=== PATIENT | female | born 1940 | race Caucasian/White ===

== ENCOUNTER 2017-03-22 04:13 | Inpatient (IN) | payer OTHER, MEDICARE ==
[2017-03-22] VITALS (10 sets, daily range): BP systolic 130–170; BP diastolic 67–81; PULSE 71–93; RESP 12–20; TEMP 96.2–98.4; O2SAT 96–98
[~2017-03-22] VITALS: Ht 160 cm; Wt 56.2 kg
[2017-03-22] MEDS ORDERED: AMLO5TAB2 PO (04:37)
[2017-03-22] MEDS ORDERED: LISI-515 PO (04:37)
[2017-03-22] MEDS ORDERED: HYDR-3516 PO (04:37)
[2017-03-22] MEDS ORDERED: BACL10TA PO (04:37)
[2017-03-22] MEDS ORDERED: METO50TA11 PO (04:38)
[2017-03-22 04:51] LABS: AUTOMATED NEUTROPHIL # 15.9 TH/MM3 (1.8-7.7); BASOPHIL # 0.1 TH/MM3 (0-0.2); BASOPHIL % 0.3 % (0.0-2.0); EOSINOPHIL # 0.1 TH/MM3 (0-0.4); EOSINOPHIL % 0.7 % (0.0-4.0); HEMATOCRIT 37.8 % (35.0-46.0); HEMO FLAGS DIFF FINAL; LYMPH % 9.5 % (9.0-44.0); LYMPHOCYTE # 1.8 TH/MM3 (1.0-4.8); MEAN CELL VOLUME 89.1 FL (80.0-100.0); MEAN CORPUSCULAR HEMOGLOBIN 29.4 PG (27.0-34.0); NEUT % 84.5 % (16.0-70.0); PLATELET COUNT 417 TH/MM3 (150-450); RED BLOOD COUNT 4.25 MIL/MM3 (4.00-5.30); RED CELL DISTRIBUTION WIDTH 13.5 % (11.6-17.2); WHITE BLOOD COUNT 18.8 TH/MM3 (4.0-11.0)
--- NOTE | 2017-03-22 04:57 | RADRPT ---
EXAM DATE/TIME: 03/22/2017 04:48 [facility] COMPARISON: No previous studies available for comparison. INDICATIONS : Cough. MEDICAL HISTORY : Carcinoma, breast. SURGICAL HISTORY : Mastectomy, left. ENCOUNTER: Initial ACUITY: 1 day PAIN SCORE: 0/10 LOCATION: Bilateral chest FINDINGS: A single view of the chest demonstrates the lungs to be symmetrically aerated without evidence of mas s, infiltrate or effusion. The cardiomediastinal contours are unremarkable. Osseous structures are intact. CONCLUSION: No acute intrathoracic disease. Elijah Gaona MD on March 22, 2017 at 4:55 Board Certified Radiologist. This report was verified electronically.
--- NOTE | 2017-03-22 04:58 | RADRPT ---
EXAM DATE/TIME: 03/22/2017 04:40 [facility] COMPARISON: No previous studies available for comparison. INDICATIONS : Altered mental status. RADIATION DOSE: 56.35 CTDIvol (mGy) MEDICAL HISTORY : Hypertension. Carcinoma, breast. SURGICAL HISTORY : Mastectomy, left. ENCOUNTER: Initial ACUITY: 1 day PAIN SCALE: 0/10 LOCATION: cranial TECHNIQUE: Multiple contiguous axial images were obtained of the head. Using automated exposure control and adj ustment of the mA and/or kV according to patient size, radiation dose was kept as low as reasonably a chievable to obtain optimal diagnostic quality images. FINDINGS: CEREBRUM: The ventricles are normal for age. No evidence of midline shift, mass lesion, hemorrhage or acute in farction. No extra-axial fluid collections are seen. POSTERIOR FOSSA: The cerebellum and brainstem are intact. The 4th ventricle is midline. The cerebellopontine angle i s unremarkable. EXTRACRANIAL: The visualized portion of the orbits is intact. SKULL: The calvaria is intact. No evidence of skull fracture. CONCLUSION: Unremarkable CT scan of the brain. Elijah Gaona MD on March 22, 2017 at 4:55 Board Certified Radiologist. This report was verified electronically.
--- NOTE | 2017-03-22 05:16 | PD ---
HPI Chief Complaint: Altered Mental Status Time Seen by Provider: 04:22 Travel History International Travel<30 days: No Contact w/Intl Traveler<30days: No Traveled to known affect area: No History of Present Illness HPI The patient is a 77 year old female who presents to the [facility] emergency department with a history of reportedly not feeling right since Wednesday. She reports that she was seen by the nurse practitioner at her primary care physician's office on Wednesday related to an exacerbation of low back pain in the left side of her back. She reports that she was newly placed on baclofen. She reports that since then she has intermittently been taking this, however she cannot specify the frequency. She reports that she feels confused. The patient reports that she lives at home alone. The patient is oriented to person, place, however not time, or details regarding the situation. She denies hitting her head or losing consciousness. She denies having any headache or neck pain. She denies having any dysuria, hematuria, urinary urgency, or frequency. The patient denies any recent fevers, cough, congestion, neck pain, chest pain, shortness of breath, abdominal pain, vomiting, diarrhea, one-sided weakness, slurred speech, dizziness, facial droop, difficulty with word finding ability, or vision changes. PFSH Past Medical History Narrative Medical The patient's past medical history is significant for high blood pressure, history of breast cancer, history of COPD, history of hypertension, history of daily tobacco use. Cancer: Yes (breast) Hypertension: Yes Musculoskeletal: Yes (chronic back pain) Tetanus Vaccination: Unknown Influenza Vaccination: No ?: Not Past Surgical History Narrative Surgical The patient's past surgical history is significant for a mastectomy, left wrist ORIF, tonsillectomy. Other Surgery: Yes (left mastectomy) Social History Alcohol Use: No Tobacco Use: Yes (one pack per day) Substance Use: No Allergies-Medications (Allergen,Severity, Reaction): Coded Allergies: No Known Allergies (Unverified , 03/22/17) Reported Meds & Prescriptions Reported Meds & Active Scripts Active Reported Metoprolol Succinate ER 24 HR (Metoprolol Succinate) 50 Mg Tab 50 Mg PO DAILY Hydrocodone-Acetaminophen 5-325 mg Tab 1 Tab PO Q4H PRN Lisinopril 20 Mg Tab 20 Mg PO DAILY Baclofen 10 Mg Tab 10 Mg PO TID Amlodipine (Amlodipine Besylate) 5 Mg Tab 5 Mg PO DAILY Review of Systems Except as stated in HPI: all other systems reviewed are Neg General / Constitutional: No: Fever Eyes: No: Visual changes HENT: No: Headaches, Neck Stiffness, Neck Pain Cardiovascular: No: Chest Pain or Discomfort Respiratory: No: Shortness of Breath Gastrointestinal: No: Abdominal Pain Genitourinary: No: Dysuria Musculoskeletal: Positive: Myalgias, Arthralgias, Pain Skin: No Rash Neurologic: Positive: Change in Mentation, No: Weakness, Focal Abnormalities, Headache, Slurred Speech, Sensory Disturbance Psychiatric: No: Depression Endocrine: No: Polydipsia Hematologic/Lymphatic: No: Easy Bruising Physical Exam Narrative General: The patient is a well-developed well-nourished female in no acute distress. The patient has difficulty tracking the conversation, easily coming distracted. Head and Neck exam: Head is normocephalic atraumatic. Eyes: EOMI, pupils are equal round and reactive to light. Nose: Midline septum with pink mucous membranes Mouth: Dentition unremarkable. Moist mucus membranes. Posterior oropharynx is not erythematous. No tonsillar hypertrophy. Uvula midline. Airway patent. Neck: No palpable lymphadenopathy. No nuchal rigidity. No thyromegaly. Cardiovascular: Regular rate and rhythm without murmurs, gallops, or rubs. Lungs: Soft expiratory wheezes are audible bilaterally. No conversational dyspnea. No rhonchi or crackles. No accessory muscle use. Abdomen: Soft, without tenderness to palpation in all 4 quadrants of the abdomen. No guarding, rebound, or rigidity. Normal bowel sounds are audible. No tenderness on palpation of McBurney's point. Extremities: No clubbing, cyanosis, or edema. 2+ pulses in all 4 extremities. Back: No spinous process tenderness to palpation. The patient reports tenderness on palpation along the left upper lumbar paraspinal musculature and left sided CVA tenderness. Neurologic Exam: Cranial nerves 2-12 were intact on exam. Strength is 5/5 in all 4 extremities. No sensory deficits noted. The patient is oriented to person, place, however not time or situation. Skin Exam: No rash noted. Intact skin that is warm and dry. Data Data Last Documented VS Vital Signs Date Time Temp Pulse Resp B/P Pulse Ox O2 Delivery O2 Flow Rate FiO2 03/22/17 04:32 16 98 Room Air 03/22/17 04:30 98.2 93 137/67 Orders Electrocardiogram (03/22/17 04:22) Complete Blood Count With Diff (03/22/17 04:22) Comprehensive Metabolic Panel (03/22/17 04:22) Creatine Kinase (Cpk) (03/22/17 04:22) Ckmb (Isoenzyme) Profile (03/22/17 04:22) Troponin I (03/22/17 04:22) Lipase (03/22/17 04:22) Urinalysis - C+S If Indicated (03/22/17 04:22) Cath For Specimen (03/22/17 04:22) Magnesium (Mg) (03/22/17 04:22) Ammonia (03/22/17 04:22) Thyroid Stimulating Hormone (03/22/17 04:22) Chest, Single Ap (03/22/17 04:22) Ct Brain W/O Iv Contrast(Rout) (03/22/17 04:22) Iv Access Insert/Monitor (03/22/17 04:22) Ecg Monitoring (03/22/17 04:22) Oximetry (03/22/17 04:22) Sodium Chlor 0.9% 1000 Ml Inj (Ns 1000 M (03/22/17 06:00) Admit Order (Ed Use Only) (03/22/17 06:13) Labs Laboratory Tests Test 03/22/17 03/22/17 04:40 05:00 White Blood Count 18.8 TH/MM3 Red Blood Count 4.25 MIL/MM3 Hemoglobin 12.5 GM/DL Hematocrit 37.8 % Mean Corpuscular Volume 89.1 FL Mean Corpuscular Hemoglobin 29.4 PG Mean Corpuscular Hemoglobin 33.0 % Concent Red Cell Distribution Width 13.5 % Platelet Count 417 TH/MM3 Mean Platelet Volume 7.1 FL Neutrophils (%) (Auto) 84.5 % Lymphocytes (%) (Auto) 9.5 % Monocytes (%) (Auto) 5.0 % Eosinophils (%) (Auto) 0.7 % Basophils (%) (Auto) 0.3 % Neutrophils # (Auto) 15.9 TH/MM3 Lymphocytes # (Auto) 1.8 TH/MM3 Monocytes # (Auto) 0.9 TH/MM3 Eosinophils # (Auto) 0.1 TH/MM3 Basophils # (Auto) 0.1 TH/MM3 CBC Comment DIFF FINAL Differential Comment Sodium Level 137 MEQ/L Potassium Level 4.0 MEQ/L Chloride Level 103 MEQ/L Carbon Dioxide Level 21.0 MEQ/L Anion Gap 13 MEQ/L Blood Urea Nitrogen 20 MG/DL Creatinine 1.22 MG/DL Estimat Glomerular Filtration 43 ML/MIN Rate Random Glucose 195 MG/DL Calcium Level 12.4 MG/DL Protein Corrected Calcium 12.2 MG/DL Magnesium Level 1.8 MG/DL Total Bilirubin 0.5 MG/DL Aspartate Amino Transf 15 U/L (AST/SGOT) Alanine Aminotransferase 12 U/L (ALT/SGPT) Alkaline Phosphatase 79 U/L Ammonia 14 MCMOL/L Total Creatine Kinase 29 U/L Troponin I LESS THAN 0.02 NG/ML Total Protein 7.4 GM/DL Albumin 3.3 GM/DL Lipase 107 U/L Thyroid Stimulating Hormone 1.750 uIU/ML 3rd Gen Urine Color YELLOW Urine Turbidity CLEAR Urine pH 5.0 Urine Specific [place] 1.019 Urine Protein 30 mg/dL Urine Glucose (UA) NEG mg/dL Urine Ketones 10 mg/dL Urine Occult Blood NEG Urine Nitrite NEG Urine Bilirubin NEG Urine Urobilinogen LESS THAN 2.0 MG/DL Urine Leukocyte Esterase NEG Urine RBC LESS THAN 1 /hpf Urine WBC 1 /hpf Urine Squamous Epithelial <1 /hpf Cells Urine Mucus FEW /lpf Microscopic Urinalysis Comment CATH-CULT NOT IND MDM Medical Decision Making Medical Screen Exam Complete: Yes Emergency Medical Condition: Yes Medical Record Reviewed: Yes Interpretation(s) Last Impressions Head CT 03/22/17421 Signed Impressions: Service Date/Time: Wednesday, March 22, 2017 04:40 - CONCLUSION: Unremarkable CT scan of the brain. Elijah Gaona MD Chest X-Ray 03/22/17421 Signed Impressions: Service Date/Time: Wednesday, March 22, 2017 04:48 - CONCLUSION: No acute intrathoracic disease. Elijah Gaona MD Differential Diagnosis Medication side effect, versus metabolic encephalopathy, versus intracranial abnormality, versus encephalopathy related to sepsis, versus urinary tract infection Narrative Course During the course of the patients emergency department visit, the patients history, examination, and differential diagnosis were reviewed with the patient. The patient had IV access obtained and blood work sent for analysis. The patient was placed on a room service attendant with oximetry and blood pressure monitoring. An EKG and. The patient's EKG shows a sinus rhythm, heart rate of 98, no acute ST segment elevation or depression, T waves are inverted in V1. The patient was initially provided a DuoNeb 1 for wheezing, normal saline 1 L IV fluid bolus was administered. The patients laboratory studies were reviewed and remarkable for a white count of 18.8, normal hemoglobin, CMP is remarkable for hypercalcemia, ammonia level XIV and asked within normal limits. Urinalysis showed ketones present, no signs of infection. Radiology studies were reviewed and remarkable for a chest x-ray that showed no acute abnormality. CT scan of the brain showed no acute abnormality. The patient's altered mentation is thought to be related to a combination of new use of baclofen, and hypercalcium. The patient will be admitted to the hospital for continued evaluation and treatment. The patients results were discussed with the patient, including the plan of care. I explained that further testing and/ or monitoring is indicated based on the patients history, examination, and/ or laboratory findings. Therefore, I recommended admission for additional evaluation. The patient expressed understanding and was agreeable with this plan. The patient was admitted to the hospital in stable condition and [facility] Physician Communication Physician Communication The patient's case was discussed with Dr. Herman who did agree to admit the patient for further evaluation and treatment at this time. Diagnosis Primary Impression: Altered mental status Qualified Code: R41.0 - Disorientation Additional Impressions: Medication side effect Qualified Code: T88.7XXA - Medication side effect, initial encounter Hypercalcemia Leukocytosis Qualified Code: D72.829 - Leukocytosis, unspecified type Admitting Information Admitting Physician Requests: Viviana Richter MD Mar 22, 2017 05:16
[2017-03-22 05:24] LABS: BLOOD, URINE NEG (NEG); COMMENT (UR) CATH-CULT NOT IND; CULTURE IF INDICATED CATH CULTURE NOT IND; GLUCOSE,URINE NEG (NEG); KETONE, URINE 10 mg/dL (NEG); MUCUS URINE FEW /lpf (OCC); NITRITE,URINE NEG (NEG); SQUAMOUS EPITHELIAL CELL URINE <1 /hpf (0-5); URINE COLOR YELLOW (YELLW/STRAW)
[2017-03-22 05:43] LABS: ALKALINE PHOSPHATASE 79 U/L (45-117); ALT (GPT) 12 U/L (10-53); ANION GAP 13 MEQ/L (5-15); AST (GOT) 15 U/L (15-37); BLOOD UREA NITROGEN 20 MG/DL (7-18); CHLORIDE 103 MEQ/L (98-107); GLOMERULAR FILTRATION RATE 43 ML/MIN (>89); MAGNESIUM 1.8 MG/DL (1.5-2.5); SODIUM (NA) 137 MEQ/L (136-145); TOTAL BILIRUBIN ADULT 0.5 MG/DL (0.2-1.0)
[2017-03-22 05:54] LABS: CALCIUM-PROTEIN CORRECTED 12.2 MG/DL (8.5-10.1); CREATINE KINASE 29 U/L (26-192)
[2017-03-22] MEDS ORDERED: SODIUM CHLOR 0.9% 1000 ML INJ 1,000 ML IV ONE (06:00)
[2017-03-22] MEDS ORDERED: ACETAMINOPHEN 325 MG TAB PO PRN ×2 (06:30)
[2017-03-22] MEDS ORDERED: NALOXONE HCL 0.4 MG/ML AMP IV PRN (06:30)
[2017-03-22] MEDS ORDERED: ONDANSETRON HCL 4 MG/2 ML VIAL IVP PRN (06:30)
[2017-03-22] MEDS ORDERED: SODIUM CHLORIDE 0.9% FLUSH 10 ML FLUSH IV FLUSH PRN ×2 (06:30→06:45)
[2017-03-22] MEDS ORDERED: RESP: ALBUTEROL 2.5 MG/IPRATROPIUM 0.5 MG NEB (PRN) NEB (06:30)
[2017-03-22] MEDS ORDERED: SODIUM CHLORIDE 0.9% FLUSH 10 ML FLUSH IV FLUSH SCH (09:00)
[2017-03-22] MEDS: SODIUM CHLORIDE 0.9% FLUSH 10 ML FLUSH IV FLUSH SCH (09:00)
[2017-03-22] MEDS: METOPROLOL SUCCINATE 50 MG EXTENDED RELEASE TAB PO SCH (09:58)
[2017-03-22] MEDS: amLODIPine BESYLATE 5 MG TAB PO SCH (09:58)
[2017-03-22] MEDS: SODIUM CHLOR 0.9% 1000 ML INJ 1,000 ML IV SCH ×2 (10:00→16:34)
--- NOTE | 2017-03-22 14:24 | EKG ---
Date Performed: 03/22/2017 Time Performed: 04:24:48 PTAGE: 77 years EKG: Sinus rhythm POSSIBLE RIGHT VENTRICULAR CONDUCTION DELAY BORDERLINE ECG INTERPRETATION BASED ON A DEFAULT AGE OF 41 YEARS NO PREVIOUS TRACING DOCTOR: Kalin Mazariegos Interpretating Date/Time 03/22/2017 14:21:55
--- NOTE | 2017-03-22 15:00 | HHI.HP ---
[facility] Admission Diagnosis AMS, Hypercalcemia Diagnoses: Chief Complaint: confusion Travel History International Travel<30 Days: No Contact w/Intl Traveler <30 Da: No Traveled to Known Affected Are: No History of Present Illness 77 y/o female with a history of breast CA s/p mastectomy 2015, HTN, and COPD presented to the ED with confusion. Patient states she went to her PCP on Wednesday with complaints of left flank pain and she was given an RX for Baclofen. She took one pill late Wednesday night and then 3 pills on Wednesday and another 2 on Wednesday she thinks. She felt that she was confused and not thinking correctly so she came into the ED. She is slightly confused as she thinks it is 2013, but she knows the month, place and president. She denies any other complaints. No chest pain, sob, dysuria or nausea. While talking with the patient her sister called and the patient seemed confused about the events for the last few days. She say she has not been eating or drinking well, loss of appetite and has lost 9lbs in 8 days. When told her calcium level was high she states she takes calcium supplements daily with her slimfast. She denies any focal weakness or any other neuro symptoms. Review of Systems Constitutional: COMPLAINS OF: Weight loss, Dizziness, DENIES: Fever, Chills Respiratory: DENIES: Cough, Shortness of breath Cardiovascular: DENIES: Chest pain, Lower Extremity Edema Gastrointestinal: DENIES: Abdominal pain, Diarrhea, Nausea, Vomiting Genitourinary: DENIES: Urgency, Dysuria Musculoskeletal: DENIES: Back pain, Neck pain Integumentary: DENIES: Rash Hematologic/lymphatic: DENIES: Lymphadenopathy Immunologic/allergic: DENIES: Urticaria Neurologic: DENIES: Headache Except as stated in HPI: all other systems reviewed are Neg Past Family Social History Past Medical History Breast Cancer HTN COPD Tobacco abuse Past Surgical History 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 Reported Medications Reported Meds & Active Scripts Active Reported Metoprolol Succinate ER 24 HR (Metoprolol Succinate) 50 Mg Tab 50 Mg PO DAILY Hydrocodone-Acetaminophen 5-325 mg Tab 1 Tab PO Q4H PRN Lisinopril 20 Mg Tab 20 Mg PO DAILY Baclofen 10 Mg Tab 10 Mg PO TID Amlodipine (Amlodipine Besylate) 5 Mg Tab 5 Mg PO DAILY Allergies: Coded Allergies: No Known Allergies (Unverified , 03/22/17) Active Ordered Medications Current Medications Medications (Trade) Dose Ordered Sig/Bassem Route Start Time Stop Time Status Last Admin (Norvasc) 5 mg DAILY PO 03/22/17 09:00 03/22/17 09:58 (Toprol Xl) 50 mg DAILY PO 03/22/17 09:00 03/22/17 09:58 (NS Flush) 2 ml UNSCH PRN IV FLUSH 03/22/17 06:30 (NS Flush) 2 ml BID IV FLUSH 03/22/17 09:00 03/22/17 09:00 (Tylenol) 650 mg Q4H PRN PO 03/22/17 06:30 (Zofran Inj) 4 mg Q6H PRN IVP 03/22/17 06:30 (Tylenol) 650 mg Q6H PRN PO 03/22/17 06:30 Naloxone HCl 0.4 mg 0.4 mg UNSCH PRN IV 03/22/17 06:30 (NS 1000 ml Inj) 1,000 ml @ 100 mls/hr Q10H IV 03/22/17 06:34 03/22/17 10:00 Family History Dad and brother: stomach cancer Social History Tobacco use: 1 PPD Alcohol use: Denies Illicit drug use: Denies Physical Exam Vital Signs Vital Signs Date Time Temp Pulse Resp B/P Pulse Ox O2 Delivery O2 Flow Rate FiO2 03/22/17 10:00 96.3 87 19 146/80 97 03/22/17 06:34 84 16 130/79 96 Room Air 03/22/17 04:32 16 98 Room Air 03/22/17 04:32 18 03/22/17 04:30 98.2 93 16 137/67 98 Physical Exam GENERAL: This is a well-nourished, well-developed patient, in no apparent distress. SKIN: No rashes, ecchymoses or lesions. Cool and dry. HEAD: Atraumatic. Normocephalic. EYES: Pupils equal round and reactive. ENT: Nose without bleeding, purulent drainage or septal hematoma. Airway patent. NECK: Trachea midline. No JVD CARDIOVASCULAR: Regular rate and rhythm without murmurs, gallops, or rubs. RESPIRATORY: Clear to auscultation. Breath sounds equal bilaterally. No wheezes , rales, or rhonchi. GASTROINTESTINAL: Abdomen soft, non-tender, nondistended. No hepato-splenomegaly , or palpable masses. No guarding. MUSCULOSKELETAL: Extremities without clubbing, cyanosis, or edema. No joint tenderness, effusion, or edema noted. No calf tenderness. NEUROLOGICAL: Awake and alert. Slightly confused at times but can hold a conversation. Motor and sensory grossly within normal limits. Five out of 5 muscle strength in all muscle groups. Normal speech. Laboratory Laboratory Tests Test 03/22/17 03/22/17 04:40 05:00 White Blood Count 18.8 Red Blood Count 4.25 Hemoglobin 12.5 Hematocrit 37.8 Mean Corpuscular Volume 89.1 Mean Corpuscular Hemoglobin 29.4 Mean Corpuscular Hemoglobin 33.0 Concent Red Cell Distribution Width 13.5 Platelet Count 417 Mean Platelet Volume 7.1 Neutrophils (%) (Auto) 84.5 Lymphocytes (%) (Auto) 9.5 Monocytes (%) (Auto) 5.0 Eosinophils (%) (Auto) 0.7 Basophils (%) (Auto) 0.3 Neutrophils # (Auto) 15.9 Lymphocytes # (Auto) 1.8 Monocytes # (Auto) 0.9 Eosinophils # (Auto) 0.1 Basophils # (Auto) 0.1 CBC Comment DIFF FINAL Differential Comment Sodium Level 137 Potassium Level 4.0 Chloride Level 103 Carbon Dioxide Level 21.0 Anion Gap 13 Blood Urea Nitrogen 20 Creatinine 1.22 Estimat Glomerular Filtration 43 Rate Random Glucose 195 Calcium Level 12.4 Protein Corrected Calcium 12.2 Magnesium Level 1.8 Total Bilirubin 0.5 Aspartate Amino Transf 15 (AST/SGOT) Alanine Aminotransferase 12 (ALT/SGPT) Alkaline Phosphatase 79 Ammonia 14 Total Creatine Kinase 29 Troponin I LESS THAN 0.02 Total Protein 7.4 Albumin 3.3 Lipase 107 Thyroid Stimulating Hormone 1.750 3rd Gen Urine Color YELLOW Urine Turbidity CLEAR Urine pH 5.0 Urine Specific [place] 1.019 Urine Protein 30 Urine Glucose (UA) NEG Urine Ketones 10 Urine Occult Blood NEG Urine Nitrite NEG Urine Bilirubin NEG Urine Urobilinogen LESS THAN 2.0 Urine Leukocyte Esterase NEG Urine RBC LESS THAN 1 Urine WBC 1 Urine Squamous Epithelial <1 Cells Urine Mucus FEW Microscopic Urinalysis Comment CATH-CULT NOT IND Result Diagram: 03/22/1743903/22/17439 Imaging Last Impressions Head CT 03/22/17421 Signed Impressions: Service Date/Time: Wednesday, March 22, 2017 04:40 - CONCLUSION: Unremarkable CT scan of the brain. Elijah Gaona MD Chest X-Ray 03/22/17421 Signed Impressions: Service Date/Time: Wednesday, March 22, 2017 04:48 - CONCLUSION: No acute intrathoracic disease. Elijah Gaona MD Assessment and Plan Problem List: (1) Acute encephalopathy ICD Code: G93.40 Status: Acute (2) Hypercalcemia ICD Code: E83.52 Status: Acute (3) DELANEY (acute kidney injury) ICD Code: N17.9 Status: Acute (4) HTN (hypertension) ICD Code: I10 Status: Chronic (5) COPD (chronic obstructive pulmonary disease) ICD Code: J44.9 Status: Chronic Assessment and Plan 77 y/o with a history of Breast cancer, COPD, and HTN presented to the ED with confusion after taking baclofen for a few days. Acute Encephalopathy, due to adverse reaction to baclofen -Head CT neg, if confusion persists or does not rapidly improve, will order MRI -UA negative -Parathyroid pending Hypercalcemia, likely due to dehydration and calcium supplements -IVF, 1 bolus given in ED. Continue IVF -Labs in AM DELANEY, likely due to dehydration Creatine 1.22, unknown baseline, patient denies any kidney disease -Cont IVF, repeat labs in am HTN, chronic -Cont home medications Norvasc and metoprolol -Monitor vitals COPD, chronic -Duonebs PRN Tobacco abuse -Counseled to quit DVT prophylaxis: SCDs Written by LESLIE Dodd acting as scribe for [Jeremías] on 03/22/17 at 13 :05. This note was transcribed by scribe [LESLIE Dodd]. I, Dr. Sudheer Veronica personally performed the history, physical exam, and medical decision making; and confirmed the accuracy of the information in the transcribed note. Authenticated by Dr. Sudheer Veronica on 4/24/17 at 1400. Discussed Condition With Patient and RN Physician Certification 2 Midnight Certification Type: Admission for Inpatient Services Order for Inpatient Services The services are ordered in accordance with Medicare regulations or non- Medicare payer requirements, as applicable. In the case of services not specified as inpatient-only, they are appropriately provided as inpatient services in accordance with the 2-midnight benchmark. Estimated LOS (days): 2 days is the estimated time the patient will need to remain in the hospital, assuming treatment plan goals are met and no additional complications. Post-Hospital Plan: Jillian Pelletier Mar 22, 2017 15:00 Sudheer Veronica MD Mar 22, 2017 15:11
[2017-03-23] VITALS (8 sets, daily range): BP systolic 132–156; BP diastolic 64–80; PULSE 61–83; RESP 16–20; TEMP 97.1–99.3; O2SAT 96–99
[2017-03-23] MEDS: SODIUM CHLOR 0.9% 1000 ML INJ 1,000 ML IV SCH ×2 (02:34→23:07)
[2017-03-23 06:22] LABS: AUTOMATED NEUTROPHIL # 9.4 TH/MM3 (1.8-7.7); BASOPHIL # 0.1 TH/MM3 (0-0.2); BASOPHIL % 0.7 % (0.0-2.0); EOSINOPHIL # 0.2 TH/MM3 (0-0.4); EOSINOPHIL % 1.7 % (0.0-4.0); HEMATOCRIT 33.2 % (35.0-46.0); HEMO FLAGS DIFF FINAL; LYMPH % 14.8 % (9.0-44.0); LYMPHOCYTE # 1.8 TH/MM3 (1.0-4.8); MEAN CELL VOLUME 87.2 FL (80.0-100.0); MEAN CORPUSCULAR HEMOGLOBIN 29.9 PG (27.0-34.0); MEAN CORPUSCULAR HGB CONC 34.3 % (32.0-36.0); MONO % 7.2 % (0.0-8.0); NEUT % 75.6 % (16.0-70.0); PLATELET COUNT 385 TH/MM3 (150-450); RED BLOOD COUNT 3.81 MIL/MM3 (4.00-5.30); RED CELL DISTRIBUTION WIDTH 13.4 % (11.6-17.2); WHITE BLOOD COUNT 12.5 TH/MM3 (4.0-11.0)
[2017-03-23 06:49] LABS: ALKALINE PHOSPHATASE 69 U/L (45-117); ALT (GPT) 11 U/L (10-53); ANION GAP 6 MEQ/L (5-15); AST (GOT) 14 U/L (15-37); BICARBONATE 26.3 MEQ/L (21.0-32.0); BLOOD UREA NITROGEN 12 MG/DL (7-18); CHLORIDE 107 MEQ/L (98-107); GLOMERULAR FILTRATION RATE 76 ML/MIN (>89); POTASSIUM 3.6 MEQ/L (3.5-5.1); SODIUM (NA) 139 MEQ/L (136-145); TOTAL BILIRUBIN ADULT 0.4 MG/DL (0.2-1.0)
[2017-03-23] MEDS: SODIUM CHLORIDE 0.9% FLUSH 10 ML FLUSH IV FLUSH SCH ×2 (09:00→21:00)
[2017-03-23] MEDS: amLODIPine BESYLATE 5 MG TAB PO SCH (09:39)
[2017-03-23] MEDS: METOPROLOL SUCCINATE 50 MG EXTENDED RELEASE TAB PO SCH (09:39)
--- NOTE | 2017-03-23 15:13 | HHI.PR ---
Subjective Remarks Patient seen in follow up for encephalopathy, Hypercalcemia. Patient reports she is feeling much better today except for some persistent left lower rib pain. I discussed with her sister Rayne over the phone. No longer having confusions. However her sister admits that for the past few months , it appears that her memory have not been the same. Objective Vitals Vital Signs Date Time Temp Pulse Resp B/P Pulse Ox O2 Delivery O2 Flow Rate FiO2 03/23/17 11:20 98.0 61 20 150/73 99 03/23/17 08:00 97.1 83 20 137/80 97 03/23/17 04:00 97.8 68 18 156/77 96 03/23/17 00:00 98.5 76 17 150/73 96 03/22/17 20:00 98.4 75 18 170/81 97 03/22/17 19:55 83 03/22/17 17:04 72 03/22/17 16:00 97.2 83 12 136/80 96 I/O 03/22/17 03/22/17 03/22/17 03/23/17 03/23/17 03/23/17 07:00 15:00 23:00 07:00 15:00 23:00 Intake Total 480 ml 880 ml 240 ml Output Total 650 ml Balance -170 ml 880 ml 240 ml Intake Oral 480 ml 240 ml 240 ml IV Total 640 ml Output Urine Total 650 ml # Voids 3 2 1 # Bowel Movements 0 0 Result Diagram: 03/23/17 0526 03/23/17 0526 Imaging Last Impressions Ribs X-Ray 03/23/17 0000 Signed Impressions: Service Date/Time: Thursday, March 23, 2017 15:51 - CONCLUSION: 1. Patchy opacity in the left lung base of concern for pneumonia. 2. Ribs are intact and there is no pneumothorax. Lázaro Bey MD Head CT 03/22/17421 Signed Impressions: Service Date/Time: Wednesday, March 22, 2017 04:40 - CONCLUSION: Unremarkable CT scan of the brain. Elijah Gaona MD Chest X-Ray 03/22/17421 Signed Impressions: Service Date/Time: Wednesday, March 22, 2017 04:48 - CONCLUSION: No acute intrathoracic disease. Elijah Gaona MD Objective Remarks GENERAL: This is a well-nourished, well-developed patient, in no apparent distress. CARDIOVASCULAR: Regular rate and rhythm without murmurs, gallops, or rubs. RESPIRATORY: Clear to auscultation. Breath sounds equal bilaterally. No wheezes , rales, or rhonchi. GASTROINTESTINAL: Abdomen soft, non-tender, nondistended. Normal active bowel sounds MUSCULOSKELETAL: Extremities without clubbing, cyanosis, or edema. Patient c/o some tenderness to palpation of the left lower ribs. NEURO: Alert & Oriented x4 to person, place, time, situation. Moves all ext x4 A/P Problem List: (1) Acute encephalopathy ICD Code: G93.40 Status: Acute (2) Hypercalcemia ICD Code: E83.52 Status: Acute (3) DELANEY (acute kidney injury) ICD Code: N17.9 Status: Acute (4) HTN (hypertension) ICD Code: I10 Status: Chronic (5) COPD (chronic obstructive pulmonary disease) ICD Code: J44.9 Status: Chronic Assessment and Plan 77 y/o with a history of Breast cancer, COPD, and HTN presented to the ED with confusion after taking baclofen for a few days. Acute Encephalopathy, probably due to adverse reaction to baclofen. Resolved. There may be some underlying very early dementia symptoms based on conversation with her sister. PCP can refer to outpatient neurologist for further neurocognitive testing. Seems to be back at her baseline. -Head CT neg. -UA negative -Parathyroid pending Hypercalcemia, likely due to dehydration and patient was taking calcium supplements, improving with IVF. Having rib pain as well. Will obtain x-ray of the ribs. -Continue IVF -Labs in AM DELANEY, likely due to dehydration Creatine 1.22, unknown baseline, patient denies any kidney disease -Cont IVF, repeat labs in am HTN, chronic -Cont home medications Norvasc and metoprolol -Monitor vitals Left rib pain: Persistent - Will obtain plain film to evaluate bones. Pain control COPD, chronic -Duonebs PRN Tobacco abuse -Counseled to quit Discharge Planning If patient continues to improve. She can be discharge tomorrow to follow up outpatient. Sudheer Veronica MD Mar 23, 2017 15:13
--- NOTE | 2017-03-23 16:37 | RADRPT ---
EXAM DATE/TIME: 03/23/2017 15:51 [facility] COMPARISON: CHEST SINGLE AP, March 22, 2017, 4:48. INDICATIONS : Left rib pain with no known injury. MEDICAL HISTORY : None. SURGICAL HISTORY : None. ENCOUNTER: Initial ACUITY: 2 months PAIN SCORE: 9/10 LOCATION: Left lower chest FINDINGS: Multiple views of both ribs were performed. There is no evidence of displaced fracture. No destruct favian lesions or areas of periosteal thickening are seen. There is patchy opacity in the left lung base . Expiratory view of the chest is negative for pneumothorax. The mediastinal structures are midline. CONCLUSION: 1. Patchy opacity in the left lung base of concern for pneumonia. 2. Ribs are intact and there is no pneumothorax. Lázaro Bey MD on March 23, 2017 at 16:33 Board Certified Radiologist. This report was verified electronically.
[2017-03-24] VITALS (8 sets, daily range): BP systolic 105–156; BP diastolic 60–82; PULSE 69–91; RESP 16–19; TEMP 97.3–98.6; O2SAT 95–97
[2017-03-24] MEDS: SODIUM CHLORIDE 0.9% FLUSH 10 ML FLUSH IV FLUSH SCH ×2 (09:00→20:50)
[2017-03-24] MEDS ORDERED: LACTULOSE SYRUP 20 GM/30 ML CUP PO PRN (09:30)
--- NOTE | 2017-03-24 09:34 | RADRPT ---
EXAM DATE/TIME: 03/24/2017 09:06 [facility] COMPARISON: RIBS BILAT(W PA CXR [id number]), March 23, 2017, 15:51. CHEST SINGLE AP, March 22, 2017, 4:48. INDICATIONS : Left-sided chest and rib pain. Abnormal ribs series demonstrating a left lung opacity. RADIATION DOSE: 3.45 CTDIvol (mGy) MEDICAL HISTORY : Hypertension. Carcinoma, breast. SURGICAL HISTORY : Mastectomy, left. ENCOUNTER: Initial ACUITY: 1 day PAIN SCALE: 4/10 LOCATION: Left chest TECHNIQUE: Volumetric scanning of the chest was performed. Using automated exposure control and adjustment of t he mA and/or kV according to patient size, radiation dose was kept as low as reasonably achievable to obtain optimal diagnostic quality images. FINDINGS: LUNGS: There is a cavitary mass in the left lower lobe measuring up to 4.2 x 3.5 x 5.2 cm in greatest diamet er. The central portion is cavitary surrounded by thick irregular wall measuring up to approximately 1.7 cm in greatest diameter. There is underlying emphysema and mild scarring. No additional masses ar e identified. PLEURAE: There is focal pleural thickening and apparent small effusion adjacent to the mass. There is a small area of adjacent rib deformity. MEDIASTINUM: There is right paratracheal adenopathy measuring up to 2.9 x 2.7 cm. There is subcarinal adenopathy a s well. There is no definite hilar adenopathy on this noncontrast study which reduces the sensitivity . Tracheal calcifications are present. There are mild abscess chronic changes in the aorta. AXILLAE: Within normal limits. No lymphadenopathy. MUSCULOSKELETAL: Within normal limits for patient age. MISCELLANEOUS: The visualized upper abdominal organs demonstrate no acute abnormality. CONCLUSION: 1. Cavitary mass in the left lower lobe concern for squamous cell carcinoma versus possible fungal in fection. This would be amenable to CT-guided core biopsy. 2. Adjacent pleural thickening and apparent small effusion with subtle adjacent rib destruction. 3. Mediastinal adenopathy. Lázaro Bey MD on March 24, 2017 at 9:18 Board Certified Radiologist. This report was verified electronically.
[2017-03-24] MEDS: METOPROLOL SUCCINATE 50 MG EXTENDED RELEASE TAB PO SCH (09:46)
[2017-03-24] MEDS: amLODIPine BESYLATE 5 MG TAB PO SCH (09:47)
[2017-03-24] MEDS: SODIUM CHLOR 0.9% 1000 ML INJ 1,000 ML IV SCH (09:48)
--- NOTE | 2017-03-24 12:38 | HHI.PR ---
Subjective Remarks Follow-up hypercalcemia and encephalopathy. States she is better she is alert and oriented with episodes of confusion. Made aware of abnormal lung CT agrees with a biopsy. History of breast cancer status post surgery. Discussed with RN Objective Vitals Vital Signs Date Time Temp Pulse Resp B/P Pulse Ox O2 Delivery O2 Flow Rate FiO2 03/24/17 09:00 81 03/24/17 08:00 97.8 89 18 152/73 97 03/24/17 05:55 98.0 91 16 156/82 96 03/23/17 23:00 70 03/23/17 20:03 70 03/23/17 19:52 99.3 78 16 132/64 96 03/23/17 16:48 98.6 75 17 140/67 97 I/O 03/23/17 03/23/17 03/23/17 03/24/17 03/24/17 03/24/17 07:00 15:00 23:00 07:00 15:00 23:00 Intake Total 240 ml 480 ml 563 ml Output Total 550 ml Balance 240 ml 480 ml 13 ml Intake Oral 240 ml 480 ml 100 ml IV Total 463 ml Output Urine Total 550 ml # Voids 1 3 2 # Bowel Movements 0 0 0 0 Result Diagram: 03/23/17 0526 03/23/17 0526 Imaging Last Impressions Chest CT 03/24/17 0600 Signed Impressions: Service Date/Time: Friday, March 24, 2017 09:06 - CONCLUSION: 1. Cavitary mass in the left lower lobe concern for squamous cell carcinoma versus possible fungal infection. This would be amenable to CT-guided core biopsy. 2. Adjacent pleural thickening and apparent small effusion with subtle adjacent rib destruction. 3. Mediastinal adenopathy. Lázaro Bey MD Ribs X-Ray 03/23/17 0000 Signed Impressions: Service Date/Time: Thursday, March 23, 2017 15:51 - CONCLUSION: 1. Patchy opacity in the left lung base of concern for pneumonia. 2. Ribs are intact and there is no pneumothorax. Lázaro Bey MD Head CT 03/22/17421 Signed Impressions: Service Date/Time: Wednesday, March 22, 2017 04:40 - CONCLUSION: Unremarkable CT scan of the brain. Elijah Gaona MD Chest X-Ray 03/22/17421 Signed Impressions: Service Date/Time: Wednesday, March 22, 2017 04:48 - CONCLUSION: No acute intrathoracic disease. Elijah Gaona MD Objective Remarks GENERAL: Well-developed, well-nourished in no distress on room air SKIN: Warm and dry. HEAD: Atraumatic. Normocephalic. EYES: Pupils equal and round. No scleral icterus. No injection or drainage. ENT: No nasal bleeding or discharge. Mucous membranes pink and moist. NECK: Trachea midline. No JVD. CARDIOVASCULAR: Regular rate and rhythm. RESPIRATORY: No accessory muscle use. Clear to auscultation. Breath sounds equal bilaterally. GASTROINTESTINAL: Abdomen soft, non-tender, nondistended. MUSCULOSKELETAL: Extremities without clubbing, cyanosis, or edema. No obvious deformities. NEUROLOGICAL: Awake and alert. No obvious cranial nerve deficits. Motor grossly within normal limits. Five out of 5 muscle strength in the arms and legs. Normal speech. PSYCHIATRIC: Appropriate mood and affect; insight and judgment normal. A/P Problem List: (1) Acute encephalopathy ICD Code: G93.40 Status: Acute (2) Hypercalcemia ICD Code: E83.52 Status: Acute (3) DELANEY (acute kidney injury) ICD Code: N17.9 Status: Acute (4) HTN (hypertension) ICD Code: I10 Status: Chronic (5) COPD (chronic obstructive pulmonary disease) ICD Code: J44.9 Status: Chronic Assessment and Plan 77 y/o with a history of Breast cancer, COPD, and HTN presented to the ED with confusion after taking baclofen for a few days. Acute Encephalopathy, probably due to adverse reaction to baclofen. Resolved. There may be some underlying very early dementia symptoms based on conversation with her sister. PCP can refer to outpatient neurologist for further neurocognitive testing. Seems to be back at her baseline. -Head CT neg. -UA negative -Parathyroid low Hypercalcemia, likely due to dehydration and patient was taking calcium supplements, improving with IVF. Having rib pain as well. -Continue IVF -Labs in AM DELANEY, likely due to dehydration Creatine 1.22, unknown baseline, patient denies any kidney disease -Cont IVF, repeat labs in am. Improving HTN, chronic -Cont home medications Norvasc and metoprolol -Monitor vitals COPD, chronic -Duonebs PRN Tobacco abuse -Counseled to quit Cavitary mass in the left lower lobe concern for squamous cell carcinoma versus possible fungal infection. This would be amenable to CT-guided core biopsy, IR consulted as well as pulmonary DVT prophylaxis with SCD and early ambulation. Hold pharmacological prophylaxis secondary to procedure Aguila Ordoñez MD Mar 24, 2017 12:38
[2017-03-24 14:20] LABS: APTT (PATIENT) 28.3 SEC (24.3-30.1); PROTHROMBIN TIME - PATIENT 10.8 SEC (9.8-11.6)
[2017-03-24] MEDS ORDERED: LIDOCAINE 1%/EPINEPHrine 1:100,000 SOLN 20 ML VIAL ONE (14:41)
[2017-03-24] MEDS ORDERED: GADODIAMIDE PF 287 MG/ML 10 ML VIAL (for RAD MRI) IV ONE (16:36)
--- NOTE | 2017-03-24 16:56 | RADRPT ---
EXAM DATE/TIME: 03/24/2017 16:18 [facility] COMPARISON: CT BRAIN W/O CONTRAST, March 22, 2017, 4:40. INDICATIONS : Metastatic disease. Altered mental status. CONTRAST: 10 cc Omniscan (gadodiamide) IV MEDICAL HISTORY : Hypertension. Chronic obstructive pulmonary disease. Carcinoma, breast. SURGICAL HISTORY : Mastectomy, left. ENCOUNTER: Subsequent ACUITY: 2 day PAIN SCORE: 0/10 LOCATION: head. TECHNIQUE: Multiplanar, multisequence MRI of the brain was performed both prior to and following the administrat ion of paramagnetic contrast. FINDINGS: CEREBRUM: The ventricles are normal for age. No evidence of midline shift, mass lesion, hemorrhage or acute in farction. No extraaxial fluid collections are seen. The pituitary gland and suprasellar cistern are normal in configuration. WHITE MATTER: On the flair weighted images there are punctate foci of scattered signal in the white matter characte ristic of chronic small vessel ischemic change. POSTERIOR FOSSA: The cerebellum and brainstem are intact. The 4th ventricle is midline. The cerebellopontine angle is unremarkable. The cerebellar tonsils are normal in position. DIFFUSION IMAGING: No focal areas of restricted diffusion are seen. No evidence of acute infarction. EXTRACRANIAL: The visualized portions of the orbits and paranasal sinuses are unremarkable. POST-CONTRAST: No abnormal areas of parenchymal or dural enhancement. No evidence of blood-brain barrier breakdown. CONCLUSION: 1. No evidence of metastatic disease. 2. Mild chronic small vessel ischemic changes. Lázaro Bey MD on March 24, 2017 at 16:50 Board Certified Radiologist. This report was verified electronically.
[2017-03-24] MEDS: DOCUSATE SODIUM 50 MG/SENNA 8.6 MG TAB PO SCH (22:48)
[2017-03-25] VITALS (8 sets, daily range): BP systolic 121–153; BP diastolic 60–72; PULSE 64–77; RESP 16–20; TEMP 97.9–98.5; O2SAT 95–96
[2017-03-25 06:56] LABS: BICARBONATE 28.7 MEQ/L (21.0-32.0); MAGNESIUM 1.9 MG/DL (1.5-2.5); POTASSIUM 3.8 MEQ/L (3.5-5.1)
--- NOTE | 2017-03-25 08:33 | MB ---
cc: YESI DUONG KASHYAP M.D. DATE OF CONSULTATION 03/24/[address] Ordoñez REASON FOR CONSULTATION Evaluation of a lung mass HISTORY OF PRESENT ILLNESS Ms. Brown is a pleasant 77-year-old female who has a longstanding history of smoking since age 18 and continues to smoke one pack of cigarettes a day. She also has a history of CA of the breast status post left mastectomy. She did not require any chemotherapy or radiation therapy. The patient has been getting confused over the last few weeks. She was also complaining of pain in the left flank area. She was prescribed Baclofen. She took a few tablets and was getting worse and came to the emergency room. She had a workup done. She had a CT scan of the brain done which was unremarkable. Her chest x-ray showed no acute intrathoracic process. MRI of the brain shows no evidence of metastatic disease. She had a CT scan of the chest done which shows that she has a cavitary mass in the left lower lobe concerning for squamous cell carcinoma versus fungal infection. She also has had pleural thickening and apparent small effusion and has rib destruction. She has also mediastinal adenopathy. She was also found to have hypercalcemia. She is being treated aggressively and is improving. PAST MEDICAL HISTORY Significant for a history of: 1. Hypertension 2. History of CA of the breast status post left mastectomy. 3. Nicotine use. 4. COPD MEDICATIONS She is currently takin. Colace 2. Amlodipine 5 mg 3. Metoprolol 50 mg a day 4. She is taking normal saline. 5. Albuterol/Atrovent nebulizer treatment. ALLERGIES NO KNOWN DRUG ALLERGIES. SOCIAL HISTORY She is . She used to work for the [employer]. Long history of smoking and continues to smoke. No alcohol abuse. FAMILY HISTORY She has two children who live in [place]. REVIEW OF SYSTEMS She has lost about 10 pounds of weight recently. No hemoptysis. No DVT, pulmonary embolism. No seizure, stroke or epilepsy. PHYSICAL EXAM This is an elderly female in no distress. VITAL SIGNS: Blood pressure 105/64, heart rate is 71, respiratory rate 19, pulse rate 90, temperature 97.3. HEENT: Pupils are equal and reactive to light. Oral mucosa, nasal mucosa normal. NECK: Supple. JVP not raised. CHEST: Equal bilaterally. No rhonchi. CARDIOVASCULAR: S1 and S2 normal. ABDOMEN: Benign. EXTREMITIES: No edema. IMPRESSION 1. Cavitary mass in the left lung possible squamous cell Carcinoma. 2. 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 3. Small pleural effusion and mediastinal lymph node 4. COPD 5. Nicotine use 6. Hypercalcemia 7. History of CA of the breast status post left mastectomy. 8. Hypertension PLAN The patient is being planned for CT-guided lung biopsy. We will check the results. She is being hydrated and correct her calcium. Check her pulmonary function study. Advised her to quit smoking. Further treatment will depend on her course in the hospital. Thank you Dr. Ordoñez for consultation. MD SILVA Pham/HAILEY /7:17 PM /8:13 AM
[2017-03-25] MEDS: SODIUM CHLORIDE 0.9% FLUSH 10 ML FLUSH IV FLUSH SCH ×2 (09:00→21:00)
[2017-03-25] MEDS: SODIUM CHLOR 0.9% 1000 ML INJ 1,000 ML IV SCH ×2 (09:45→21:18)
[2017-03-25] MEDS: DOCUSATE SODIUM 50 MG/SENNA 8.6 MG TAB PO SCH ×2 (10:19→21:10)
[2017-03-25] MEDS: METOPROLOL SUCCINATE 50 MG EXTENDED RELEASE TAB PO SCH (10:19)
[2017-03-25] MEDS: amLODIPine BESYLATE 5 MG TAB PO SCH (10:19)
--- NOTE | 2017-03-25 12:22 | HHI.PR ---
Subjective Remarks Follow-up lung mass. Patient agrees with lung biopsy as well as her sister. She has significant cognitive deficits and needs supervision after discharge. We'll consult case management. Discussed with RN Objective Vitals Vital Signs Date Time Temp Pulse Resp B/P Pulse Ox O2 Delivery O2 Flow Rate FiO2 03/25/17 08:00 98.5 75 20 121/60 95 03/25/17 05:30 98.0 76 16 153/72 96 03/24/17 23:34 98.5 69 16 150/75 95 03/24/17 20:13 79 03/24/17 19:48 Room Air 03/24/17 19:25 98.6 75 16 151/66 95 03/24/17 16:00 97.3 71 19 105/64 95 I/O 03/24/17 03/24/17 03/24/17 03/25/17 03/25/17 03/25/17 07:00 15:00 23:00 07:00 15:00 23:00 Intake Total 563 ml 240 ml 340 ml 0 ml Output Total 550 ml 500 ml 450 ml 900 ml Balance 13 ml -260 ml -110 ml -900 ml Intake Oral 100 ml 240 ml 340 ml 0 ml IV Total 463 ml Output Urine Total 550 ml 500 ml 450 ml 900 ml # Bowel Movements 0 0 0 Result Diagram: 03/23/17 0526 03/25/17 0550 Imaging Last Impressions Chest CT 03/24/17 0600 Signed Impressions: Service Date/Time: Friday, March 24, 2017 09:06 - CONCLUSION: 1. Cavitary mass in the left lower lobe concern for squamous cell carcinoma versus possible fungal infection. This would be amenable to CT-guided core biopsy. 2. Adjacent pleural thickening and apparent small effusion with subtle adjacent rib destruction. 3. Mediastinal adenopathy. Lázaro Bey MD Brain MRI 03/24/17 0000 Signed Impressions: Service Date/Time: Friday, March 24, 2017 16:18 - CONCLUSION: 1. No evidence of metastatic disease. 2. Mild chronic small vessel ischemic changes. Lázaro Bey MD Ribs X-Ray 03/23/17 0000 Signed Impressions: Service Date/Time: Thursday, March 23, 2017 15:51 - CONCLUSION: 1. Patchy opacity in the left lung base of concern for pneumonia. 2. Ribs are intact and there is no pneumothorax. Lázaro Bey MD Head CT 03/22/17421 Signed Impressions: Service Date/Time: Wednesday, March 22, 2017 04:40 - CONCLUSION: Unremarkable CT scan of the brain. Elijah Gaona MD Chest X-Ray 03/22/17421 Signed Impressions: Service Date/Time: Wednesday, March 22, 2017 04:48 - CONCLUSION: No acute intrathoracic disease. Elijah Gaona MD Objective Remarks GENERAL: Well-developed, well-nourished in no distress on room air SKIN: Warm and dry. HEAD: Atraumatic. Normocephalic. EYES: Pupils equal and round. No scleral icterus. No injection or drainage. ENT: No nasal bleeding or discharge. Mucous membranes pink and moist. NECK: Trachea midline. No JVD. CARDIOVASCULAR: Regular rate and rhythm. RESPIRATORY: No accessory muscle use. Clear to auscultation. Breath sounds equal bilaterally. GASTROINTESTINAL: Abdomen soft, non-tender, nondistended. MUSCULOSKELETAL: Extremities without clubbing, cyanosis, or edema. No obvious deformities. NEUROLOGICAL: Awake and alert. No obvious cranial nerve deficits. Motor grossly within normal limits. Five out of 5 muscle strength in the arms and legs. Normal speech. PSYCHIATRIC: Appropriate mood and affect; insight and judgment normal. A/P Problem List: (1) Acute encephalopathy ICD Code: G93.40 Status: Acute (2) Hypercalcemia ICD Code: E83.52 Status: Acute (3) DELANEY (acute kidney injury) ICD Code: N17.9 Status: Acute (4) HTN (hypertension) ICD Code: I10 Status: Chronic (5) COPD (chronic obstructive pulmonary disease) ICD Code: J44.9 Status: Chronic Assessment and Plan 77 y/o with a history of Breast cancer, COPD, and HTN presented to the ED with confusion after taking baclofen for a few days. Acute Encephalopathy, probably due to adverse reaction to baclofen. Resolved. There may be some underlying very early dementia symptoms based on conversation with her sister. PCP can refer to outpatient neurologist for further neurocognitive testing. Seems to be back at her baseline. -Head CT neg. -UA negative -Parathyroid low Hypercalcemia, likely due to dehydration and patient was taking calcium supplements, improving with IVF. Having rib pain as well. Could be from malignancy -Continue IVF. Consider pamidronate or ZA -Labs in AM DELANEY, likely due to dehydration Creatine 1.22, unknown baseline, patient denies any kidney disease -Cont IVF, repeat labs in am. Improving HTN, chronic -Cont home medications Norvasc and metoprolol -Monitor vitals COPD, chronic -Duonebs PRN Tobacco abuse -Counseled to quit Cavitary mass in the left lower lobe concern for squamous cell carcinoma versus possible fungal infection. This would be amenable to CT-guided core biopsy, IR consulted as well as pulmonary DVT prophylaxis with SCD and early ambulation. Hold pharmacological prophylaxis secondary to procedure Discharge Planning Dc post biopsy Aguila Ordoñez MD Mar 25, 2017 12:22
[2017-03-25] MEDS ORDERED: SENN1TAB PO (12:23)
--- NOTE | 2017-03-25 12:24 | HHI.FF ---
Face to Face Verification Diagnosis: (1) Altered mental status (2) Medication side effect Home Health Nursing Order: Medical education Signs/symptoms of disease process Medication education-adverse effect Nursing assessment with vital signs I have seen patient Deena Brown on 03/25/17. My clinical findings support the need for the requested home health care services because: Ltd mobility - disease progression Med compliance is questionable I certify that my clinical findings support that this patient is homebound because: Unsafe to leave home unassisted Need for psychosocial assistance Aguila Ordoñez MD Mar 25, 2017 12:24
--- NOTE | 2017-03-25 12:24 | HHI.DCPOC ---
Discharge Care Plan Diagnosis: (1) Acute encephalopathy (2) Medication side effect Your Health Problems Are: Difficulty with ADL Exercise Tolerance Goals to Promote Your Health * To prevent worsening of your condition and complications * To maintain your health at the optimal level Directions to Meet Your Goals Take your medications as prescribed Follow your dietary instruction Follow activity as directed Keep your appointments as scheduled Take your immunizations and boosters as scheduled If your symptoms worsen call your PCP, if no PCP go to Urgent Care Center or Emergency Room Smoking is Dangerous to Your Health. Avoid second hand smoke Call the 24-hour hour crisis hotline for domestic abuse at Aguila Ordoñez MD Mar 25, 2017 12:24
[2017-03-25] MEDS ORDERED: LIDOCAINE 1%/EPINEPHrine 1:100,000 SOLN 20 ML VIAL ONE (13:59)
[2017-03-25] MEDS ORDERED: fentaNYL CITRATE 250 MCG/5 ML AMP ONE (14:11)
[2017-03-25] MEDS ORDERED: LORazepam 2 MG/ML VIAL ONE (14:11)
--- NOTE | 2017-03-25 16:34 | RADRPT ---
EXAM DATE/TIME: 03/25/2017 14:57 [place] COMPARISON: CT THORAX W/O CONTRAST, March 24, 2017, 9:06. INDICATIONS : Left lung mass. SEDATION TIME: 30 minutes BIOPSY SITE: Left Lung MEDICATION(S): 1.) 100 mcg fentanyl (Sublimaze) IV 2.) 2 mg lorazepam (Ativan) IV DEVICE(S): 1.) 20 gauge Temno core biopsy needle MEDICAL HISTORY : Hypertension. Chronic obstructive pulmonary disease. Carcinoma, breast. SURGICAL HISTORY : Mastectomy, left. Squamous cell removed from cheek ENCOUNTER: Initial ACUITY: 1 day PAIN SCORE: 0/10 LOCATION: Left chest A total of three core specimen(s) were obtained and sent to the laboratory for pathologic evaluation. PROCEDURE: 1. CT guided Left chest biopsy. Prior to the procedure informed consent was obtained. The patient's prior chest CT was reviewed and a demonstrated a cavitary mass in the left lower lobe. Using automated exposure control and adjustment of the mA and/or kV according to patient size, radiation dose was kept as low as reasonably achievab le to obtain optimal diagnostic quality images. The site was prepped in a sterile fashion. Full sterile technique was used, including cap, mask, andrzej rile gloves and gown and a large sterile sheet. Hand hygiene and 2% chlorhexidine and/or betadine/al cohol prep was utilized per protocol for cutaneous antisepsis. The skin and subcutaneous tissues wer e infiltrated with local anesthetic solution. With CT guidance the cavitary lesion in the left lower lobe was localized. Biopsy was performed using the prescribed needle as above. Adequate hemostasis was obtained with compression at the puncture s ite. Follow-up CT scan reveals no pneumothorax or acute abnormality. Conscious sedation was performed with the prescribed dosages and duration as above in the presence of an independent trained radiology nurse to assist in the monitoring of the patient. EKG and oximetry remained stable throughout the procedure. The patient tolerated the procedure well and there were no complications. The patient was sent to Radiology Outpatient Unit in stable condition. CONCLUSION: Uncomplicated CT guided biopsy of the cavitary mass in the left lower lobe. Dilshad Kaufman MD on March 25, 2017 at 16:22 Board Certified Radiologist. This report was verified electronically.
--- NOTE | 2017-03-25 19:59 | HHI.PR ---
Subjective Remarks 77 YOWF with MONA mass,COPD,Increased calcium Had CT guided lung bx Feels little better Objective Vital Signs Vital Signs Date Time Temp Pulse Resp B/P Pulse Ox O2 Delivery O2 Flow Rate FiO2 03/25/17 16:00 97.9 70 20 151/70 96 03/25/17 12:00 98.1 64 20 148/66 95 03/25/17 09:00 69 03/25/17 08:00 98.5 75 20 121/60 95 03/25/17 08:00 Room Air 03/25/17 05:30 98.0 76 16 153/72 96 03/24/17 23:34 98.5 69 16 150/75 95 03/24/17 20:13 79 I/O 03/24/17 03/24/17 03/24/17 03/25/17 03/25/17 03/25/17 07:00 15:00 23:00 07:00 15:00 23:00 Intake Total 563 ml 240 ml 340 ml 0 ml Output Total 550 ml 500 ml 450 ml 900 ml Balance 13 ml -260 ml -110 ml -900 ml Intake Oral 100 ml 240 ml 340 ml 0 ml IV Total 463 ml Output Urine Total 550 ml 500 ml 450 ml 900 ml # Voids 3 # Bowel Movements 0 0 0 Result Diagram: 03/23/17 0526 03/25/17 0550 Objective Remarks GENERAL: MBMN WF,NAD SKIN: Warm and dry. HEAD: Normocephalic. EYES: No scleral icterus. No injection or drainage. NECK: Supple, trachea midline. No JVD or lymphadenopathy. CARDIOVASCULAR: Regular rate and rhythm without murmurs, gallops, or rubs. RESPIRATORY: Breath sounds equal bilaterally. No accessory muscle use. GASTROINTESTINAL: Abdomen soft, non-tender, nondistended. MUSCULOSKELETAL: No cyanosis, or edema. BACK: Nontender without obvious deformity. No CVA tenderness. A/P Assessment and Plan MONA Mass, likly malig COPD Hypercalcemia Pleural effusion, small nicotine use PLAN: IV Fluid monitor calcium level Check bx PFT Smoking cessation. Eugene Augustin MD Mar 25, 2017 19:59
[2017-03-26 06:05] VITALS: BP 147/68; PULSE 68; RESP 16; TEMP 99; O2SAT 95
[2017-03-26 08:00] VITALS: BP 119/60; PULSE 72; RESP 16; TEMP 98.8; O2SAT 95
[2017-03-26 08:20] VITALS: PULSE 80
[2017-03-26 08:55] LABS: BICARBONATE 27.7 MEQ/L (21.0-32.0); POTASSIUM 3.7 MEQ/L (3.5-5.1)
[2017-03-26] MEDS ORDERED: MORPHINE SULFATE 4 MG/ML INJ IV PRN (09:00)
[2017-03-26] MEDS: SODIUM CHLORIDE 0.9% FLUSH 10 ML FLUSH IV FLUSH SCH ×2 (09:00→20:22)
[2017-03-26] MEDS: DOCUSATE SODIUM 50 MG/SENNA 8.6 MG TAB PO SCH ×2 (10:26→20:20)
[2017-03-26] MEDS: amLODIPine BESYLATE 5 MG TAB PO SCH (10:26)
[2017-03-26] MEDS: METOPROLOL SUCCINATE 50 MG EXTENDED RELEASE TAB PO SCH (10:26)
--- NOTE | 2017-03-26 10:47 | HHI.PR ---
Subjective Remarks Follow-up lung mass. Complained of low back pain relieved with pain pill. She wants to go home. Speech therapist states she has cognitive deficits and needs supervision. Patient states she has friends who can help her. Discussed with case management, refused SNF. Discussed with pulmonary, he wants confusion improved and treat hypercalcemia before discharge. Objective Vitals Vital Signs Date Time Temp Pulse Resp B/P Pulse Ox O2 Delivery O2 Flow Rate FiO2 03/26/17 08:00 98.8 72 16 119/60 95 03/26/17 06:05 99.0 68 16 147/68 95 03/25/17 23:42 Room Air 03/25/17 23:42 98.4 72 16 139/65 95 03/25/17 21:18 98.1 69 16 132/61 95 03/25/17 21:18 Room Air 03/25/17 20:35 77 03/25/17 16:00 97.9 70 20 151/70 96 03/25/17 12:00 98.1 64 20 148/66 95 I/O 03/25/17 03/25/17 03/25/17 03/26/17 03/26/17 03/26/17 07:00 15:00 23:00 07:00 15:00 23:00 Intake Total 0 ml 178 ml 629 ml Output Total 900 ml 500 ml 100 ml Balance -900 ml -322 ml 529 ml Intake Oral 0 ml 0 ml 120 ml IV Total 178 ml 509 ml Output Urine Total 900 ml 500 ml 100 ml # Voids 3 # Bowel Movements 0 0 0 Result Diagram: 03/23/17 0526 03/26/17 0805 Imaging Last Impressions Lung Biopsy CT 03/25/17 0000 Signed Impressions: Service Date/Time: February 14:57 - CONCLUSION: Uncomplicated CT guided biopsy of the cavitary mass in the left lower lobe. Dilshad Kaufman MD Chest CT 03/24/17 0600 Signed Impressions: Service Date/Time: Friday, March 24, 2017 09:06 - CONCLUSION: 1. Cavitary mass in the left lower lobe concern for squamous cell carcinoma versus possible fungal infection. This would be amenable to CT-guided core biopsy. 2. Adjacent pleural thickening and apparent small effusion with subtle adjacent rib destruction. 3. Mediastinal adenopathy. Lázaro Bey MD Brain MRI 03/24/17 0000 Signed Impressions: Service Date/Time: Friday, March 24, 2017 16:18 - CONCLUSION: 1. No evidence of metastatic disease. 2. Mild chronic small vessel ischemic changes. Lázaro Bey MD Ribs X-Ray 03/23/17 0000 Signed Impressions: Service Date/Time: Thursday, March 23, 2017 15:51 - CONCLUSION: 1. Patchy opacity in the left lung base of concern for pneumonia. 2. Ribs are intact and there is no pneumothorax. Lázaro Bey MD Head CT 03/22/17421 Signed Impressions: Service Date/Time: Wednesday, March 22, 2017 04:40 - CONCLUSION: Unremarkable CT scan of the brain. Elijah Gaona MD Chest X-Ray 03/22/17421 Signed Impressions: Service Date/Time: Wednesday, March 22, 2017 04:48 - CONCLUSION: No acute intrathoracic disease. Elijah Gaona MD Objective Remarks GENERAL: Well-developed, well-nourished in no distress on room air SKIN: Warm and dry. HEAD: Atraumatic. Normocephalic. EYES: Pupils equal and round. No scleral icterus. No injection or drainage. ENT: No nasal bleeding or discharge. Mucous membranes pink and moist. NECK: Trachea midline. No JVD. CARDIOVASCULAR: Regular rate and rhythm. RESPIRATORY: No accessory muscle use. Clear to auscultation. Breath sounds equal bilaterally. GASTROINTESTINAL: Abdomen soft, non-tender, nondistended. MUSCULOSKELETAL: Extremities without clubbing, cyanosis, or edema. No obvious deformities. NEUROLOGICAL: Awake and alert. No obvious cranial nerve deficits. Motor grossly within normal limits. Five out of 5 muscle strength in the arms and legs. Normal speech. Nonfocal PSYCHIATRIC: Appropriate mood and affect; insight and judgment normal. Procedures CT-guided biopsy of the lung mass A/P Problem List: (1) Acute encephalopathy ICD Code: G93.40 Status: Acute (2) Hypercalcemia ICD Code: E83.52 Status: Acute (3) DELANEY (acute kidney injury) ICD Code: N17.9 Status: Acute (4) HTN (hypertension) ICD Code: I10 Status: Chronic (5) COPD (chronic obstructive pulmonary disease) ICD Code: J44.9 Status: Chronic Assessment and Plan 77 y/o with a history of Breast cancer, COPD, and HTN presented to the ED with confusion after taking baclofen for a few days. Acute Encephalopathy, probably due to adverse reaction to baclofen. Resolved. There may be some underlying very early dementia symptoms based on conversation with her sister. PCP can refer to outpatient neurologist for further neurocognitive testing. Seems to be back at her baseline. -Head CT neg. -UA negative -Parathyroid low Hypercalcemia, likely due to dehydration and patient was taking calcium supplements, improving with IVF. Having rib pain as well. Could be from malignancy -Continue IVF. ZA IV 1 -Labs in AM DELANEY, likely due to dehydration Creatine 1.22, unknown baseline, patient denies any kidney disease -Cont IVF, repeat labs in am. Improving HTN, chronic -Cont home medications Norvasc and metoprolol -Monitor vitals COPD, chronic -Duonebs PRN Tobacco abuse -Counseled to quit Cavitary mass in the left lower lobe concern for squamous cell carcinoma versus possible fungal infection. Status post CT-guided core biopsy, cultures negative to date. Follow-up pathology DVT prophylaxis with SCD and early ambulation. Discharge Planning Possible dc in am if calcium level and confusion improved Aguila Ordoñez MD Mar 26, 2017 10:47
[2017-03-26] MEDS ORDERED: ULTR50TA5 PO (11:37)
[2017-03-26 12:00] VITALS: BP 138/66; PULSE 76; RESP 16; TEMP 98.3; O2SAT 99
[2017-03-26] MEDS ORDERED: ZOLEDRONIC ACID IV ONE (13:00)
[2017-03-26] MEDS ORDERED: SODIUM CHLOR 0.9% IV ONE (13:00)
[2017-03-26 16:00] VITALS: BP 114/56; PULSE 68; RESP 18; TEMP 99.1; O2SAT 96
--- NOTE | 2017-03-26 18:58 | HHI.PR ---
Subjective Remarks 77 YOWF with MONA mass,COPD,Increased calcium Had CT guided lung bx Feels little better BX pending DW pt and daughter in law Anxious to go home Objective Vital Signs Vital Signs Date Time Temp Pulse Resp B/P Pulse Ox O2 Delivery O2 Flow Rate FiO2 03/26/17 16:00 99.1 68 18 114/56 96 03/26/17 12:00 98.3 76 16 138/66 99 03/26/17 08:20 80 03/26/17 08:00 98.8 72 16 119/60 95 03/26/17 08:00 Room Air 03/26/17 06:05 99.0 68 16 147/68 95 03/25/17 23:42 Room Air 03/25/17 23:42 98.4 72 16 139/65 95 03/25/17 21:18 98.1 69 16 132/61 95 03/25/17 21:18 Room Air 03/25/17 20:35 77 I/O 03/25/17 03/25/17 03/25/17 03/26/17 03/26/17 03/26/17 07:00 15:00 23:00 07:00 15:00 23:00 Intake Total 0 ml 178 ml 629 ml Output Total 900 ml 500 ml 100 ml Balance -900 ml -322 ml 529 ml Intake Oral 0 ml 0 ml 120 ml IV Total 178 ml 509 ml Output Urine Total 900 ml 500 ml 100 ml # Voids 3 # Bowel Movements 0 0 0 Result Diagram: 03/23/17 0526 03/26/17 0805 Objective Remarks GENERAL: MBMN WF,NAD SKIN: Warm and dry. HEAD: Normocephalic. EYES: No scleral icterus. No injection or drainage. NECK: Supple, trachea midline. No JVD or lymphadenopathy. CARDIOVASCULAR: Regular rate and rhythm without murmurs, gallops, or rubs. RESPIRATORY: Breath sounds equal bilaterally. No accessory muscle use. GASTROINTESTINAL: Abdomen soft, non-tender, nondistended. MUSCULOSKELETAL: No cyanosis, or edema. BACK: Nontender without obvious deformity. No CVA tenderness. A/P Assessment and Plan MONA Mass, likly malig COPD Hypercalcemia Pleural effusion, small nicotine use PLAN: IV Fluid monitor calcium level Check bx PFT Smoking cessation. Bx still pending DC plans for home if calcium level trending down Eugene Augustin MD Mar 26, 2017 18:58
[2017-03-26 20:00] VITALS: BP 150/59; PULSE 69; RESP 18; TEMP 98.2; O2SAT 97
[2017-03-26] MEDS: SODIUM CHLOR 0.9% 1000 ML INJ 1,000 ML IV SCH (20:20)
[2017-03-27] VITALS (9 sets, daily range): BP systolic 97–150; BP diastolic 54–67; PULSE 57–81; RESP 12–20; TEMP 98–98.8; O2SAT 90–95
[2017-03-27] MEDS: SODIUM CHLORIDE 0.9% FLUSH 10 ML FLUSH IV FLUSH SCH ×2 (09:00→21:00)
[2017-03-27] MEDS: amLODIPine BESYLATE 5 MG TAB PO SCH (09:26)
[2017-03-27] MEDS: METOPROLOL SUCCINATE 50 MG EXTENDED RELEASE TAB PO SCH (09:26)
[2017-03-27] MEDS: DOCUSATE SODIUM 50 MG/SENNA 8.6 MG TAB PO SCH ×2 (09:27→21:27)
[2017-03-27] MEDS: traMADol HCL 50 MG TAB PO PRN ×2 (09:33→14:24)
[2017-03-27 11:11] LABS: BICARBONATE 26.6 MEQ/L (21.0-32.0); MAGNESIUM 1.9 MG/DL (1.5-2.5); POTASSIUM 3.4 MEQ/L (3.5-5.1)
[2017-03-27 11:36] LABS: CALCIUM-PROTEIN CORRECTED 12.2 MG/DL (8.5-10.1)
[2017-03-27] MEDS: SODIUM CHLOR 0.9% 1000 ML INJ 1,000 ML IV SCH (11:43)
--- NOTE | 2017-03-27 16:31 | HHI.PR ---
Subjective Remarks No acute events overnight. Vital signs remained stable. Patient's daughter is at bedside and states that her mother is much more clear today. Patient denies any confusion or discomfort. Protein corrected calcium is 12.2. Objective Vitals Vital Signs Date Time Temp Pulse Resp B/P Pulse Ox O2 Delivery O2 Flow Rate FiO2 03/27/17 12:00 98.1 71 16 135/63 94 03/27/17 10:23 77 03/27/17 09:30 Room Air 03/27/17 08:00 98.4 75 12 140/63 95 03/27/17 04:00 98.5 81 20 150/67 95 03/27/17 00:00 98.8 61 20 132/63 94 03/26/17 20:00 98.2 69 18 150/59 97 03/26/17 20:00 Room Air I/O 03/26/17 03/26/17 03/26/17 03/27/17 03/27/17 03/27/17 07:00 15:00 23:00 07:00 15:00 23:00 Intake Total 629 ml 120 ml 240 ml Output Total 100 ml 400 ml Balance 529 ml 120 ml -160 ml Intake Oral 120 ml 120 ml 240 ml IV Total 509 ml Output Urine Total 100 ml 400 ml # Voids 1 1 # Bowel Movements 0 0 0 Result Diagram: 03/23/17 0526 03/27/17 0857 Objective Remarks GEN: Well-developed, well-nourished patient. No acute distress. CV: Regular rate and rhythm without obvious murmurs LUNGS: Clear to auscultation bilaterally. Normal respiratory effort. No wheezes , rales, rhonchi. GI: Soft, nontender, nondistended. No palpable masses. Bowel sounds WNL. EXT: No edema. NEURO/PSYCH: Afocal. Awake, alert, and oriented x3. Appropriate insight and judgment. Procedures CT-guided biopsy of the lung mass A/P Problem List: (1) Acute encephalopathy ICD Code: G93.40 Status: Resolved (2) Hypercalcemia ICD Code: E83.52 Status: Acute (3) DELANEY (acute kidney injury) ICD Code: N17.9 Status: Acute (4) HTN (hypertension) ICD Code: I10 Status: Chronic (5) COPD (chronic obstructive pulmonary disease) ICD Code: J44.9 Status: Chronic Assessment and Plan 77 y/o with a history of Breast cancer, COPD, and HTN presented to the ED with confusion after taking baclofen, found to have hypercalcemia #) Acute Encephalopathy, probably due to combination of adverse medication reaction and hypercalcemia. Resolved. There may be some underlying very early dementia symptoms based on conversation with her sister. PCP can refer to outpatient neurologist for further neurocognitive testing. Seems to be back at her baseline. -Head CT neg. -UA negative -Parathyroid low #) Hypercalcemia: Prot Corrected Ca stable at 12.2. Patient otherwise asymptomatic. PTH low 6.0. Concern for possible lung malignancy. - Lung biopsy pending - Check PTHrP and Vit D in AM - Repeat Ca++ in aAM - Continue IVF. - s/p ZA IV 1 DELANEY, likely due to dehydration Creatine 1.22, unknown baseline, patient denies any kidney disease -Cont IVF, repeat labs in am. Improving HTN, chronic -Cont home medications Norvasc and metoprolol -Monitor vitals COPD, chronic -Duonebs PRN Tobacco abuse -Counseled to quit Cavitary mass in the left lower lobe concern for squamous cell carcinoma versus possible fungal infection. Pt has known hx of lung cancer s/p removal of 6 nodes (no radiation or chemo) No status post CT-guided core biopsy, cultures negative to date. - Follow-up pathology DVT prophylaxis with SCD and early ambulation. Discharge Planning Anticipate discharge to home tomorrow pending stabilization/trending down of Ca Pranay Bennett MD R3 Mar 27, 2017 16:31
--- NOTE | 2017-03-27 18:17 | HHI.PR ---
Subjective Remarks 77 YOWF with MONA mass,COPD,Increased calcium Had CT guided lung bx Feels little better BX pending DW pt and daughter in law Calcium increased further Objective Vital Signs Vital Signs Date Time Temp Pulse Resp B/P Pulse Ox O2 Delivery O2 Flow Rate FiO2 03/27/17 16:00 98.1 70 16 97/63 90 03/27/17 12:00 98.1 71 16 135/63 94 03/27/17 10:23 77 03/27/17 09:30 Room Air 03/27/17 08:00 98.4 75 12 140/63 95 03/27/17 04:00 98.5 81 20 150/67 95 03/27/17 00:00 98.8 61 20 132/63 94 03/26/17 20:00 98.2 69 18 150/59 97 03/26/17 20:00 Room Air I/O 03/26/17 03/26/17 03/26/17 03/27/17 03/27/17 03/27/17 07:00 15:00 23:00 07:00 15:00 23:00 Intake Total 629 ml 120 ml 240 ml 240 ml Output Total 100 ml 400 ml Balance 529 ml 120 ml -160 ml 240 ml Intake Oral 120 ml 120 ml 240 ml 240 ml IV Total 509 ml Output Urine Total 100 ml 400 ml # Voids 1 1 # Bowel Movements 0 0 0 0 Result Diagram: 03/23/17 0526 03/27/17 0857 Objective Remarks GENERAL: MBMN WF,NAD SKIN: Warm and dry. HEAD: Normocephalic. EYES: No scleral icterus. No injection or drainage. NECK: Supple, trachea midline. No JVD or lymphadenopathy. CARDIOVASCULAR: Regular rate and rhythm without murmurs, gallops, or rubs. RESPIRATORY: Breath sounds equal bilaterally. No accessory muscle use. GASTROINTESTINAL: Abdomen soft, non-tender, nondistended. MUSCULOSKELETAL: No cyanosis, or edema. BACK: Nontender without obvious deformity. No CVA tenderness. A/P Assessment and Plan MONA Mass, likly malig COPD Hypercalcemia Pleural effusion, small nicotine use PLAN: IV Fluid monitor calcium level per Primary team Check bx PFT Smoking cessation. Bx still pending Eugene Augustin MD Mar 27, 2017 18:17
[2017-03-27] MEDS: DOCUSATE SODIUM 100 MG CAP PO PRN (21:37)
[2017-03-28] VITALS (9 sets, daily range): BP systolic 113–143; BP diastolic 57–71; PULSE 63–98; RESP 18–20; TEMP 98.2–99.2; O2SAT 91–97
[2017-03-28] MEDS: SODIUM CHLOR 0.9% 1000 ML INJ 1,000 ML IV SCH (05:44)
--- NOTE | 2017-03-28 09:14 | HHI.PR ---
Subjective Remarks Overnight, patient's granddaughter reports she appeared quite short of breath while attempting to ambulate. This improved with a breathing treatment. Her vital signs remained stable on room air. Patient is a long-time smoker. Pulse ox has been 91-92%. Patient continues to smoke at home. She was evaluated by physical therapy yesterday and deemed to not require any further physical therapy or assistance with walking. Patient endorses improvement in her overall strength. She has remained afebrile without chest pain or calf pain. Both her and the granddaughter endorse improved mentation. Granddaughter endorses concern regarding her having assistance at home. Home health has previously been ordered. Calcium today is 9.9. Objective Vitals Vital Signs Date Time Temp Pulse Resp B/P Pulse Ox O2 Delivery O2 Flow Rate FiO2 03/28/17 08:00 99.2 64 18 114/71 91 03/28/17 04:00 98.5 68 18 124/58 92 03/28/17 00:00 98.2 63 18 113/57 92 03/27/17 21:43 91 21 03/27/17 21:27 Room Air 03/27/17 20:02 57 03/27/17 20:00 98.0 64 18 103/54 92 03/27/17 16:00 98.1 70 16 97/63 90 03/27/17 12:00 98.1 71 16 135/63 94 03/27/17 10:23 77 03/27/17 09:30 Room Air I/O 03/27/17 03/27/17 03/27/17 03/28/17 03/28/17 03/28/17 07:00 15:00 23:00 07:00 15:00 23:00 Intake Total 240 ml 240 ml 903 ml 672 ml Output Total 400 ml Balance -160 ml 240 ml 903 ml 672 ml Intake Oral 240 ml 240 ml 360 ml 240 ml IV Total 543 ml 432 ml Output Urine Total 400 ml # Voids 1 2 1 # Bowel Movements 0 0 0 0 Result Diagram: 03/27/17 0857 Objective Remarks GEN: Well-developed, well-nourished patient. No acute distress. Ambulating in the room. CV: Regular rate and rhythm without obvious murmurs LUNGS: Clear to auscultation bilaterally. Normal respiratory effort. No wheezes , rales, rhonchi. GI: Soft, nontender, nondistended. No palpable masses. Bowel sounds WNL. EXT: No edema. NEURO/PSYCH: Afocal. Awake, alert, and oriented x3. Appropriate insight and judgment. Procedures CT-guided biopsy of the lung mass A/P Problem List: (1) Acute encephalopathy ICD Code: G93.40 Status: Resolved (2) Hypercalcemia ICD Code: E83.52 Status: Acute (3) DELANEY (acute kidney injury) ICD Code: N17.9 Status: Acute (4) HTN (hypertension) ICD Code: I10 Status: Chronic (5) COPD (chronic obstructive pulmonary disease) ICD Code: J44.9 Status: Chronic Assessment and Plan 77 y/o with a history of Breast cancer, COPD, and HTN presented to the ED with confusion after taking baclofen, found to have hypercalcemia #) Acute Encephalopathy, probably due to combination of adverse medication reaction and hypercalcemia. Resolved. There may be some underlying very early dementia symptoms based on conversation with her sister. PCP can refer to outpatient neurologist for further neurocognitive testing. Seems to be back at her baseline. -Head CT neg. -UA negative -Parathyroid low #) Hypercalcemia: Calcium now improved to 9.9, down from 12.4. Patient otherwise asymptomatic. PTH low 6.0. Concern for possible lung malignancy. - Lung biopsy pending - PTHrP and Vit D pending - Repeat Ca++ in AM - Continue IVF. - s/p ZA IV 1 - Patient may be able to follow-up with pulmonology as an outpatient #) DELANEY, likely due to dehydration, now resolved - Creatine now 0.79 -Cont IVF, and monitoring #) HTN, chronic -Cont home medications Norvasc and metoprolol -Monitor vitals #) COPD, chronic -Duonebs PRN -Will obtain respiratory walk test to further eval #) Tobacco abuse -Counseled to quit #) Flank pain - patient reported single instance of flank pain today 4/30 after exam. - could be due to pain for hypercalcemia, will order U/A to further eval #) Cavitary mass in the left lower lobe concern for squamous cell carcinoma versus possible fungal infection. Pt has known hx of lung cancer s/p removal of 6 nodes (no radiation or chemo) No status post CT-guided core biopsy, cultures negative to date. - Follow-up pathology - Outpatient follow-up with pulmonology (and oncology if biopsy positive for cancer) DVT prophylaxis with SCD and early ambulation. Discharge Planning Anticipate discharge to home tomorrow pending stabilization/trending down of Ca Pranay Bennett MD R3 Mar 28, 2017 09:14
[2017-03-28] MEDS: amLODIPine BESYLATE 5 MG TAB PO SCH (10:32)
[2017-03-28] MEDS: SODIUM CHLORIDE 0.9% FLUSH 10 ML FLUSH IV FLUSH SCH ×2 (10:32→20:23)
[2017-03-28] MEDS: DOCUSATE SODIUM 50 MG/SENNA 8.6 MG TAB PO SCH ×2 (10:32→20:23)
[2017-03-28] MEDS: METOPROLOL SUCCINATE 50 MG EXTENDED RELEASE TAB PO SCH (10:32)
[2017-03-28 10:45] LABS: AUTOMATED NEUTROPHIL # 11.3 TH/MM3 (1.8-7.7); BASOPHIL # 0.1 TH/MM3 (0-0.2); BASOPHIL % 0.8 % (0.0-2.0); EOSINOPHIL # 0.4 TH/MM3 (0-0.4); EOSINOPHIL % 3.1 % (0.0-4.0); HEMATOCRIT 32.5 % (35.0-46.0); HEMO FLAGS DIFF FINAL; LYMPH % 6.6 % (9.0-44.0); LYMPHOCYTE # 0.9 TH/MM3 (1.0-4.8); MEAN CORPUSCULAR HEMOGLOBIN 29.4 PG (27.0-34.0); MEAN CORPUSCULAR HGB CONC 33.4 % (32.0-36.0); MONO % 6.1 % (0.0-8.0); NEUT % 83.4 % (16.0-70.0); PLATELET COUNT 417 TH/MM3 (150-450); RED CELL DISTRIBUTION WIDTH 13.4 % (11.6-17.2); WHITE BLOOD COUNT 13.6 TH/MM3 (4.0-11.0)
[2017-03-28 11:19] LABS: BICARBONATE 26.9 MEQ/L (21.0-32.0); POTASSIUM 3.6 MEQ/L (3.5-5.1)
[2017-03-28] MEDS: traMADol HCL 50 MG TAB PO PRN (13:40)
--- NOTE | 2017-03-28 15:12 | HHI.DS ---
Discharge Summary Admission Date Mar 22, 2017 at 06:15 Admitting Diagnosis AMS, Hypercalcemia (1) Acute encephalopathy Diagnosis: Principal (2) Hypercalcemia Diagnosis: Principal (3) DELANEY (acute kidney injury) Diagnosis: Secondary (4) HTN (hypertension) Diagnosis: Secondary (5) COPD (chronic obstructive pulmonary disease) Diagnosis: Secondary Brief History The patient is a 77 year old female who presents to the [facility] emergency department with a history of reportedly not feeling right since Wednesday. She reports that she was seen by the nurse practitioner at her primary care physician's office on Wednesday related to an exacerbation of low back pain in the left side of her back. She reports that she was newly placed on baclofen. She reports that since then she has intermittently been taking this, however she cannot specify the frequency. She reports that she feels confused. The patient reports that she lives at home alone. The patient is oriented to person, place, however not time, or details regarding the situation. She denies hitting her head or losing consciousness. She denies having any headache or neck pain. She denies having any dysuria, hematuria, urinary urgency, or frequency. The patient denies any recent fevers, cough, congestion, neck pain, chest pain, shortness of breath, abdominal pain, vomiting, diarrhea, one-sided weakness, slurred speech, dizziness, facial droop, difficulty with word finding ability, or vision changes. CBC/BMP: 03/28/17 1000 03/28/17 0951 Significant Findings Laboratory Tests Test 03/26/17 03/27/17 03/28/17 03/28/17 08:05 08:57 09:51 10:00 Estimat Glomerular Filtration 74 ML/MIN (>89) 69 ML/MIN (>89) 71 ML/MIN (>89) Rate Random Glucose 132 MG/DL 145 MG/DL 116 MG/DL (74-106) (74-106) (74-106) Calcium Level 11.5 MG/DL 11.7 MG/DL (8.5-10.1) (8.5-10.1) Potassium Level 3.4 MEQ/L (3.5-5.1) Protein Corrected Calcium 12.2 MG/DL (8.5-10.1) 25-Hydroxy Vitamin D Total 23.7 ng/ML (30-100) White Blood Count 13.6 TH/MM3 (4.0-11.0) Red Blood Count 3.70 MIL/MM3 (4.00-5.30) Hemoglobin 10.8 GM/DL (11.6-15.3) Hematocrit 32.5 % (35.0-46.0) Neutrophils (%) (Auto) 83.4 % (16.0-70.0) Lymphocytes (%) (Auto) 6.6 % (9.0-44.0) Neutrophils # (Auto) 11.3 TH/MM3 (1.8-7.7) Lymphocytes # (Auto) 0.9 TH/MM3 (1.0-4.8) Imaging Last Impressions Lung Biopsy CT 03/25/17 0000 Signed Impressions: Service Date/Time: February 14:57 - CONCLUSION: Uncomplicated CT guided biopsy of the cavitary mass in the left lower lobe. Dilshad Kaufman MD Chest CT 03/24/17 0600 Signed Impressions: Service Date/Time: Friday, March 24, 2017 09:06 - CONCLUSION: 1. Cavitary mass in the left lower lobe concern for squamous cell carcinoma versus possible fungal infection. This would be amenable to CT-guided core biopsy. 2. Adjacent pleural thickening and apparent small effusion with subtle adjacent rib destruction. 3. Mediastinal adenopathy. Lázaro Bey MD Brain MRI 03/24/17 0000 Signed Impressions: Service Date/Time: Friday, March 24, 2017 16:18 - CONCLUSION: 1. No evidence of metastatic disease. 2. Mild chronic small vessel ischemic changes. Lázaro Bey MD Ribs X-Ray 03/23/17 0000 Signed Impressions: Service Date/Time: Thursday, March 23, 2017 15:51 - CONCLUSION: 1. Patchy opacity in the left lung base of concern for pneumonia. 2. Ribs are intact and there is no pneumothorax. Lázaro Bey MD Head CT 03/22/17421 Signed Impressions: Service Date/Time: Wednesday, March 22, 2017 04:40 - CONCLUSION: Unremarkable CT scan of the brain. Elijah Gaona MD Chest X-Ray 03/22/17421 Signed Impressions: Service Date/Time: Wednesday, March 22, 2017 04:48 - CONCLUSION: No acute intrathoracic disease. Elijah Gaona MD PE at Discharge GEN: Well-developed, well-nourished patient. No acute distress. Ambulating in the room. CV: Regular rate and rhythm without obvious murmurs LUNGS: Clear to auscultation bilaterally. Normal respiratory effort. No wheezes , rales, rhonchi. GI: Soft, nontender, nondistended. No palpable masses. Bowel sounds WNL. EXT: No edema. NEURO/PSYCH: Afocal. Awake, alert, and oriented x3. Appropriate insight and judgment. Hospital Course Patient admitted to the hospital due to altered mental status in the setting of possible adverse medication reaction (Baclofen) and subsequently found to have symptomatic hypercalcemia which was also likely contributing. She was started on IV fluids for the hypercalcemia as well as for acute kidney injury. Further evaluation revealed a cavitary lung mass concerning for possible squama cell carcinoma vs fungal infection. She underwent biopsy and pathology results are pending. Throughout her hospital course her calcium level slowly trended down. Her PTH was found to be low. She does have a history of breast cancer. Overall, there is a high clinical suspicion for possible cancer for the etiology of her symptoms. Patient was given a single dose of IV ZA. She was subsequently deemed to reach maximum benefit of her inpatient stay and was discharged to home with plan for close follow-up with pulmonology and her primary care physician. If lung biopsy results are D positive for cancer, recommend further evaluation and treatment recommendations by oncology. Recommend following calcium level as an outpatient. Pt Condition on Discharge: Stable Discharge Disposition: Disch w/ Home Health Serv Discharge Instructions DIET: Follow Instructions for: As Tolerated, No Restrictions Speech Therapy-Diet Recommenda: Regular Activities you can perform: Regular-No Restrictions Follow up Referrals: PCP Follow-up - 2-3 Days Pulmonology - 1 Week Speech Therapy - Next Day New Orders: BASIC METABOLIC PROF - 3-5 Days New Medications: Sennosides-Docusate Sodium (Senna Plus 8.6-50 mg) 1 Tab Tab 2 TAB PO BID Prevent Constipation #60 TAB Tramadol (Ultram) 50 Mg Tab 50 MG PO Q6HR PRN pain #28 TAB Continued Medications: Amlodipine (Amlodipine) 5 Mg Tab 5 MG PO DAILY Blood Pressure Management #30 Ref 0 TAB Metoprolol Succinate ER 24 HR (Metoprolol Succinate ER 24 HR) 50 Mg Tab 50 MG PO DAILY #30 Ref 0 TAB Discontinued Medications: Baclofen (Baclofen) 10 Mg Tab 10 MG PO TID Muscle Spasm Ref 0 TAB Hydrocodone-Acetaminophen (Hydrocodone-Acetaminophen) 5-325 mg Tab 1 TAB PO Q4H PRN PAIN Ref 0 TAB Pranay Bennett MD R3 Mar 28, 2017 15:12
[2017-03-28] MEDS ORDERED: OXYGENTANK NAS.CANULA (16:00)
--- NOTE | 2017-03-28 16:26 | HHI.PR ---
Subjective Remarks 77 YOWF with MONA mass,COPD,Increased calcium Had CT guided lung bx Feels little better BX pending Calcium 9.7 Feels better Objective Vital Signs Vital Signs Date Time Temp Pulse Resp B/P Pulse Ox O2 Delivery O2 Flow Rate FiO2 03/28/17 14:06 4.00 03/28/17 12:00 98.6 98 18 120/58 92 03/28/17 09:40 65 03/28/17 08:00 99.2 64 18 114/71 91 03/28/17 04:00 98.5 68 18 124/58 92 03/28/17 00:00 98.2 63 18 113/57 92 03/27/17 21:43 91 21 03/27/17 21:27 Room Air 03/27/17 20:02 57 03/27/17 20:00 98.0 64 18 103/54 92 I/O 03/27/17 03/27/17 03/27/17 03/28/17 03/28/17 03/28/17 07:00 15:00 23:00 07:00 15:00 23:00 Intake Total 240 ml 240 ml 903 ml 672 ml Output Total 400 ml Balance -160 ml 240 ml 903 ml 672 ml Intake Oral 240 ml 240 ml 360 ml 240 ml IV Total 543 ml 432 ml Output Urine Total 400 ml # Voids 1 2 1 # Bowel Movements 0 0 0 0 Result Diagram: 03/28/17 1000 03/28/17 0951 Objective Remarks GENERAL: MBMN WF,NAD SKIN: Warm and dry. HEAD: Normocephalic. EYES: No scleral icterus. No injection or drainage. NECK: Supple, trachea midline. No JVD or lymphadenopathy. CARDIOVASCULAR: Regular rate and rhythm without murmurs, gallops, or rubs. RESPIRATORY: Breath sounds equal bilaterally. No accessory muscle use. GASTROINTESTINAL: Abdomen soft, non-tender, nondistended. MUSCULOSKELETAL: No cyanosis, or edema. BACK: Nontender without obvious deformity. No CVA tenderness. A/P Assessment and Plan MONA Mass, likly malig COPD Hypercalcemia Pleural effusion, small nicotine use PLAN: IV Fluid monitor calcium level per Primary team Check bx Smoking cessation. Bx still pending Eugene Augustin MD Mar 28, 2017 16:26
[2017-03-28 19:26] LABS: BLOOD, URINE NEG (NEG); GLUCOSE,URINE NEG (NEG); HYALINE CAST, URINE 2 /lpf (RARE); KETONE, URINE TRACE mg/dL (NEG); MUCUS URINE FEW /lpf (OCC); NITRITE,URINE NEG (NEG); SQUAMOUS EPITHELIAL CELL URINE 1 /hpf (0-5); URINE COLOR YELLOW (YELLW/STRAW)
[2017-03-28] MEDS: DOCUSATE SODIUM 100 MG CAP PO PRN (20:23)
[2017-03-29] VITALS (7 sets, daily range): BP systolic 103–146; BP diastolic 52–64; PULSE 64–93; RESP 12–19; TEMP 98.2–99.5; O2SAT 92–96
[2017-03-29] MEDS: traMADol HCL 50 MG TAB PO PRN ×2 (00:01→11:31)
[2017-03-29] MEDS: SODIUM CHLOR 0.9% 1000 ML INJ 1,000 ML IV SCH ×2 (03:09→12:58)
[2017-03-29] MEDS: SODIUM CHLORIDE 0.9% FLUSH 10 ML FLUSH IV FLUSH SCH ×2 (09:37→20:25)
[2017-03-29] MEDS: amLODIPine BESYLATE 5 MG TAB PO SCH (09:38)
[2017-03-29] MEDS: DOCUSATE SODIUM 50 MG/SENNA 8.6 MG TAB PO SCH ×2 (09:38→20:24)
[2017-03-29] MEDS: METOPROLOL SUCCINATE 50 MG EXTENDED RELEASE TAB PO SCH (09:38)
--- NOTE | 2017-03-29 10:46 | RSPPFT ---
DATE OF PROCEDURE: 03/26/17 COMMENTS: Spirometry shows FVC of 1.7 at 68% of predicted, FEV1 of 1.0 at 52%, FEV1/FVC ratio is decreased. Flow is decreased at FEF 25-75. There is a paradoxical response to acutely inhaled bronchodilator treatment. Flow volume loops indicate an obstructive pattern. IMPRESSION: 1. Mildly severe obstructive lung disease. 2. Paradoxical response to bronchodilator treatment.
--- NOTE | 2017-03-29 14:29 | HHI.DS ---
Discharge Summary Admission Date Mar 22, 2017 at 6:15 am Discharge Date: March 29, 2017 Admitting Diagnosis AMS, Hypercalcemia (1) Acute encephalopathy ICD Code: G93.40 Diagnosis: Principal (2) Hypercalcemia ICD Code: E83.52 Diagnosis: Principal (3) DELANEY (acute kidney injury) ICD Code: N17.9 Diagnosis: Secondary (4) HTN (hypertension) ICD Code: I10 Diagnosis: Secondary (5) COPD (chronic obstructive pulmonary disease) ICD Code: J44.9 Diagnosis: Secondary (6) Breast cancer metastasized to lung ICD Code: C50.919 Diagnosis: Principal Procedures CT-guided biopsy of the lung mass Brief History - From Admission 77 y/o female with a history of breast CA s/p mastectomy 2015, HTN, and COPD presented to the ED with confusion. Patient states she went to her PCP on Wednesday with complaints of left flank pain and she was given an RX for Baclofen. She took one pill late Wednesday night and then 3 pills on Wednesday and another 2 on Wednesday she thinks. She felt that she was confused and not thinking correctly so she came into the ED. She is slightly confused as she thinks it is 2013, but she knows the month, place and president. She denies any other complaints. No chest pain, sob, dysuria or nausea. While talking with the patient her sister called and the patient seemed confused about the events for the last few days. She say she has not been eating or drinking well, loss of appetite and has lost 9lbs in 8 days. When told her calcium level was high she states she takes calcium supplements daily with her slimfast. She denies any focal weakness or any other neuro symptoms. CBC/BMP: 03/28/17 1000 03/28/17 0951 Significant Findings Laboratory Tests Test 03/27/17 03/28/17 03/28/17 03/28/17 08:57 09:51 10:00 18:25 Potassium Level 3.4 MEQ/L (3.5-5.1) Estimat Glomerular Filtration 69 ML/MIN (>89) 71 ML/MIN (>89) Rate Random Glucose 145 MG/DL 116 MG/DL (74-106) (74-106) Calcium Level 11.7 MG/DL (8.5-10.1) Protein Corrected Calcium 12.2 MG/DL (8.5-10.1) 25-Hydroxy Vitamin D Total 23.7 ng/ML (30-100) White Blood Count 13.6 TH/MM3 (4.0-11.0) Red Blood Count 3.70 MIL/MM3 (4.00-5.30) Hemoglobin 10.8 GM/DL (11.6-15.3) Hematocrit 32.5 % (35.0-46.0) Neutrophils (%) (Auto) 83.4 % (16.0-70.0) Lymphocytes (%) (Auto) 6.6 % (9.0-44.0) Neutrophils # (Auto) 11.3 TH/MM3 (1.8-7.7) Lymphocytes # (Auto) 0.9 TH/MM3 (1.0-4.8) Urine Ketones TRACE mg/dL (NEG) Urine Leukocyte Esterase SMALL (NEG) Urine WBC 9 /hpf (0-5) Urine Mucus FEW /lpf (OCC) Imaging Last Impressions Lung Biopsy CT 03/25/17 0000 Signed Impressions: Service Date/Time: February 14:57 - CONCLUSION: Uncomplicated CT guided biopsy of the cavitary mass in the left lower lobe. Dilshad Kaufman MD Chest CT 03/24/17 0600 Signed Impressions: Service Date/Time: Friday, March 24, 2017 09:06 - CONCLUSION: 1. Cavitary mass in the left lower lobe concern for squamous cell carcinoma versus possible fungal infection. This would be amenable to CT-guided core biopsy. 2. Adjacent pleural thickening and apparent small effusion with subtle adjacent rib destruction. 3. Mediastinal adenopathy. Lázaro Bey MD Brain MRI 03/24/17 0000 Signed Impressions: Service Date/Time: Friday, March 24, 2017 16:18 - CONCLUSION: 1. No evidence of metastatic disease. 2. Mild chronic small vessel ischemic changes. Lázaro Bey MD Ribs X-Ray 03/23/17 0000 Signed Impressions: Service Date/Time: Thursday, March 23, 2017 15:51 - CONCLUSION: 1. Patchy opacity in the left lung base of concern for pneumonia. 2. Ribs are intact and there is no pneumothorax. Lázaro Bey MD Head CT 03/22/17421 Signed Impressions: Service Date/Time: Wednesday, March 22, 2017 04:40 - CONCLUSION: Unremarkable CT scan of the brain. Elijah Gaona MD Chest X-Ray 03/22/17421 Signed Impressions: Service Date/Time: Wednesday, March 22, 2017 04:48 - CONCLUSION: No acute intrathoracic disease. Elijah Gaona MD PE at Discharge GEN: Well-developed, well-nourished patient. No acute distress. Ambulating in the room. CV: Regular rate and rhythm without obvious murmurs LUNGS: Clear to auscultation bilaterally. Normal respiratory effort. No wheezes , rales, rhonchi. GI: Soft, nontender, nondistended. No palpable masses. Bowel sounds WNL. EXT: No edema. NEURO/PSYCH: Afocal. Awake, alert, and oriented x3. Appropriate insight and judgment. Pt update on day of discharge Patient is doing well. No acute concerns. Wants to go home. Discussed with Dr. Augustin who also agrees with our plan to D/C patient and follow up with him in the office. Patient is advised to get CMP in a few days with her PCP. Hospital Course 77 y/o with a history of Breast cancer, COPD, and HTN presented to the ED with confusion after taking baclofen, found to have hypercalcemia - Cavitary mass in the left lower lobe concern for squamous cell carcinoma versus possible fungal infection. Pt has known hx of lung cancer s/p removal of 6 nodes (no radiation or chemo) No status post CT-guided core biopsy, cultures negative to date. - pathology report became available in the afternoon and pathology is similar to breast cancer pathology. - Oncology evaluated patient and okay for discharge. Patient has metastatic breast cancer to the lung. - Further management in the outpatient setting. - Acute Encephalopathy, probably due to combination of adverse medication reaction and hypercalcemia. Resolved. There may be some underlying very early dementia symptoms based on conversation with her sister. PCP can refer to outpatient neurologist for further neurocognitive testing. Seems to be back at her baseline. -Head CT neg. -UA negative -Parathyroid low - Hypercalcemia: Calcium now improved to 9.9, down from 12.4. Patient otherwise asymptomatic. PTH low 6.0. Concern for possible malignancy. - Lung biopsy showed metastatic breast cancer. - PTHrP and Vit D pending - Continue IVF. - s/p ZA IV 1 - DELANEY, likely due to dehydration, now resolved - Creatine now 0.79 -Cont IVF, and monitoring #) HTN, chronic -Cont home medications Norvasc and metoprolol -Monitor vitals - COPD, chronic -Duonebs PRN -Will obtain respiratory walk test to further eval - Tobacco abuse -Counseled to quit - Flank pain - patient reported single instance of flank pain today 03/28 after exam. - could be due to pain for hypercalcemia, will order U/A to further eval Pt Condition on Discharge: Stable Discharge Disposition: Disch w/ Home Health Serv Discharge Time: <= 30 minutes Discharge Instructions DIET: Follow Instructions for: Heart Healthy Diet Speech Therapy-Diet Recommends: Regular Activities you can perform: Regular-No Restrictions Follow up Referrals: PCP Follow-up - 2-3 Days Pulmonology - 1 Week SNF/NURSING HOME/ with [facility] Speech Therapy - Next Day New Medications: Oxygen tank (Oxygen tank) 1 Ea Tank 2 LITER CONSTANTINO.CANULA CONTINUOUS Oxygen Concentrator Portable Gaseous 2 L/min via Nasal Cannula Continuous For 99 months HYPOXEMIA PREVENTION #2 CYLINDER Sennosides-Docusate Sodium (Senna Plus 8.6-50 mg) 1 Tab Tab 2 TAB PO BID Prevent Constipation #60 TAB Tramadol (Ultram) 50 Mg Tab 50 MG PO Q6HR PRN pain #28 TAB Continued Medications: Amlodipine (Amlodipine) 5 Mg Tab 5 MG PO DAILY Blood Pressure Management #30 Ref 0 TAB Metoprolol Succinate ER 24 HR (Metoprolol Succinate ER 24 HR) 50 Mg Tab 50 MG PO DAILY #30 Ref 0 TAB Discontinued Medications: Baclofen (Baclofen) 10 Mg Tab 10 MG PO TID Muscle Spasm Ref 0 TAB Hydrocodone-Acetaminophen (Hydrocodone-Acetaminophen) 5-325 mg Tab 1 TAB PO Q4H PRN PAIN Ref 0 TAB Lesli Sterling DO March 29, 2017 14:29
--- NOTE | 2017-03-29 15:05 | HHI.PR ---
Subjective Remarks 77 YOWF with MONA mass,COPD,Increased calcium Had CT guided lung bx Feels little better Bx Showes Adenocarcinoma Objective Vital Signs Vital Signs Date Time Temp Pulse Resp B/P Pulse Ox O2 Delivery O2 Flow Rate FiO2 03/29/17 12:57 16 03/29/17 12:49 3.00 03/29/17 12:00 98.3 64 12 115/58 94 03/29/17 09:35 Room Air 03/29/17 08:00 98.5 73 12 115/56 92 03/29/17 08:00 69 03/29/17 06:00 98.2 77 18 103/52 94 03/29/17 03:31 Room Air 03/29/17 00:00 Room Air 03/29/17 00:00 99.5 93 19 121/64 95 03/28/17 20:48 Room Air 03/28/17 20:05 70 03/28/17 20:00 98.5 66 20 143/64 94 03/28/17 18:46 97 Nasal Cannula 3.00 03/28/17 16:00 98.4 68 18 141/66 96 I/O 03/28/17 03/28/17 03/28/17 03/29/17 03/29/17 03/29/17 07:00 15:00 23:00 07:00 15:00 23:00 Intake Total 672 ml 480 ml 557 ml 434 ml Output Total 400 ml Balance 672 ml 80 ml 557 ml 434 ml Intake Oral 240 ml 480 ml IV Total 432 ml 557 ml 434 ml Output Urine Total 400 ml # Voids 1 # Bowel Movements 0 0 Result Diagram: 03/28/17 1000 03/28/17 0951 Objective Remarks GENERAL: MBMN WF,NAD SKIN: Warm and dry. HEAD: Normocephalic. EYES: No scleral icterus. No injection or drainage. NECK: Supple, trachea midline. No JVD or lymphadenopathy. CARDIOVASCULAR: Regular rate and rhythm without murmurs, gallops, or rubs. RESPIRATORY: Breath sounds equal bilaterally. No accessory muscle use. GASTROINTESTINAL: Abdomen soft, non-tender, nondistended. MUSCULOSKELETAL: No cyanosis, or edema. BACK: Nontender without obvious deformity. No CVA tenderness. A/P Assessment and Plan MONA Mass, Adenocarcinoma, prob from breast ( has h/o breast ca) COPD Hypercalcemia Pleural effusion, small nicotine use PLAN: IV Fluid monitor calcium level per Primary team Check bx Smoking cessation. DW pt and sister at BS Agrees to saty and see Oncologist Eugene Meyer MD March 29, 2017 15:05 Eugene Augustin MD March 29, 2017 15:05
[2017-03-29] MEDS ORDERED: TEMAZEPAM 7.5 MG CAP PO ONE (21:15)
[2017-03-30 05:10] VITALS: BP 129/60; PULSE 77; RESP 16; TEMP 97.7; O2SAT 95
[2017-03-30] MEDS: traMADol HCL 50 MG TAB PO PRN ×2 (05:47→12:51)
[2017-03-30 08:00] VITALS: BP 135/62; PULSE 58; RESP 18; TEMP 97.9; O2SAT 94
[2017-03-30] MEDS: amLODIPine BESYLATE 5 MG TAB PO SCH (08:48)
[2017-03-30] MEDS: DOCUSATE SODIUM 50 MG/SENNA 8.6 MG TAB PO SCH (08:48)
[2017-03-30] MEDS: METOPROLOL SUCCINATE 50 MG EXTENDED RELEASE TAB PO SCH (08:48)
[2017-03-30] MEDS: SODIUM CHLORIDE 0.9% FLUSH 10 ML FLUSH IV FLUSH SCH (08:48)
[2017-03-30] MEDS: SODIUM CHLOR 0.9% 1000 ML INJ 1,000 ML IV SCH (08:50)
--- NOTE | 2017-03-30 11:21 | HHI.PR ---
Subjective Remarks Late entry for 03/29/2017. Discharge yesterday was cancelled due to new pathology report. Follow up for hypercalcemia, lung mass in a patient with a history of breast cancer. Patient is currently doing well. No fever or chills. Wants to go home. Objective Vitals Vital Signs Date Time Temp Pulse Resp B/P Pulse Ox O2 Delivery O2 Flow Rate FiO2 03/30/17 08:00 97.9 58 18 135/62 94 03/30/17 05:10 Room Air 03/30/17 05:10 97.7 77 16 129/60 95 03/29/17 23:17 98.6 64 16 126/59 96 03/29/17 23:17 Room Air 03/29/17 21:35 99.4 82 18 146/64 94 03/29/17 21:35 Room Air 03/29/17 21:06 88 03/29/17 12:57 16 03/29/17 12:49 3.00 03/29/17 12:00 98.3 64 12 115/58 94 I/O 03/29/17 03/29/17 03/29/17 03/30/17 03/30/17 03/30/17 07:00 15:00 23:00 07:00 15:00 23:00 Intake Total 557 ml 434 ml 1632 ml 590 ml Output Total 300 ml 800 ml Balance 557 ml 434 ml 1332 ml -210 ml Intake Oral 1354 ml 120 ml IV Total 557 ml 434 ml 278 ml 470 ml Output Urine Total 300 ml 800 ml # Bowel Movements 1 0 Result Diagram: 03/28/17 1000 03/28/17 0951 Imaging Last Impressions Lung Biopsy CT 03/25/17 0000 Signed Impressions: Service Date/Time: February 14:57 - CONCLUSION: Uncomplicated CT guided biopsy of the cavitary mass in the left lower lobe. Dilshad Kaufman MD Chest CT 03/24/17 0600 Signed Impressions: Service Date/Time: Friday, March 24, 2017 09:06 - CONCLUSION: 1. Cavitary mass in the left lower lobe concern for squamous cell carcinoma versus possible fungal infection. This would be amenable to CT-guided core biopsy. 2. Adjacent pleural thickening and apparent small effusion with subtle adjacent rib destruction. 3. Mediastinal adenopathy. Lázaro Bey MD Brain MRI 4/26/17 0000 Signed Impressions: Service Date/Time: Friday, March 24, 2017 16:18 - CONCLUSION: 1. No evidence of metastatic disease. 2. Mild chronic small vessel ischemic changes. Lázaro Bey MD Ribs X-Ray 03/23/17 0000 Signed Impressions: Service Date/Time: Thursday, March 23, 2017 15:51 - CONCLUSION: 1. Patchy opacity in the left lung base of concern for pneumonia. 2. Ribs are intact and there is no pneumothorax. Lázaro Bey MD Head CT 03/22/17421 Signed Impressions: Service Date/Time: Wednesday, March 22, 2017 04:40 - CONCLUSION: Unremarkable CT scan of the brain. Elijah Gaona MD Chest X-Ray 03/22/172 Signed Impressions: Service Date/Time: Wednesday, March 22, 2017 04:48 - CONCLUSION: No acute intrathoracic disease. Elijah Gaona MD Objective Remarks GENERAL: Alert, oriented 3, NAD. SKIN: Warm and dry. HEAD: Normocephalic. EYES: No scleral icterus. No injection or drainage. NECK: Supple, trachea midline. No JVD or lymphadenopathy. CARDIOVASCULAR: Regular rate and rhythm without murmurs, gallops, or rubs. RESPIRATORY: Breath sounds equal bilaterally. No accessory muscle use. GASTROINTESTINAL: Abdomen soft, non-tender, nondistended. MUSCULOSKELETAL: No cyanosis, or edema. BACK: Nontender without obvious deformity. No CVA tenderness. Procedures CT-guided biopsy of the lung mass A/P Problem List: (1) Acute encephalopathy ICD Code: G93.40 Status: Resolved (2) Hypercalcemia ICD Code: E83.52 Status: Acute (3) DELANEY (acute kidney injury) ICD Code: N17.9 Status: Acute (4) HTN (hypertension) ICD Code: I10 Status: Chronic (5) COPD (chronic obstructive pulmonary disease) ICD Code: J44.9 Status: Chronic Assessment and Plan 77 y/o with a history of Breast cancer, COPD, and HTN presented to the ED with confusion after taking baclofen, found to have hypercalcemia #) Acute Encephalopathy, probably due to combination of adverse medication reaction and hypercalcemia. Resolved. There may be some underlying very early dementia symptoms based on conversation with her sister. PCP can refer to outpatient neurologist for further neurocognitive testing. Seems to be back at her baseline. -Head CT neg. -UA negative -Parathyroid low #) Hypercalcemia: Calcium now improved to 9.9, down from 12.4. Patient otherwise asymptomatic. PTH low 6.0. Concern for possible malignancy. - Lung biopsy pending - PTHrP and Vit D pending - Continue IVF. - s/p ZA IV 1 #) DELANEY, likely due to dehydration, now resolved - Creatine now 0.79 -Cont IVF, and monitoring #) HTN, chronic -Cont home medications Norvasc and metoprolol -Monitor vitals #) COPD, chronic -Duonebs PRN -Will obtain respiratory walk test to further eval #) Tobacco abuse -Counseled to quit #) Flank pain - patient reported single instance of flank pain today 03/28 after exam. - could be due to pain for hypercalcemia, will order U/A to further eval #) Cavitary mass in the left lower lobe concern for squamous cell carcinoma versus possible fungal infection. Pt has known hx of lung cancer s/p removal of 6 nodes (no radiation or chemo) No status post CT-guided core biopsy, cultures negative to date. - pathology report became available in the afternoon and pathology is similar to breast cancer pathology. - Discussed with Dr. Augustin. We will wait for Oncology to see patient after which patient can be discharged. - Cancel discharge for 03/29/2017. DVT prophylaxis with SCD and early ambulation. Lesli Sterling DO March 30, 2017 11:21
[2017-03-30 12:00] VITALS: BP 123/56; PULSE 66; RESP 18; TEMP 97.9; O2SAT 97
[2017-03-30 13:17] LABS: BICARBONATE 26.4 MEQ/L (21.0-32.0); POTASSIUM 3.3 MEQ/L (3.5-5.1)
[2017-03-30 16:00] VITALS: BP 118/57; PULSE 62; RESP 18; TEMP 97.9; O2SAT 96
--- NOTE | 2017-03-30 22:58 | MB ---
cc: MAIDA DURAN DATE OF CONSULTATION 03/30/17 DATE OF 1940. REASON FOR CONSULTATION Patient with a history of breast cancer who is now diagnosed with metastatic disease. CHIEF COMPLAINT The patient presented with left flank pain. HISTORY OF PRESENT ILLNESS This is a 77-year-old female with a history of breast cancer who has undergone mastectomy. This was invasive breast cancer. She underwent mastectomy and sentinel lymph node biopsy. The tumor size was 1 cm. Lymph nodes were not involved. This was an ER, UT positive, her/2 negative tumor. The patient did not receive any adjuvant radiation treatments. She never saw a medical oncologist and has not been on hormonal blockade therapy. She presented to the emergency department with complaints of left flank pain. She was originally given a prescription for baclofen by her primary care physician. Subsequently, she felt confused and she presented to the emergency department. She has been losing weight. She was found to be hypercalcemic. In the emergency room, she had a chest x-ray which did not show any intrathoracic disease. She also had a CT of the head which was unremarkable. She eventually had a CT of the chest which showed a cavitary mass in the left lower lobe concerning for cancer versus infection. The patient subsequently underwent a CT-guided lung biopsy which proved to be metastatic adenocarcinoma consistent with breast primary. Oncology has been consulted to make further recommendations. REVIEW OF SYSTEMS A comprehensive 14-point review of systems was completed which was negative except as described in HPI. PAST MEDICAL HISTORY 1. History of breast cancer, 2. Hypertension. 3. COPD, 4. Tobacco abuse. PAST SURGICAL HISTORY 1. Left mastectomy 2. 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 She is retired. She used to work in the airline industry. She continues to smoke. She rarely drinks alcohol. FAMILY HISTORY Significant for breast cancer. MEDICATIONS Reviewed in the EMR ALLERGIES NO KNOWN DRUG ALLERGIES. PHYSICAL EXAMINATION VITAL SIGNS: Blood pressure is 118/57, pulse is in the 60s, temperature is 97.9, O2 sats are 96% on room air. GENERAL: Well-developed, well-nourished female in no apparent distress. HEENT: Pupils are equal, round, reactive to light. EOMI. No oral thrush. No oral lesions. NECK: Supple. No JVD, no bruits. No lymphadenopathy. CHEST: Clear to auscultation bilaterally. CARDIAC: S1-S2 regular rate and rhythm. ABDOMEN: Soft, nontender, nondistended. Bowel sounds are present. EXTREMITIES: Without any edema, erythema or cyanosis. SKIN: Without any petechiae, lesion or bruises. NEUROLOGIC: No focal deficits. PSYCHIATRIC: Mood and affect is appropriate. LABORATORY DATA WBC 13.6, hemoglobin is 10.8, MCV 88, platelet count 417. Serum chemistries shows sodium 139, potassium 3.3, chloride 103, CO2 26.4, BUN 11, creatinine 0.72, GFR 79, glucose is 141, calcium 8.7. IMAGING STUDIES Reviewed in the EMR. ASSESSMENT/PLAN 1. This is a 77-year-old female who has a past medical history of invasive breast carcinoma. She has undergone left-sided mastectomy and sentinel lymph node biopsy. She did not receive any adjuvant radiation treatments. She has never seen an oncologist and was never placed on hormonal blockade therapy. She now presents with 1. Progressive stage IV breast cancer with mets to the lung. I have reviewed her previous pathology results from her biopsy in January of 2016. She had a mastectomy. Pathology confirmed invasive carcinoma with the largest size of 1 cm. This was a ductal type carcinoma. Histological grade was three. Overall grade was two. There were multiple foci of invasive cancer, total of four. The largest focus was 1 cm. DCIS was present. There was a total of three sentinel lymph nodes that were evaluated which were negative for carcinoma. The patient has now undergone CT-guided biopsy of the chest wall and this is consistent with metastatic adenocarcinoma with breast primary. The tumor is positive for CK 7 and is negative for CK 20, mammaglobin and TTF-1. Recurrent biopsy was compared with the previous breast cancer biopsy. I had a long discussion with the patient. I explained to her that she has metastatic breast cancer. Even though she has advanced disease, there are multiple options for treatment. Usually patients with metastatic breast cancer who are hormone receptor positive are treated with hormonal blockade therapy. She will need staging studies including a PET CT scan. This can be completed outpatient. The patient does not want to stay in the hospital. She would like to leave today. I have asked her to call my clinic to schedule an appointments as soon as possible. I would like to see her in my clinic next week. All questions asked by the patient were answered to her satisfaction. 2. Altered mental status, hypercalcemia. This has improved. She will need outpatient lab follow up. We will schedule to have her come in my clinic to have lab check up in one week. I have given the patient my contact information. I have answered all her questions. Thank you for allowing me to participate in the care of this patient. I will continue to follow this patient along. MD JEANETH Puente/ /10:26 PM /10:43 PM MAGGIE
[2017-04-02 10:53] LABS: PTH RELATED PEPTIDE 2.5 pmol/L (<2.0)
== END 2017-03-30 17:30 | disposition home health service (06) | DRG 71 ==
LOC: NEPC 04:13 → NEDA 06:15 → N06A 08:52 → N04A 03-23 22:38
PROVIDERS: ADMIT Hospitalist; ATTEND Hospitalist
PROC: 0BBJ3ZX Excision of Left Lower Lung Lobe, Percutaneous Approach, Diagnostic (ICD-10-PCS; principal; 2017-03-25)
DX: G93.40 Encephalopathy, unspecified (principal); C78.00 Secondary malignant neoplasm of unspecified lung; N17.9 Acute kidney failure, unspecified; J90 Pleural effusion, not elsewhere classified; E86.0 Dehydration; J44.9 Chronic obstructive pulmonary disease, unspecified; E83.52 Hypercalcemia; I10 Essential (primary) hypertension; Z85.3 Personal history of malignant neoplasm of breast; F17.210 Nicotine dependence, cigarettes, uncomplicated; Z90.12 Acquired absence of left breast and nipple; R41.0 Disorientation, unspecified; T42.8X5A Adverse effect of antiparkinsonism drugs and other central muscle-tone depressants, initial encounter; Y92.9 Unspecified place or not applicable; D72.829 Elevated white blood cell count, unspecified; Z85.828 Personal history of other malignant neoplasm of skin; M54.5 Low back pain
CPT/HCPCS: 32405; 70450; 70553; 71010; 71111; 71250; 77012; 80048; 80053; 81001; 82140; 82306; 82330; 82397; 82550; 82652; 83690; 83735; 83970; 84155; 84443; 84484; 85025; 85610; 85730; 87015; 87070; 87102; 87116; 87176; 87205; 87206; 88112; 88305; 88341; 88342; 88361; 93005; 94060; 94620; 94664; A9579; J2060; J3010; J3489; J7030; J7050; P9612

== ENCOUNTER 2017-05-10 13:32 | Inpatient (IN) | payer OTHER, MEDICARE ==
[~2017-05-10] VITALS: Ht 157.5 cm; Wt 52.2 kg
[~2017-05-10 13:32] MED LIST: AMLO5TAB2 PO; LISI-515 PO; METO50TA11 PO; OXYGENTANK NAS.CANULA; SENN1TAB PO; ULTR50TA5 PO
[2017-05-10 13:46] VITALS: TEMP 100
[2017-05-10] MEDS ORDERED: SODIUM CHLOR 0.9% 1000 ML INJ 1,000 ML IV SCH (13:47)
[2017-05-10 13:57] VITALS: BP 149/76; PULSE 89; RESP 11; TEMP 100; O2SAT 100; O2SAT 99
[2017-05-10 14:14] LABS: AUTOMATED NEUTROPHIL # 26.8 TH/MM3 (1.8-7.7); BASOPHIL # 0.1 TH/MM3 (0-0.2); BASOPHIL % 0.3 % (0.0-2.0); EOSINOPHIL % 0.1 % (0.0-4.0); HEMO FLAGS DIFF FINAL; LYMPHOCYTE # 0.6 TH/MM3 (1.0-4.8); MEAN CELL VOLUME 86.3 FL (80.0-100.0); MEAN CORPUSCULAR HEMOGLOBIN 27.9 PG (27.0-34.0); MEAN CORPUSCULAR HGB CONC 32.4 % (32.0-36.0); MONO % 4.2 % (0.0-8.0); NEUT % 93.4 % (16.0-70.0); PLATELET COUNT 224 TH/MM3 (150-450); RED BLOOD COUNT 4.05 MIL/MM3 (4.00-5.30); RED CELL DISTRIBUTION WIDTH 14.6 % (11.6-17.2); WHITE BLOOD COUNT 28.7 TH/MM3 (4.0-11.0)
[2017-05-10 14:21] LABS: PROTHROMBIN TIME - PATIENT 10.8 SEC (9.8-11.6)
[2017-05-10] MEDS ORDERED: OXYC1CAP PO (14:23)
[2017-05-10] MEDS ORDERED: FENT25DI T-DERMAL (14:23)
[2017-05-10] MEDS ORDERED: METO100T9 PO (14:23)
[2017-05-10] MEDS ORDERED: ANAS1TAB PO (14:23)
[2017-05-10] MEDS ORDERED: TRIA1CAP6 PO (14:23)
[2017-05-10] MEDS ORDERED: MIRTA15 PO (14:23)
[2017-05-10 14:29] LABS: ANION GAP 9 MEQ/L (5-15); AST (GOT) 35 U/L (15-37); BICARBONATE 27.4 MEQ/L (21.0-32.0); BLOOD UREA NITROGEN 25 MG/DL (7-18); CHLORIDE 97 MEQ/L (98-107); GLOMERULAR FILTRATION RATE 67 ML/MIN (>89); POTASSIUM 3.8 MEQ/L (3.5-5.1); SODIUM (NA) 133 MEQ/L (136-145)
[2017-05-10] MEDS: SODIUM CHLORIDE 0.9% FLUSH 5 ML FLUSH IV FLUSH PRN ×2 (14:30→15:27)
[2017-05-10 14:33] LABS: BLOOD GAS BASE EXCESS 2.8 mmol/L (-2-2); BLOOD GAS CARBOXYHEMOGLOBIN 1.7 % (0-4); BLOOD GAS HCO3 26 mmol/L (22-26); BLOOD GAS METHEMOGLOBIN 0.6 % (0-2); BLOOD GAS O2 HGB SATURATION 96 % (90-100); BLOOD GAS PCO2 37 mmHg (38-42); BLOOD GAS PO2 95 mmHG (61-120); CRITICAL VALUE NO; DRAW SITE RT RADIAL; LITER FLOW 2.5 L/M; NUMBER OF ARTERIAL PUNCTURES 1; OXYGEN DEVICE NASAL CANNULA; STAT YES; TEMP CORR TO 98.6; ULNAR PULSE Y
[2017-05-10 14:38] LABS: ALKALINE PHOSPHATASE 71 U/L (45-117); ALT (GPT) 30 U/L (10-53); TOTAL BILIRUBIN ADULT 0.7 MG/DL (0.2-1.0)
[2017-05-10 15:07] LABS: BACTERIA, URINE OCC /hpf; BLOOD, URINE NEG (NEG); COMMENT (UR) CATH-CULTURE IND; CULTURE IF INDICATED CATH CULTURE IND; GLUCOSE,URINE 150 mg/dL (NEG); KETONE, URINE NEG (NEG); MUCUS URINE FEW /lpf (OCC); NITRITE,URINE NEG (NEG); SQUAMOUS EPITHELIAL CELL URINE 1 /hpf (0-5); URINE COLOR YELLOW (YELLW/STRAW)
--- NOTE | 2017-05-10 15:08 | EKG ---
Date Performed: 05/10/2017 Time Performed: 13:53:33 PTAGE: 77 years EKG: Sinus rhythm Nonspecific ST segment depression ABNORMAL ECG COMPARED TO PRIOR ELECTROCARDIOGRAM, ST depression is present. PREVIOUS TRACING : 03/22/2017 04.24 DOCTOR: Raza Whitt Interpretating Date/Time 05/10/2017 15:07:17
--- NOTE | 2017-05-10 15:09 | PD ---
HPI Chief Complaint: Altered Mental Status Time Seen by Provider: 13:47 Travel History International Travel<30 days: No Contact w/Intl Traveler<30days: No Traveled to known affect area: No History of Present Illness HPI 77-year-old female came to the emergency room brought by EMS for altered mental status. Patient's sister called 911 and since she has noticed that patient's mental state has been declining over past few days. Patient lives alone but her sister came to visit her from [place] and has been with her for past 4 days. Sister is also noticed the patient has not been eating or drinking very well. She has history of metastatic breast cancer. Dr. Syed is her oncologist. She has been getting chemotherapy. Yesterday patient was confused and hallucinating but refused to come to the emergency room when her sister try to call 911. Today the sister noticed that she was very lethargic and decided to call EMS and patient did not resist. Patient upon arrival looks lethargic but was answering questions somewhat appropriately. She was oriented to some extent. Rectal temp was 100. Upon asking patient said she had some pain in the left upper quadrant of her abdomen and chest wall [facility] Past Medical History Narrative Medical List of her past medical, surgical, social and family history was reviewed from the nursing note. Arthritis: Yes Cancer: Yes (BREAST / LUNG) Cardiovascular Problems: No Diminished Hearing: No Genitourinary: No Hypertension: Yes Musculoskeletal: Yes (chronic back pain) Neurologic: No Reproductive: No Respiratory: No Pneumonia: Yes Seizures: No ?: Not : 2 Para: 2 Past Surgical History Other Surgery: Yes (left mastectomy 01/2016) Social History Alcohol Use: No Tobacco Use: Yes Substance Use: No Allergies-Medications (Allergen,Severity, Reaction): Coded Allergies: No Known Allergies (Unverified , 05/10/17) Comments No known drug allergies Reported Meds & Prescriptions Reported Meds & Active Scripts Active Oxygen tank (Oxygen) 1 Ea Tank 2 Liter CONSTANTINO.CANULA CONTINUOUS Oxygen Concentrator Portable Gaseous 2 L/min via Nasal Cannula Continuous For 99 months Senna Plus 8.6-50 mg (Sennosides-Docusate Sodium) 1 Tab Tab 2 Tab PO BID Reported Fentanyl Patch 72 HR (Fentanyl) 25 Mcg/Hr Patch 25 Mcg T-DERMAL Q72H Dyrenium (Triamterene) 50 Mg Cap 25 Mg PO DAILY Mirtazapine 15 Mg Tab 15 Mg PO DAILY Oxycodone (Oxycodone HCl) 5 Mg Cap 5 Mg PO QID Anastrozole 1 Mg Tab 1 Mg PO DAILY Metoprolol Succinate ER 24 HR (Metoprolol Succinate) 100 Mg Tab 100 Mg PO DAILY Amlodipine (Amlodipine Besylate) 5 Mg Tab 5 Mg PO DAILY Narrative Medication List of her home medications reviewed from the nursing note. Review of Systems Except as stated in HPI: all other systems reviewed are Neg Physical Exam Narrative GENERAL: Lethargic, moderate distress, elderly and frail, confused SKIN: Focused skin assessment warm/dry. HEAD: Atraumatic. Normocephalic. EYES: Pupils equal and round. No scleral icterus. No injection or drainage. ENT: No nasal bleeding or discharge. Dry mucous membrane, oral thrush NECK: Trachea midline. No JVD. CARDIOVASCULAR: Regular rate and rhythm. No murmur appreciated. RESPIRATORY: No accessory muscle use. Clear to auscultation. Breath sounds equal bilaterally. GASTROINTESTINAL: Abdomen soft, tender left upper quadrant, nondistended. Hepatic and splenic margins not palpable. MUSCULOSKELETAL: No obvious deformities. No clubbing. No cyanosis. No edema. NEUROLOGICAL: GCS of 13. No obvious cranial nerve deficits. Motor grossly within normal limits. Normal speech. PSYCHIATRIC: Appropriate mood and affect; insight and judgment normal. Data Data Last Documented VS Orders Electrocardiogram (05/10/17 13:47) Ammonia (05/10/17 13:47) Complete Blood Count With Diff (05/10/17 13:47) Comprehensive Metabolic Panel (05/10/17 13:47) Prothrombin Time / Inr (Pt) (05/10/17 13:47) Troponin I (05/10/17 13:47) Thyroid Stimulating Hormone (05/10/17 13:47) Urinalysis - C+S If Indicated (05/10/17 13:47) Lactic Acid Sepsis Protocol (05/10/17 13:47) Blood Culture (05/10/17 13:47) Chest, Single Ap (05/10/17 13:47) Ct Brain W/O Iv Contrast(Rout) (05/10/17 13:47) Blood Glucose (05/10/17 13:47) Ecg Monitoring (05/10/17 13:47) Iv Access Insert/Monitor (05/10/17 13:47) Oximetry (05/10/17 13:47) Sodium Chloride 0.9% Flush (Ns Flush) (05/10/17 14:00) Sodium Chlor 0.9% 1000 Ml Inj (Ns 1000 M (05/10/17 13:47) Arterial Blood Gas (Abg) (05/10/17 ) Ct Thorax/ Chest W Iv Contrast (05/10/17 ) Ct Abd/Pel W Iv Contrast(Rout) (05/10/17 ) Urine Culture (05/10/17 14:40) Sodium Chlor 0.9% 1000 Ml Inj (Ns 1000 M (05/10/17 15:15) Piperacil-Tazo 4.5 Gm Premix (Zosyn 4.5 (05/10/17 15:15) Vancomycin Inj (Vancomycin Inj) (05/10/17 15:15) Iohexol 350 Inj (Omnipaque 350 Inj) (05/10/17 15:26) Admit Order (Ed Use Only) (05/10/17 16:11) Labs MDM Medical Decision Making Medical Screen Exam Complete: Yes Emergency Medical Condition: Yes Medical Record Reviewed: Yes Interpretation(s) Twelve-lead EKG was reviewed by me. Normal sinus rhythm, normal axis, nonspecific ST-T wave changes. Heart rate of 92 bpm. Differential Diagnosis Brain metastases, sepsis, electrolyte abnormality, dehydration Narrative Course 4:33 PM blood test results were suggestive of sepsis with extreme leukocytosis. Patient was covered with broad-spectrum antibiotic and 2 L of IV fluid bolus for that. CT scan of her chest and abdomen and pelvis suggested a large cavitary lesion in the left lower lobe of the lung that was eroding the chest wall. As per the radiologist this was most probably metastatic in nature. There was also a questionable lesion in the left lower lobe of kidney. UA is some questionable for UTI. However the broad-spectrum antibioticthat has been started should cover that. Patient was admitted to the hospitalist. I discussed with her sister at length and let her know the possibility of sepsis and requirement for admission. She understood. She expressed a concern after the patient was treated for her disposition since she did not think patient could afford to live alone by herself any longer. Critical Care Narrative Aggregate critical care time was 45 minutes. Time to perform other separately billable procedures was not included in the critical care time. My time did not include minutes spent treating any other patients simultaneously or on activities that did not directly contribute to the patient's treatment. The services I provided to this patient were to treat and/or prevent clinically significant deterioration that could result in: Altered mental status, sepsis, sepsis protocol I provided critical care services requiring my management, as noted below: Chart data review, documentation time, medication orders and management, vital sign assessments/reviewing monitor data, ordering and reviewing lab tests, ordering and interpreting/reviewing x-rays and diagnostic studies, care of the patient and discussion of the patient with the admitting physicians. Procedures EKG Prior to Arrival: No Sepsis Criteria SIRS Criteria (2 or more): WBC > 69001, < 4000 or > 10% bands Severe Sepsis (+one): Organ Dysfunction Diagnosis Primary Impression: Altered mental status Qualified Code: R40.1 - Stupor Additional Impressions: Sepsis Qualified Code: A41.9 - Sepsis, due to unspecified organism UTI (urinary tract infection) Qualified Code: N39.0 - Urinary tract infection without hematuria, site unspecified cavitary lung mass Leukocytosis Qualified Code: D72.829 - Leukocytosis, unspecified type Admitting Information Admitting Physician Requests: Admit Emily Wu MD May 10, 2017 15:09 Potassium Level 3.8 MEQ/L Chloride Level 97 MEQ/L Carbon Dioxide Level 27.4 MEQ/L Anion Gap 9 MEQ/L Blood Urea Nitrogen 25 MG/DL Creatinine 0.83 MG/DL Estimat Glomerular Filtration 67 ML/MIN Rate Random Glucose 237 MG/DL Calcium Level 9.7 MG/DL Total Bilirubin 0.7 MG/DL Aspartate Amino Transf 35 U/L (AST/SGOT) Alanine Aminotransferase 30 U/L (ALT/SGPT) Alkaline Phosphatase 71 U/L Troponin I 0.09 NG/ML Total Protein 5.5 GM/DL Albumin 2.3 GM/DL Thyroid Stimulating Hormone 0.412 uIU/ML 3rd Gen Lactic Acid Level 1.7 mmol/L Ammonia 12 MCMOL/L Blood Gas Puncture Site RT RADIAL Blood Gas Patient Temperature 98.6 Blood Gas HCO3 26 mmol/L Blood Gas Base Excess 2.8 mmol/L Blood Gas Oxygen Saturation 96 % Arterial Blood pH 7.47 Arterial Blood Partial 37 mmHg Pressure CO2 Arterial Blood Partial 95 mmHG Pressure O2 Arterial Blood Oxygen Content 15.0 Vol % Arterial Blood 1.7 % Carboxyhemoglobin Arterial Blood Methemoglobin 0.6 % Blood Gas Hemoglobin 11.0 G/DL Oxygen Delivery Device NASAL CANNULA Blood Gas Liter Flow 2.5 L/M Urine Color YELLOW Urine Turbidity CLEAR Urine pH 6.0 Urine Specific [place] 1.019 Urine Protein 30 mg/dL Urine Glucose (UA) 150 mg/dL Urine Ketones NEG mg/dL Urine Occult Blood NEG Urine Nitrite NEG Urine Bilirubin NEG Urine Urobilinogen LESS THAN 2.0 MG/DL Urine Leukocyte Esterase MOD Urine RBC 6 /hpf Urine WBC 5 /hpf Urine Squamous Epithelial 1 /hpf Cells Urine Bacteria OCC /hpf Urine Mucus FEW /lpf Microscopic Urinalysis Comment CATH-CULTURE IND MDM Medical Decision Making Medical Screen Exam Complete: Yes Emergency Medical Condition: Yes Medical Record Reviewed: Yes Interpretation(s) Twelve-lead EKG was reviewed by me. Normal sinus rhythm, normal axis, nonspecific ST-T wave changes. Heart rate of 92 bpm. Differential Diagnosis Brain metastases, sepsis, electrolyte abnormality, dehydration Narrative Course 4:33 PM blood test results were suggestive of sepsis with extreme leukocytosis. Patient was covered with broad-spectrum antibiotic and 2 L of IV fluid bolus for that. ED scan of her chest and abdomen and pelvis suggested a large cavitary lesion in the left lower lobe of the lung that was eroding the chest wall. The radiologist this was most probably metastatic in nature. There was also a questionable lesion in the left lower lobe of kidney. UA is some questionable for UTI. However the broad-spectrum antibiotic should cover that. Patient was admitted to the hospitalist. I discussed with her sister at length and let her know the possibility of sepsis and requirement for admission. She understood. She expressed a concern after the patient was treated for her disposition since she did not think patient could afford to live alone by herself any longer. Critical Care Narrative Aggregate critical care time was 45 minutes. Time to perform other separately billable procedures was not included in the critical care time. My time did not include minutes spent treating any other patients simultaneously or on activities that did not directly contribute to the patient's treatment. The services I provided to this patient were to treat and/or prevent clinically significant deterioration that could result in: Altered mental status, sepsis, sepsis protocol I provided critical care services requiring my management, as noted below: Chart data review, documentation time, medication orders and management, vital sign assessments/reviewing monitor data, ordering and reviewing lab tests, ordering and interpreting/reviewing x-rays and diagnostic studies, care of the patient and discussion of the patient with the admitting physicians. Procedures EKG Prior to Arrival: No Sepsis Criteria SIRS Criteria (2 or more): WBC > 29936, < 4000 or > 10% bands Severe Sepsis (+one): Organ Dysfunction Diagnosis Primary Impression: Altered mental status Qualified Code: R40.1 - Stupor Additional Impressions: Sepsis Qualified Code: A41.9 - Sepsis, due to unspecified organism UTI (urinary tract infection) Qualified Code: N39.0 - Urinary tract infection without hematuria, site unspecified cavitary lung mass Leukocytosis Qualified Code: D72.829 - Leukocytosis, unspecified type Admitting Information Admitting Physician Requests: Emily Wood MD May 10, 2017 15:09
[2017-05-10] MEDS ORDERED: PIPERACIL-TAZO 4.5 GM PREMIX 100 ML IV ONE (15:15)
[2017-05-10] MEDS ORDERED: SODIUM CHLOR 0.9% 1000 ML INJ 1,000 ML IV ONE (15:15)
[2017-05-10] MEDS ORDERED: VANCOMYCIN INJ 1,000 MG in SODIUM CHLOR 0.9% 250 ML INJ 250 ML IV ONE (15:15)
--- NOTE | 2017-05-10 15:19 | RADRPT ---
EXAM DATE/TIME: 05/10/2017 15:06 [facility] COMPARISON: CT BRAIN W/O CONTRAST, March 22, 2017, 4:40. INDICATIONS : Altered mental status. RADIATION DOSE: 69.15 CTDIvol (mGy) MEDICAL HISTORY : Carcinoma, breast. Carcinoma, lung. Hypertension. SURGICAL HISTORY : None. ENCOUNTER: Initial ACUITY: 1 day PAIN SCALE: 4/10 LOCATION: cranial TECHNIQUE: Multiple contiguous axial images were obtained of the head. Using automated exposure control and adj ustment of the mA and/or kV according to patient size, radiation dose was kept as low as reasonably a chievable to obtain optimal diagnostic quality images. FINDINGS: CEREBRUM: The ventricles are normal for age. No evidence of midline shift, mass lesion, hemorrhage or acute in farction. No extra-axial fluid collections are seen. POSTERIOR FOSSA: The cerebellum and brainstem are intact. The 4th ventricle is midline. The cerebellopontine angle i s unremarkable. EXTRACRANIAL: The visualized portion of the orbits is intact. SKULL: The calvaria is intact. No evidence of skull fracture. CONCLUSION: No acute disease. Koko Plasencia MD on May 10, 2017 at 15:16 Board Certified Radiologist. This report was verified electronically.
[2017-05-10] MEDS ORDERED: IOHEXOL 350 MG/ML 10 ML VIAL (for RAD DIAG) IV ONE (15:26)
--- NOTE | 2017-05-10 15:26 | RADRPT ---
EXAM DATE/TIME: 05/10/2017 14:10 [facility] COMPARISON: CHEST SINGLE AP, March 22, 2017, 4:48. INDICATIONS : Syncope. MEDICAL HISTORY : Carcinoma, breast. Hypertension Chronic obstructive pulmonary disease. SURGICAL HISTORY : Mastectomy, left. Squamous cell removed from cheek. ENCOUNTER: Initial ACUITY: 1 day PAIN SCORE: 2/10 LOCATION: Bilateral chest FINDINGS: Examination is limited secondary to patient motion. Redemonstration of large cavitary mass in the lef t lower lobe similar to prior CT exam. Lungs otherwise grossly clear. Cardiomediastinal contours are within normal limits. Bony thorax is grossly intact. CONCLUSION: 1. Redemonstration of large left lower lobe cavitary mass similar to recent CT exam. 2. Otherwise, no acute abnormality. Constantin Erickson MD on May 10, 2017 at 15:12 Board Certified Radiologist. This report was verified electronically.
--- NOTE | 2017-05-10 15:55 | RADRPT ---
EXAM DATE/TIME: 05/10/2017 15:10 [facility] COMPARISON: CT THORAX W/O CONTRAST, March 24, 2017, 9:06. CT NEEDLE BIOPSY LUNG, LEFT, March 25, 2017, 14:57. INDICATIONS : Evaluate for metastatic disease. IV CONTRAST: 100 cc Omnipaque 350 (iohexol) IV ; Cumulative dose for multiple exams. RADIATION DOSE: 5.13 CTDIvol (mGy) ; Combined studies - Thorax/Abdomen/Pelvis MEDICAL HISTORY : Carcinoma, breast. Carcinoma, lung. Hypertension. SURGICAL HISTORY : None. ENCOUNTER: Initial ACUITY: 1 day PAIN SCALE: 4/10 LOCATION: Bilateral chest TECHNIQUE: Volumetric scanning of the chest was performed. Using automated exposure control and adjustment of t he mA and/or kV according to patient size, radiation dose was kept as low as reasonably achievable to obtain optimal diagnostic quality images. FINDINGS: There has been interval enlargement of the cavitary mass within the left lower lobe which now extends through the posterior chest wall and erodes the adjacent rib. This lesion measures 8.7 x 6.9 cm in greatest dimension. There is also interval worsening mediastinal lymphadenopathy with the largest ly mph nodes in the right paratracheal region measuring 4.5 x 3.0 cm and the subcarinal space measuring 4.0 x 2.7 cm. Left hilar lymphadenopathy is also noted. The mediastinal and left hilar lymphadenopa thy appears necrotic. There is an area of decreased perfusion or possible complex/solid mass involvi ng the lateral aspect of the upper pole of the right kidney which will be described in more detail in the CT of the abdomen report done the same day. Degenerative changes and scoliosis of the thoracolu mbar spine are noted. Underlying emphysematous changes are noted bilaterally. CONCLUSION: 1. Interval worsening cavitary mass within the left lower lobe which now extends through the posterio r chest wall and results in extensive lytic destruction of the adjacent posterior ribs. This measures 8.7 x 6.9 cm in greatest dimension. This is consistent with neoplasm. There is also enlargement of the right paratracheal and subcarinal mediastinal as well as left hilar lymphadenopathy which appear necrotic. 2. Underlying emphysematous changes within the lungs bilaterally. 3. Degenerative changes and scoliosis of the thoracic spine. 4. Indeterminate area of decreased perfusion versus complex/solid lesion within the upper pole of the right kidney which will be described in more detail on the CT of the abdomen report done this same d ay. Koko Plasencia MD on May 10, 2017 at 15:36 Board Certified Radiologist. This report was verified electronically.
--- NOTE | 2017-05-10 15:56 | RADRPT ---
EXAM DATE/TIME: 05/10/2017 15:10 [place] COMPARISON: No previous studies available for comparison. INDICATIONS : Evaluate for metastatic disease. IV CONTRAST: 100 cc Omnipaque 350 (iohexol) IV ; Cumulative dose for multiple exams. ORAL CONTRAST: No oral contrast ingested. RADIATION DOSE: 9.96 CTDIvol (mGy) ; Combined studies - Thorax/Abdomen/Pelvis MEDICAL HISTORY : Carcinoma, breast. Carcinoma, lung. Hypertension. SURGICAL HISTORY : None. ENCOUNTER: Initial ACUITY: 1 day PAIN SCALE: 4/10 LOCATION: Bilateral abdomen. TECHNIQUE: Volumetric scanning of the abdomen and pelvis was performed. Using automated exposure control and ad justment of the mA and/or kV according to patient size, radiation dose was kept as low as reasonably achievable to obtain optimal diagnostic quality images. FINDINGS: LOWER LUNGS: Enlarging cavitary left lower lobe mass which invades the posterior chest wall and erodes the adjacen t ribs which is described in detail in the CT of the chest report done the same day. LIVER: Homogeneous density without lesion. There is no dilation of the biliary tree. No calcified gallston es. SPLEEN: Normal size without lesion. PANCREAS: Within normal limits. KIDNEYS: Area of decreased perfusion versus complex/solid mass within the upper pole of the right kidney measu ring 2.5 x 2.1 cm which is nonspecific. Outpatient PET/CT scan maybe helpful for further evaluation i f clinically indicated. No hydronephrosis noted on either side. 1 cm left renal cyst is noted ADRENAL GLANDS: Within normal limits. VASCULAR: There is no aortic aneurysm. BOWEL/MESENTERY: Diffuse air-filled dilated loops of small and large bowel are noted suggesting diffuse ileus. ABDOMINAL WALL: Within normal limits. RETROPERITONEUM: There is no lymphadenopathy. BLADDER: No wall thickening or mass. Stroud catheter is noted in place. REPRODUCTIVE: Within normal limits. INGUINAL: There is no lymphadenopathy or hernia. MUSCULOSKELETAL: Degenerative changes and scoliosis of the thoracolumbar spine are noted. CONCLUSION: 1. Area of decreased perfusion versus complex/solid mass within the upper pole of the right kidney me asuring 2.5 x 2.1 cm which is nonspecific. Outpatient PET/CT scan maybe helpful for further evaluatio n if clinically indicated. 2. Uncomplicated colonic diverticulosis. 3. Degenerative changes and scoliosis of the thoraco-lumbar spine. 4. 1 cm left renal cyst. 5. Enlarging cavitary left lower lobe mass which invades the posterior chest wall and erodes the taco cent ribs which is described in detail in the CT of the chest report done the same day. Koko Plasencia MD on May 10, 2017 at 15:46 Board Certified Radiologist. This report was verified electronically.
[2017-05-10 16:37] VITALS: BP 117/61; PULSE 92; RESP 20; O2SAT 98
[2017-05-10] MEDS ORDERED: fentaNYL 25 MCG/HR PATCH T-DERMAL SCH ×3 (17:00→18:00)
--- NOTE | 2017-05-10 17:25 | HHI.HP ---
[facility] Primary [facility] Physician Zia Syed MD Admission Diagnosis sepsis, altered mental status, UTI, cavitary lung mass Diagnoses: Chief Complaint: generalized weakness, poor po appetite, fever Travel History International Travel<30 Days: No Contact w/Intl Traveler <30 Da: No Traveled to Known Affected Are: No Sepsis Criteria SIRS Criteria (2 or more): Temp > 100.9 or < 96.8, Heart rate over 90, RR > 20 or PaCO2 < 32, WBC > 38571, < 4000 or > 10% bands Sepsis Criteria (SIRS+source): Infect source susp/known Criteria Outcome: Meets sepsis criteria History of Present Illness Patient is a 77-year-old female with history of breast cancer status post mastectomy, history of lung cancer, COPD on O2 nasal cannula who presented to the ER, complaining of feeling hot on and off with increasing back pain. Patient denies any cough or any sputum production, occasional headache, denies any diarrhea no urinary symptoms. Patient no complaints of abdominal discomfort. Patient still smokes 5-6 sticks per day. She is followed closely by Dr. Syed from oncology service and she was brought in today by her daughter because of increasing pain for the for past 4-5 days lower back pain. She has not been eating with poor by mouth appetite and feels very weak. Patient admitted for further evaluation. Review of Systems Constitutional: COMPLAINS OF: Diaphoretic episodes, Fever, DENIES: Fatigue, Weight gain, Weight loss, Chills, Dizziness, Change in appetite, Night Sweats Endocrine: DENIES: Abnorml menstrual pattern, Heat/cold intolerance, Polydipsia , Polyuria, Polyphagia Eyes: DENIES: Blurred vision, Diplopia, Eye inflammation, Eye pain, Vision loss , Photosensitivity, Double Vision Ears, nose, mouth, throat: DENIES: Tinnitus, Hearing loss, Vertigo, Nasal discharge, Oral lesions, Throat pain, Hoarseness, Ear Pain, Running Nose, Epistaxis, Sinus Pain, Toothache, Odynophagia Respiratory: DENIES: Apneas, Cough, Snoring, Wheezing, Hemoptysis, Sputum production, Shortness of breath Cardiovascular: DENIES: Chest pain, Palpitations, Syncope, Dyspnea on Exertion , PND, Lower Extremity Edema, Orthopnea, Claudication Gastrointestinal: DENIES: Abdominal pain, Black stools, Bloody stools, Constipation, Diarrhea, Nausea, Vomiting, Difficulty Swallowing, Anorexia Genitourinary: DENIES: Abnormal vaginal bleeding, Dysmenorrhea, Dyspareunia, Sexual dysfunction, Urinary frequency, Urinary incontinence, Urgency, Hematuria , Dysuria, Nocturia, Vaginal discharge Musculoskeletal: COMPLAINS OF: Back pain, DENIES: Joint pain, Muscle aches, Stiffness, Joint Swelling, Neck pain Integumentary: DENIES: Abnormal pigmentation, Pruritus, Rash, Nail changes, Breast masses, Breast skin changes, Nipple discharge Hematologic/lymphatic: DENIES: Bruising, Lymphadenopathy Immunologic/allergic: DENIES: Eczema, Urticaria Neurologic: DENIES: Abnormal gait, Headache, Localized weakness, Paresthesias, Seizures, Speech Problems, Tremor, Poor Balance Psychiatric: DENIES: Anxiety, Confusion, Mood changes, Depression, Hallucinations, Agitation, Suicidal Ideation, Homicidal Ideation, Delusions Past Family Social History Past Medical History Breast cancer status post left mastectomy in January 2016 Patient refused follow-up treatment with tamoxifen and radiation. 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 History of hypertension History of COPD Past Surgical History Left mastectomy Lung biopsies Reported Medications Toprol-XL 100 mg daily fentanyl patch 25 g every 3 days Roxicodone 5 mg 3 times a day Morphine sulfate 15 mg daily Mirtazapine 50 mg daily Triamterene 25 mg daily Allergies: Coded Allergies: No Known Allergies (Unverified , 05/10/17) Family History Noncontributory Social History Patient [id number] smoking still smokes 5-6 sticks a no chronic alcohol use Physical Exam Vital Signs Vital Signs Date Time Temp Pulse Resp B/P Pulse Ox O2 Delivery O2 Flow Rate FiO2 05/10/17 16:37 92 20 117/61 98 Nasal Cannula 2 05/10/17 13:57 100.0 89 11 149/76 100 Nasal Cannula 2.0 05/10/17 13:57 99 Nasal Cannula 2.0 05/10/17 13:46 100.0 Physical Exam GENERAL: Weak looking dry SKIN: No rashes, ecchymoses or lesions. Cool and dry. HEAD: Atraumatic. Normocephalic. No temporal or scalp tenderness. EYES: Pupils equal round and reactive. Extraocular motions intact. No scleral icterus. No injection or drainage. ENT: Nose without bleeding, purulent drainage or septal hematoma. Throat without erythema, tonsillar hypertrophy or exudate. Uvula midline. Airway patent. NECK: Trachea midline. No JVD or lymphadenopathy. Supple, nontender, no meningeal signs. CARDIOVASCULAR: Regular rate and rhythm without murmurs, gallops, or rubs. RESPIRATORY: Decreased Breath sounds and decreased vocal fremiti- left lung lung base - mid. No wheezes, rales, or rhonchi. GASTROINTESTINAL: Abdomen soft, non-tender, nondistended.. No guarding. MUSCULOSKELETAL: Extremities without clubbing, cyanosis, or edema. No joint tenderness, effusion, or edema noted. No calf tenderness. Negative Homans sign bilaterally. NEUROLOGICAL: Awake and alert. Cranial nerves II through XII intact. Motor and sensory grossly within normal limits. Five out of 5 muscle strength in all muscle groups. Normal speech. Laboratory Laboratory Tests Test 05/10/17 05/10/17 05/10/17 05/10/17 13:50 14:09 14:30 14:40 White Blood Count 28.7 Red Blood Count 4.05 Hemoglobin 11.3 Hematocrit 35.0 Mean Corpuscular Volume 86.3 Mean Corpuscular Hemoglobin 27.9 Mean Corpuscular Hemoglobin 32.4 Concent Red Cell Distribution Width 14.6 Platelet Count 224 Mean Platelet Volume 7.4 Neutrophils (%) (Auto) 93.4 Lymphocytes (%) (Auto) 2.0 Monocytes (%) (Auto) 4.2 Eosinophils (%) (Auto) 0.1 Basophils (%) (Auto) 0.3 Neutrophils # (Auto) 26.8 Lymphocytes # (Auto) 0.6 Monocytes # (Auto) 1.2 Eosinophils # (Auto) 0.0 Basophils # (Auto) 0.1 CBC Comment DIFF FINAL Differential Comment Prothrombin Time 10.8 Prothromb Time International 1.0 Ratio Sodium Level 133 Potassium Level 3.8 Chloride Level 97 Carbon Dioxide Level 27.4 Anion Gap 9 Blood Urea Nitrogen 25 Creatinine 0.83 Estimat Glomerular Filtration 67 Rate Random Glucose 237 Calcium Level 9.7 Total Bilirubin 0.7 Aspartate Amino Transf 35 (AST/SGOT) Alanine Aminotransferase 30 (ALT/SGPT) Alkaline Phosphatase 71 Troponin I 0.09 Total Protein 5.5 Albumin 2.3 Thyroid Stimulating Hormone 0.412 3rd Gen Lactic Acid Level 1.7 Ammonia 12 Blood Gas Puncture Site RT RADIAL Blood Gas Patient Temperature 98.6 Blood Gas HCO3 26 Blood Gas Base Excess 2.8 Blood Gas Oxygen Saturation 96 Arterial Blood pH 7.47 Arterial Blood Partial 37 Pressure CO2 Arterial Blood Partial 95 Pressure O2 Arterial Blood Oxygen Content 15.0 Arterial Blood 1.7 Carboxyhemoglobin Arterial Blood Methemoglobin 0.6 Blood Gas Hemoglobin 11.0 Oxygen Delivery Device NASAL CANNULA Blood Gas Liter Flow 2.5 Urine Color YELLOW Urine Turbidity CLEAR Urine pH 6.0 Urine Specific [place] 1.019 Urine Protein 30 Urine Glucose (UA) 150 Urine Ketones NEG Urine Occult Blood NEG Urine Nitrite NEG Urine Bilirubin NEG Urine Urobilinogen LESS THAN 2.0 Urine Leukocyte Esterase MOD Urine RBC 6 Urine WBC 5 Urine Squamous Epithelial 1 Cells Urine Bacteria OCC Urine Mucus FEW Microscopic Urinalysis Comment CATH-CULTURE IND Date/Time Procedure Status Source Growth 05/10/17 14:40 Urine Culture Received Urine Catheterized Urine Pending 05/10/17 14:10 Aerobic Blood Culture Received Blood Peripheral Pending 05/10/17 14:10 Anaerobic Blood Culture Received Blood Peripheral Pending Result Diagram: 05/10/17 1350 05/10/17 1350 Imaging Last Impressions Head CT 05/10/17 1347 Signed Impressions: Service Date/Time: Wednesday, May 10, 2017 15:06 - CONCLUSION: No acute disease. Koko Plasencia MD Chest X-Ray 05/10/17 1347 Signed Impressions: Service Date/Time: Wednesday, May 10, 2017 14:10 - CONCLUSION: 1. Redemonstration of large left lower lobe cavitary mass similar to recent CT exam. 2. Otherwise, no acute abnormality. Constantin Erickson MD Abdomen/Pelvis CT 05/10/17 0000 Signed Impressions: Service Date/Time: Wednesday, May 10, 2017 15:10 - CONCLUSION: 1. Area of decreased perfusion versus complex/solid mass within the upper pole of the right kidney measuring 2.5 x 2.1 cm which is nonspecific. Outpatient PET/CT scan maybe helpful for further evaluation if clinically indicated. 2. Uncomplicated colonic diverticulosis. 3. Degenerative changes and scoliosis of the thoraco-lumbar spine. 4. 1 cm left renal cyst. 5. Enlarging cavitary left lower lobe mass which invades the posterior chest wall and erodes the adjacent ribs which is described in detail in the CT of the chest report done the same day. 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 Discussed advance directives. Discussed Condition With Patient and family at bedside Physician Certification 2 Midnight Certification Type: Admission for Inpatient Services Order for Inpatient Services The services are ordered in accordance with Medicare regulations or non- Medicare payer requirements, as applicable. In the case of services not specified as inpatient-only, they are appropriately provided as inpatient services in accordance with the 2-midnight benchmark. Estimated LOS (days): 3 days is the estimated time the patient will need to remain in the hospital, assuming treatment plan goals are met and no additional complications. Post-Hospital Plan: Not yet determined Pedro Voss MD May 10, 2017 17:25
[2017-05-10] MEDS: REMOVE OLD DURAGESIC (FENTANYL) PATCH T-DERMAL SCH (18:09)
[2017-05-10] MEDS: D5-NS + KCL 20 MEQ INJ 1,000 ML IV SCH (19:26)
[2017-05-10 19:41] VITALS: BP 138/62; PULSE 90; RESP 20; O2SAT 94
[2017-05-10] MEDS: DOCUSATE SODIUM 50 MG/SENNA 8.6 MG TAB PO SCH (23:52)
[2017-05-11] VITALS: BP 140/78; PULSE 68; RESP 18; TEMP 99; O2SAT 96
[2017-05-11] MEDS: D5-NS + KCL 20 MEQ INJ 1,000 ML IV SCH ×2 (05:29→20:32)
[2017-05-11 06:40] VITALS: BP 117/59; PULSE 69; RESP 18; TEMP 99.5; O2SAT 98
[2017-05-11] MEDS: DOCUSATE SODIUM 50 MG/SENNA 8.6 MG TAB PO SCH ×2 (07:51→20:23)
[2017-05-11] MEDS: amLODIPine BESYLATE 5 MG TAB PO SCH ×3 (07:51→11:17)
[2017-05-11] MEDS: MIRTAZAPINE 15 MG TAB PO SCH (07:52)
[2017-05-11] MEDS: METOPROLOL SUCCINATE 50 MG EXTENDED RELEASE TAB PO SCH (07:52)
[2017-05-11 08:20] VITALS: BP 123/59; PULSE 65; RESP 21; TEMP 98.9; O2SAT 97
--- NOTE | 2017-05-11 11:49 | HHI.PR ---
Subjective Remarks no complains of cough or sputum production left lower quadrant discomfort, no diarrhea no urinary complaints Objective Vitals Vital Signs Date Time Temp Pulse Resp B/P Pulse Ox O2 Delivery O2 Flow Rate FiO2 05/11/17 08:20 98.9 65 21 123/59 97 05/11/17 06:40 99.5 69 18 117/59 98 05/11/17 00:00 99.0 68 18 140/78 96 05/10/17 19:41 90 20 138/62 94 Nasal Cannula 2 05/10/17 19:25 20 05/10/17 19:25 20 05/10/17 16:37 92 20 117/61 98 Nasal Cannula 2 05/10/17 13:57 100.0 89 11 149/76 100 Nasal Cannula 2.0 05/10/17 13:57 99 Nasal Cannula 2.0 05/10/17 13:46 100.0 I/O 05/10/17 05/10/17 05/10/17 05/11/17 05/11/17 05/11/17 07:00 15:00 23:00 07:00 15:00 23:00 Intake Total 1000 ml Output Total 900 ml Balance 1000 ml -900 ml Intake IV Total 1000 ml Output Urine Total 900 ml # Bowel Movements 0 Result Diagram: 05/10/17 1350 05/10/17 1350 Imaging Last Impressions Head CT 05/10/17 1347 Signed Impressions: Service Date/Time: Wednesday, May 10, 2017 15:06 - CONCLUSION: No acute disease. Koko Plasencia MD Chest X-Ray 05/10/17 1347 Signed Impressions: Service Date/Time: Wednesday, May 10, 2017 14:10 - CONCLUSION: 1. Redemonstration of large left lower lobe cavitary mass similar to recent CT exam. 2. Otherwise, no acute abnormality. Constantin Erickson MD Chest CT 05/10/17 0000 Signed Impressions: Service Date/Time: Wednesday, May 10, 2017 15:10 - CONCLUSION: 1. Interval worsening cavitary mass within the left lower lobe which now extends through the posterior chest wall and results in extensive lytic destruction of the adjacent posterior ribs. This measures 8.7 x 6.9 cm in greatest dimension. This is consistent with neoplasm. There is also enlargement of the right paratracheal and subcarinal mediastinal as well as left hilar lymphadenopathy which appear necrotic. 2. Underlying emphysematous changes within the lungs bilaterally. 3. Degenerative changes and scoliosis of the thoracic spine. 4. Indeterminate area of decreased perfusion versus complex/solid lesion within the upper pole of the right kidney which will be described in more detail on the CT of the abdomen report done this same day. Koko Plasencia MD Abdomen/Pelvis CT 05/10/17 0000 Signed Impressions: Service Date/Time: Wednesday, May 10, 2017 15:10 - CONCLUSION: 1. Area of decreased perfusion versus complex/solid mass within the upper pole of the right kidney measuring 2.5 x 2.1 cm which is nonspecific. Outpatient PET/CT scan maybe helpful for further evaluation if clinically indicated. 2. Uncomplicated colonic diverticulosis. 3. Degenerative changes and scoliosis of the thoraco-lumbar spine. 4. 1 cm left renal cyst. 5. Enlarging cavitary left lower lobe mass which invades the posterior chest wall and erodes the adjacent ribs which is described in detail in the CT of the chest report done the same day. Koko Plasencia MD Objective Remarks awake and alert, NAD anicteric lungs decreased breath sounds left, no wheezes regular rhtyhma bdomen- soft, mild tenderness on deep palpation of left lower quadrant area extremities no edema A/P Assessment and Plan 77-year-old female with underlying breast cancer/lung cancer COPD hypertension complaining of fever low-grade fever and generalized weakness with marked leukocytosis SIRS likely secondary to cavitary lung lesion/malignant process underlying Leukocytosis from infection and from malignancy Continue IV zosyn/Vancomycin. - ID consult We'll follow cultures urine and blood. 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 Discussed advance directives. Pedro Voss MD May 11, 2017 11:49
[2017-05-11] MEDS: ANASTROZOLE 1 MG TAB PO SCH (12:04)
[2017-05-11 12:10] VITALS: BP 126/57; PULSE 62; RESP 21; TEMP 99.3; O2SAT 96
[2017-05-11] MEDS ORDERED: PIPERACIL-TAZO 3.375 GM PREMIX 50 ML IV SCH (13:00)
[2017-05-11] MEDS ORDERED: Vancomycin Consult Pharmacy 1 EA OTHER SCH (14:30)
[2017-05-11] MEDS ORDERED: VANCOMYCIN INJ 1,000 MG in SODIUM CHLOR 0.9% 250 ML INJ 250 ML IV SCH (14:30)
[2017-05-11 15:20] VITALS: BP 141/66; PULSE 71; RESP 18; TEMP 100.1; O2SAT 95
[2017-05-11 15:27] LABS: AUTOMATED NEUTROPHIL # 23.6 TH/MM3 (1.8-7.7); BASOPHIL # 0.1 TH/MM3 (0-0.2); BASOPHIL % 0.4 % (0.0-2.0); EOSINOPHIL # 0.2 TH/MM3 (0-0.4); EOSINOPHIL % 0.9 % (0.0-4.0); HEMATOCRIT 30.8 % (35.0-46.0); HEMO FLAGS DIFF FINAL; LYMPH % 2.8 % (9.0-44.0); LYMPHOCYTE # 0.7 TH/MM3 (1.0-4.8); MEAN CELL VOLUME 86.2 FL (80.0-100.0); MEAN CORPUSCULAR HEMOGLOBIN 28.9 PG (27.0-34.0); MEAN CORPUSCULAR HGB CONC 33.5 % (32.0-36.0); MONO % 3.8 % (0.0-8.0); NEUT % 92.1 % (16.0-70.0); PLATELET COUNT 198 TH/MM3 (150-450); RED BLOOD COUNT 3.57 MIL/MM3 (4.00-5.30); RED CELL DISTRIBUTION WIDTH 14.6 % (11.6-17.2); WHITE BLOOD COUNT 25.6 TH/MM3 (4.0-11.0)
[2017-05-11] MEDS ORDERED: VANCOMYCIN 1,000 MG/NS 250 ML IV SCH ×2 (16:00)
[2017-05-11 16:19] LABS: ALKALINE PHOSPHATASE 80 U/L (45-117); ALT (GPT) 25 U/L (10-53); ANION GAP 8 MEQ/L (5-15); AST (GOT) 26 U/L (15-37); BICARBONATE 24.7 MEQ/L (21.0-32.0); BLOOD UREA NITROGEN 10 MG/DL (7-18); CHLORIDE 100 MEQ/L (98-107); GLOMERULAR FILTRATION RATE 89 ML/MIN (>89); POTASSIUM 3.7 MEQ/L (3.5-5.1); SODIUM (NA) 133 MEQ/L (136-145); TOTAL BILIRUBIN ADULT 0.6 MG/DL (0.2-1.0)
--- NOTE | 2017-05-11 17:58 | PD.CONS ---
History of Present Illness Service Infectious disease Consult Requested By Dr Otto Voss Reason for Consult Evaluate patient with leukocytosis Primary Care Physician Zia Syed MD Diagnoses: History of Present Illness Patient seen and examined. Records reviewed. Patient is a 77-year-old female, with known breast cancer, had undergone mastectomy last year, refuses to have hormonal treatment and radiation, presented to the hospital complaining of back pain. The back pain was present since December, and it progressively worsened. She eventually ended up being hospitalized in February and she was found to have a left lower lobe cavitary mass. 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 She was discharged on pain medication, and apparently started having worsening of her pain in the last week. She has been very weak, and had poor by mouth intake. Her sister tried to convince her to go multiple times and finally patient agreed to come to the hospital. There's been no mention of fever or chills. Her initial WBC was 28,000. CT of the chest revealed an enlarging left lower lobe cavitary mass invading posteriorly and into the adjacent ribs. Patient was also noted to be very confused, and having episodes of hallucinations. There's been no nausea or vomiting. No diarrhea. She denies any dysuria. She denies any cough or any respiratory symptoms. Infectious disease consultation has been requested to evaluate the patient for leukocytosis. Review of Systems Constitutional: COMPLAINS OF: Weight loss, DENIES: Fever, Chills Eyes: DENIES: Eye pain Ears, nose, mouth, throat: DENIES: Oral lesions, Throat pain Respiratory: DENIES: Cough, Shortness of breath Cardiovascular: DENIES: Chest pain, Palpitations, Syncope Gastrointestinal: DENIES: Abdominal pain, Constipation, Diarrhea, Nausea, Vomiting Genitourinary: DENIES: Urgency, Dysuria Musculoskeletal: COMPLAINS OF: Back pain, DENIES: Joint pain Integumentary: DENIES: Rash Neurologic: DENIES: Headache Psychiatric: COMPLAINS OF: Confusion, Hallucinations Past Family Social History Allergies: Coded Allergies: No Known Allergies (Unverified , 05/10/17) Past Medical History Breast cancer status post left mastectomy in January 2016 Patient refused follow-up treatment with tamoxifen and radiation. 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 History of hypertension History of COPD Past Surgical History Left mastectomy Lung biopsies Active Ordered Medications Norvasc Arimidex Fentanyl Dilaudid Lopressor Oxycodone Triamterene Zosyn Potassium Ling-Colace Vancomycin Social History Patient [id number] smoking still smokes 5-6 sticks No alcohol abuse No substance abuse Lives alone Physical Exam Vital Signs Vital Signs Date Time Temp Pulse Resp B/P Pulse Ox O2 Delivery O2 Flow Rate FiO2 05/11/17 15:20 100.1 71 18 141/66 95 05/11/17 12:10 99.3 62 21 126/57 96 05/11/17 08:20 98.9 65 21 123/59 97 05/11/17 06:40 99.5 69 18 117/59 98 05/11/17 00:00 99.0 68 18 140/78 96 05/10/17 19:41 90 20 138/62 94 Nasal Cannula 2 05/10/17 19:25 20 05/10/17 19:25 20 Physical Exam GENERAL: Patient is a well-nourished, well-developed CF, awakens easily and answered all my questions, not in respiratory distress. SKIN: Warm and dry. No generalized rash, no ecchymoses and no evidence of embolic lesions. HEAD: Atraumatic. Normocephalic. No temporal wasting, or tenderness. EYES: [place] conjunctiva. No petechia or hemorrhage. Pupils equal, round and reactive to light. Extraocular movements full and intact. No scleral icterus. No injection or drainage. EARS, NOSE AND THROAT: Nose without bleeding or purulent nasal discharge. No sinus tenderness. Mucous membranes pink and moist. No oral lesions noted. No exudate. No oral thrush. NECK: Trachea midline. Supple and not tender, no meningeal signs CARDIOVASCULAR: Regular rate and rhythm. No murmurs, rubs or gallops heard RESPIRATORY: Clear to auscultation. Breath sounds equal bilaterally. No rales , wheezing or rhonchi ABDOMEN: Soft, nondistended, with mild diffuse tenderness. Bowel sounds present and normoactive. No guarding. No rebound. No organomegaly. EXTREMITIES: No clubbing, cyanosis, or edema.No joint effusion, has good ROM. No calf tenderness. Well perfused and warm. NEUROLOGICAL: Awakens easily, and alert. Cranial nerves grossly intact. Motor grossly within normal limits. PSYCHIATRIC: Normal affect, calm and cooperative. LINE: No evidence of infection Laboratory Laboratory Tests Test 05/11/17 14:49 White Blood Count 25.6 Red Blood Count 3.57 Hemoglobin 10.3 Hematocrit 30.8 Mean Corpuscular Volume 86.2 Mean Corpuscular Hemoglobin 28.9 Mean Corpuscular Hemoglobin 33.5 Concent Red Cell Distribution Width 14.6 Platelet Count 198 Mean Platelet Volume 7.6 Neutrophils (%) (Auto) 92.1 Lymphocytes (%) (Auto) 2.8 Monocytes (%) (Auto) 3.8 Eosinophils (%) (Auto) 0.9 Basophils (%) (Auto) 0.4 Neutrophils # (Auto) 23.6 Lymphocytes # (Auto) 0.7 Monocytes # (Auto) 1.0 Eosinophils # (Auto) 0.2 Basophils # (Auto) 0.1 CBC Comment DIFF FINAL Differential Comment Sodium Level 133 Potassium Level 3.7 Chloride Level 100 Carbon Dioxide Level 24.7 Anion Gap 8 Blood Urea Nitrogen 10 Creatinine 0.65 Estimat Glomerular Filtration 89 Rate Random Glucose 252 Calcium Level 9.0 Total Bilirubin 0.6 Aspartate Amino Transf 26 (AST/SGOT) Alanine Aminotransferase 25 (ALT/SGPT) Alkaline Phosphatase 80 Total Protein 4.9 Albumin 1.8 Date/Time Procedure Status Source Growth 05/10/17 14:40 Urine Culture - Preliminary Resulted Urine Catheterized Urine NO GROWTH IN 24 HOURS. 05/10/17 14:10 Aerobic Blood Culture - Preliminary Resulted Blood Peripheral NO GROWTH IN 1 DAY 05/10/17 14:10 Anaerobic Blood Culture - Preliminary Resulted Blood Peripheral NO GROWTH IN 1 DAY Result Diagram: 05/11/17 1449 05/11/17 1449 Imaging RADIOLOGY STUDIES/FILMS REVIEWED Head CT 05/10/17 1347 Signed Impressions: Service Date/Time: Wednesday, May 10, 2017 15:06 - CONCLUSION: No acute disease. Koko Plasencia MD Chest X-Ray 05/10/17 1347 Signed Impressions: Service Date/Time: Wednesday, May 10, 2017 14:10 - CONCLUSION: 1. Redemonstration of large left lower lobe cavitary mass similar to recent CT exam. 2. Otherwise, no acute abnormality. Constantin Erickson MD Chest CT 05/10/17 0000 Signed Impressions: Service Date/Time: Wednesday, May 10, 2017 15:10 - CONCLUSION: 1. Interval worsening cavitary mass within the left lower lobe which now extends through the posterior chest wall and results in extensive lytic destruction of the adjacent posterior ribs. This measures 8.7 x 6.9 cm in greatest dimension. This is consistent with neoplasm. There is also enlargement of the right paratracheal and subcarinal mediastinal as well as left hilar lymphadenopathy which appear necrotic. 2. Underlying emphysematous changes within the lungs bilaterally. 3. Degenerative changes and scoliosis of the thoracic spine. 4. Indeterminate area of decreased perfusion versus complex/solid lesion within the upper pole of the right kidney which will be described in more detail on the CT of the abdomen report done this same day. Koko Plasencia MD Abdomen/Pelvis CT 05/10/17 0000 Signed Impressions: Service Date/Time: Wednesday, May 10, 2017 15:10 - CONCLUSION: 1. Area of decreased perfusion versus complex/solid mass within the upper pole of the right kidney measuring 2.5 x 2.1 cm which is nonspecific. Outpatient PET/CT scan maybe helpful for further evaluation if clinically indicated. 2. Uncomplicated colonic diverticulosis. 3. Degenerative changes and scoliosis of the thoraco-lumbar spine. 4. 1 cm left renal cyst. 5. Enlarging cavitary left lower lobe mass which invades the posterior chest wall and erodes the adjacent ribs which is described in detail in the CT of the chest report done the same day. Koko Plasencia MD Assessment and Plan Assessment and Plan IMPRESSION Leukocytosis, etiology? - no obvious source of infection - no clinicall evidence of PNA, UA ok - ?bacteremia, but she clinically looks good - likely due to her malignancy Breast CA with mets to lung, enlarging and invading ribs Increasing back pain due to enlarging lung mass and into ribs R kidney mass, etiology? Confusion, ?due to meds, prvious brain MRI ok RECOMMENDATION Stop vancomycin Stop Zosyn Will use IV cefepime for now, to cover some gram positives and gram negative - If blood cultures are negative then I would stop cefepime If she continues to have hallucinations, consider doing another brain MRI to evaluate for metastases Pain control Follow temps, fevers could still be due to her malignancy, and tumor necrosis Monitor progress I will follow along with you, and decide need for further antibiotic therapy Thank you for this consultation Discussed Condition With Discussed with the nurse Explained plan to the patient's sister, and answered all her questions Viry Lopez MD 13, 2017 17:58
[2017-05-11] MEDS: CEFEPIME INJ 1,000 MG in SODIUM CHLORIDE 0.9% INJ 100 ML IV SCH ×2 (18:00→20:31)
[2017-05-11] MEDS: QUEtiapine FUMARATE 25 MG TAB PO SCH ×2 (18:15→20:23)
[2017-05-11] MEDS ORDERED: PILL SPLITTER OTHER PRN (18:30)
[2017-05-11 20:00] VITALS: BP 126/72; PULSE 93; RESP 16; TEMP 99.5; O2SAT 93
[2017-05-11] MEDS: HYDROmorphone HCL PF 1 MG/ML VIAL IV PUSH PRN (23:09)
[2017-05-12 00:01] VITALS: BP 102/59; PULSE 70; RESP 16; TEMP 99.3; O2SAT 92
[2017-05-12 04:00] VITALS: BP 107/67; PULSE 84; RESP 16; TEMP 99.4; O2SAT 99
[2017-05-12] MEDS: HYDROmorphone HCL PF 1 MG/ML VIAL IV PUSH PRN (04:42)
[2017-05-12] MEDS: D5-NS + KCL 20 MEQ INJ 1,000 ML IV SCH ×2 (06:09→18:31)
[2017-05-12] MEDS: CEFEPIME INJ 1,000 MG in SODIUM CHLORIDE 0.9% INJ 100 ML IV SCH ×3 (06:10→18:31)
--- NOTE | 2017-05-12 06:23 | MB ---
cc: MAIDA DURAN DATE OF 1940. DATE OF CONSULTATION May 11, 2017 REASON FOR CONSULTATION Patient with metastatic breast cancer who presents to the hospital with intractable pain and altered sensorium and hallucinations. HISTORY OF PRESENT ILLNESS Ms. Bronw is a 77-year-old female who has a diagnosis of Stage IV breast cancer. She is currently on hormone blockade therapy. The patient was originally diagnosed with breast cancer in 2016. She was found to have an abnormality on a routine screening mammogram. Biopsy confirmed invasive cancer in the left breast and she underwent mastectomy. She has sentinel lymph node biopsy and 0/3 sentinel lymph nodes were positive for malignancy. Margins were uninvolved. Pathological staging was pT1b pN0 pMx. The patient subsequently declined further evaluation by Radiation and Medical Oncology and did not receive any adjuvant radiation treatment or adjuvant hormonal blockade therapy. In March of 2017 she presented to the emergency department with complaints of left flank pain. She was found to be hypercalcemic. CT imaging of the chest revealed a cavitary mass in the left lower lobe. She underwent biopsy which confirmed metastatic adenocarcinoma consistent with breast primary. This was ER-positive disease. The patient was then evaluated in the oncology clinic recently and was started on hormone blockade therapy with anastrozole. She had significant pain in her left chest wall and she was given the Fentanyl patch in addition to p.r.n. oxycodone. The case was discussed with Radiation Oncology and it was thought that she would benefit from palliative radiation treatments to the chest wall. Due to diagnosis of metastatic disease to the bone, she was in the process of getting scheduled for bone directed therapy. The patient now presents to the emergency room with increasing pain and hallucinations. The patient has been combative and agitated at home. Her sister states that she resisted coming to the hospital and has not been compliant with taking her medications at home. The patient currently remains agitated. She states that she keeps on getting different tests and she does not want to be charged for these tests. At one point she indicated that she wants to go home but then she reiterated that she would like to receive aggressive treatment. She has not had any headaches, but she does experience some nausea. She denies any chest pain. No shortness of breath. No abdominal pain. No lower extremity edema or pain. She is anorexic and has had good oral intake. Her ECOG performance status is 1. REVIEW OF SYSTEMS A comprehensive 14-point review of systems was completed which is negative except as described in the HPI. PAST MEDICAL HISTORY 1. Stage IV breast cancer. 2. COPD. 3. Hypertension. PAST SURGICAL HISTORY 1. Breast biopsy. 2. Lung biopsy. 3. Mastectomy of left breast. 4. 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 FAMILY HISTORY Reviewed and noncontributory to this admission. SOCIAL HISTORY She is single. She is retired. She has a 50 pack-year smoking history. She does not drink alcohol. MEDICATIONS 1. Cefepime 1 gram IV q.12 hours. 2. Dilaudid 0.5 mg IV q.4 hours p.r.n. pain. 3. Anastrozole 1 mg p.o. daily. 4. Remeron 15 mg p.o. daily. 5. Metoprolol 100 mg p.o. daily. 6. Amlodipine 5 mg p.o. daily. 7. Senna 2 tablets p.o. b.i.d. 8. Roxicodone 5 mg p.o. q.4 hours p.r.n. 9. Duragesic one patch q.72 hours. ALLERGIES No known drug allergies. PHYSICAL EXAMINATION VITAL SIGNS: Blood pressure is 126/72, pulse is in the 90s, temperature is 99.5, respiratory rate is 16, O2 sats are 93% on room air. GENERAL: Elderly female in no apparent distress, agitated. HEENT: Pupils are equal, round, reactive to light. EOMI. No oral thrush. No oral lesions. NECK: Supple. No JVD, no bruits, no lymphadenopathy. CHEST: Clear to auscultation bilaterally. CARDIAC: S1, S2. Regular rate and rhythm. ABDOMEN: Soft, nontender, nondistended. Bowel sounds are present. EXTREMITIES: Without any edema, erythema or cyanosis. SKIN: Without any petechiae, lesion or bruises. NEURO: No focal deficits. PSYCHIATRIC: Mood and affect is appropriate. IMAGING STUDIES She had a CT of the chest on admission which showed interval worsening of the cavitary mass within the left lower lobe and extending into the posterior chest wall resulting in extensive lytic destruction of the adjacent posterior ribs. This measures 8.7 x 6.9 cm in greatest dimension. There is enlargement of the right paratracheal and subcarinal mediastinal as a left hilar lymphadenopathy which appears necrotic. There is an indeterminate area of decreased perfusion versus complex solid lesion in the upper pole of the right kidney. CT of the abdomen and pelvis does not show any additional findings except as stated above. CT of the head was completed which did not show any abnormalities. CT was completed without contrast. ASSESSMENT AND PLAN This is a 77-year-old female with a diagnosis of Stage IV breast cancer who is currently on hormonal blockade therapy. She presents to the emergency department with uncontrolled pain and altered mental status with hallucinations as well as agitation. 1. Altered mental status with hallucinations. This could possibly be due to the pain medications. She was recently started on Fentanyl patch which may be causing her to altered sensorium. However, given the presence of extensive metastatic disease in the lungs, there is a possibility of brain mets. We will obtain an MRI of the brain with contrast to assess for any metastatic disease. She has significant erosion of the chest wall the cancer. I have discussed this case with Dr. Yuen. This patient would benefit from palliative radiation treatments to the chest wall. The patient is agitated at this time. I had a long conversation with her and with her sister. I also spoke with her daughter over the phone. Initially she stated that she would not like to have any type of testing done and she would like to go home because she wants to smoke cigarettes. Then she stated that she wanted aggressive treatment. She kept asking me when she would be discharged from the hospital because she cannot spend another day in the hospital without cigarettes. I explained to her that we need to assess the cause of her encephalopathy and also to get her pain under control. This will take several days. I also discussed the possibility of palliative care and hospice with the patient and she specifically told me that she does not want to pursue this path. However, she agreed to speak with Palliative Care to assess goals of care. Her sister and daughter agreed with this. I explained to them that Stage IV breast cancer is a treatable condition, however, is not curable. Generally patients with breast cancer can be treated with hormone blockade therapy and another oral agent and can achieve good disease control. I explained to her that the goals of treatment is to control the disease, minimize toxicity and to preserve the quality of life. 2. Altered mental status/encephalpathy/agitation. Rule out underlying causes such as medication effect, infection, brain mets, etx. 3. Pain control. Continue fentanyl patch and p.r.n. oxycodone. 4. Leukocytosis most likely reactive but we will rule out any underlying infection. I agree with IV antibiotics. Follow blood cultures. Follow urine cultures. Thank you for allowing me to participate in the care of this patient. I will continue to follow this patient along. MD JEANETH Puente/FRANCISCO /1:36 AM /6:03 AM
[2017-05-12 07:50] VITALS: BP 113/75; PULSE 78; RESP 20; TEMP 98.4; O2SAT 95
[2017-05-12 08:08] LABS: AUTOMATED NEUTROPHIL # 15.1 TH/MM3 (1.8-7.7); BASOPHIL % 0.2 % (0.0-2.0); EOSINOPHIL # 0.2 TH/MM3 (0-0.4); EOSINOPHIL % 0.9 % (0.0-4.0); HEMATOCRIT 27.8 % (35.0-46.0); HEMO FLAGS DIFF FINAL; LYMPH % 5.6 % (9.0-44.0); MEAN CELL VOLUME 85.4 FL (80.0-100.0); MEAN CORPUSCULAR HEMOGLOBIN 28.6 PG (27.0-34.0); MEAN CORPUSCULAR HGB CONC 33.5 % (32.0-36.0); MONO % 4.4 % (0.0-8.0); NEUT % 88.9 % (16.0-70.0); PLATELET COUNT 188 TH/MM3 (150-450); RED BLOOD COUNT 3.26 MIL/MM3 (4.00-5.30); RED CELL DISTRIBUTION WIDTH 14.6 % (11.6-17.2)
[2017-05-12] MEDS: amLODIPine BESYLATE 5 MG TAB PO SCH (08:19)
[2017-05-12] MEDS: MIRTAZAPINE 15 MG TAB PO SCH (08:19)
[2017-05-12] MEDS: DOCUSATE SODIUM 50 MG/SENNA 8.6 MG TAB PO SCH ×2 (08:19→20:32)
[2017-05-12] MEDS: METOPROLOL SUCCINATE 50 MG EXTENDED RELEASE TAB PO SCH (08:19)
[2017-05-12] MEDS: QUEtiapine FUMARATE 25 MG TAB PO SCH ×2 (08:21→20:33)
[2017-05-12 08:28] LABS: BICARBONATE 25.2 MEQ/L (21.0-32.0)
[2017-05-12] MEDS: TRIAMTERENE 25 MG PO SCH (09:00)
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
--- NOTE | 2017-05-12 09:42 | HHI.PR ---
Subjective Remarks last night- very agitated- calling 911 trying to climb out of bed this am, pleasantly confused, cooperative on exam' Objective Vitals Vital Signs Date Time Temp Pulse Resp B/P Pulse Ox O2 Delivery O2 Flow Rate FiO2 05/12/17 05:10 16 05/12/17 04:00 99.4 84 16 107/67 99 05/12/17 00:01 99.3 70 16 102/59 92 05/11/17 20:00 99.5 93 16 126/72 93 05/11/17 15:20 100.1 71 18 141/66 95 05/11/17 12:10 99.3 62 21 126/57 96 I/O 05/11/17 05/11/17 05/11/17 05/12/17 05/12/17 05/12/17 07:00 15:00 23:00 07:00 15:00 23:00 Intake Total 1191 ml Output Total 900 ml 400 ml 1125 ml Balance -900 ml -400 ml 66 ml Intake Oral 35 ml IV Total 1156 ml Output Urine Total 900 ml 400 ml 1125 ml # Bowel Movements 0 0 0 Result Diagram: 05/12/17 0654 05/12/17 0654 Imaging Last Impressions Head CT 05/10/17 1347 Signed Impressions: Service Date/Time: Wednesday, May 10, 2017 15:06 - CONCLUSION: No acute disease. Koko Plasencia MD Chest X-Ray 05/10/177 Signed Impressions: Service Date/Time: Wednesday, May 10, 2017 14:10 - CONCLUSION: 1. Redemonstration of large left lower lobe cavitary mass similar to recent CT exam. 2. Otherwise, no acute abnormality. Constantin Erickson MD Chest CT 05/10/17 0000 Signed Impressions: Service Date/Time: Wednesday, May 10, 2017 15:10 - CONCLUSION: 1. Interval worsening cavitary mass within the left lower lobe which now extends through the posterior chest wall and results in extensive lytic destruction of the adjacent posterior ribs. This measures 8.7 x 6.9 cm in greatest dimension. This is consistent with neoplasm. There is also enlargement of the right paratracheal and subcarinal mediastinal as well as left hilar lymphadenopathy which appear necrotic. 2. Underlying emphysematous changes within the lungs bilaterally. 3. Degenerative changes and scoliosis of the thoracic spine. 4. Indeterminate area of decreased perfusion versus complex/solid lesion within the upper pole of the right kidney which will be described in more detail on the CT of the abdomen report done this same day. Koko Plasencia MD Abdomen/Pelvis CT 05/10/17 0000 Signed Impressions: Service Date/Time: Wednesday, May 10, 2017 15:10 - CONCLUSION: 1. Area of decreased perfusion versus complex/solid mass within the upper pole of the right kidney measuring 2.5 x 2.1 cm which is nonspecific. Outpatient PET/CT scan maybe helpful for further evaluation if clinically indicated. 2. Uncomplicated colonic diverticulosis. 3. Degenerative changes and scoliosis of the thoraco-lumbar spine. 4. 1 cm left renal cyst. 5. Enlarging cavitary left lower lobe mass which invades the posterior chest wall and erodes the adjacent ribs which is described in detail in the CT of the chest report done the same day. Koko Plasencia MD Objective Remarks awake and alert, NAD, confused anicteric lungs decreased breath sounds left, no wheezes regular rhythm abdomen- soft, nontender, good bowel sounds moves all extreities spontaenou extremities no edema A/P Assessment and Plan 77-year-old female with underlying breast cancer/lung cancer COPD hypertension complaining of fever low-grade fever and generalized weakness with marked leukocytosis SIRS likely secondary to cavitary lung lesion/malignant process underlying Leukocytosis from infection and from malignancy ID- ff- started on Cefepime We'll follow cultures urine and blood. 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 recheck in am Lovenox for DVT prophylaxis Discussed with patient and daughter. Discussed advance directives. Hopefully transfer to med psych today - Awaiting Psychiatry Pedro Combs MD May 12, 2017 09:42
--- NOTE | 2017-05-12 10:59 | PD.CONS ---
Consult Service Palliative Care . Consult Requested By Dr. Syed . Primary Care Physician Zia Syed MD . Reason for Consultation a. To assist with evaluation and management of symptoms including: pain, generalized weakness, confusion, decreased appetite b. To assist medical decision maker(s) with: better understanding of current medical conditions; weighing benefits/burdens of medical treatment options; making medical treatment decisions. . HPI History of Present Illness Ms. Brown is a 77-year-old female with stage IV metastatic cancer who presented to [facility] ED on 05/10/2017 for evaluation of altered mental status. Dr. Syed is her oncologist. The patient's sister was visiting from [place] and noticed the patient had declined over a 4 day period. The sister reported the patient was increasingly confused and having hallucinations; the sister also noticed patient had not been eating or drinking well. Upon arrival the patient was lethargic but able to answer some questions appropriately. She was febrile, reporting LUQ abdominal and chest wall pain. The patient's past medical history is also significant for chronic back pain, hypertension and COPD. The patient was originally diagnosed with breast cancer in 2015 after a routine screening mammogram detected an abnormality. The patient underwent a left mastectomy after a biopsy definitively diagnosed invasive breast cancer. The patient subsequently declined further evaluation/ treatment with radiation and medical oncology. In Mar, [address] of the chest revealed a cavitary mass in the left lower lobe. The patient underwent a biopsy which confirmed metastatic adenocarcinoma consistent with breast primary - ER positive disease. The patient was evaluated in the oncology clinic and was started on hormone blockade therapy with an anastrozole. Issue diagnostic findings in the ED include: * Vital signs: Pulse 89, respirations 11, BP 149/76, oxygen saturation 99% on 2 L via nasal cannula, rectal temperature 100.0 * WBC: 20.7, hemoglobin 11.3, hematocrit 35.0, platelets 224, neutrophils 93.4% * Sodium: 133, potassium 3.8, chloride 97, carbon dioxide 27.4, glucose 237, calcium 9.7 * BUN: 25, creatinine 0.83, GFR 67 * Total bilirubin: 0.7, AST 35, ALT 30, alkaline phosphatase 71 * Troponin: 0.09 * Total protein: 5.5, albumin 2.3 * TSH third-generation: 0.412 * PT: 10.8, INR 1.0 * Urinalysis indicative of UTI-urine culture negative at 24 hours * Blood culture-preliminary results negative after 1 day * CT chest revealed interval worsening cavitary mass within the left lower lobe , there is enlargement of the right paratracheal and subcarinal mediastinal as well as left hilar lymphadenopathy which appears necrotic; underlying emphysematous changes within the lungs bilaterally. * CT abdomen/pelvis showed an area of decreased perfusion versus complex/solid mass within the upper pole of the right kidney measuring 2.5 x 2.1 cm which is non- specific (outpatient PET/CT scan recommended); uncomplicated colonic diverticulosis; generative changes and scoliosis of the thoraco-lumbar spine; 1 cm left renal cyst; enlarging cavitary left lower lobe mass which invades the posterior chest wall and erodes the adjacent ribs. * CT brain showed no acute disease. * Chest x-ray read demonstrated a large left lower lobe cavitary mass, similar to recent CT exam. * EKG: Sinus rhythm with non-specific ST segment depression Lab work was spacious for sepsis with extreme leukocytosis; urinalysis was questionable for UTI. The patient was started on broad-spectrum IV antibiotics and received 2L IV fluid bolus. Imaging of the patient's chest, abdomen and pelvis suggested a large cavitary lesion in the left lower lobe of the lung that is eroding the chest wall likely metastatic in nature. There was also a questionable lesion in the left lower lobe of the kidney. The patient was admitted for further evaluation and medical management of sepsis/UTI and cavitary lung mass. The patient is complaining of increasing pain in her lower back. She states her appetite is poor, having progressively increased weakness. 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 The patient was recently started on Duragesic patch 25 g every 72 hours; Oxycodone 5 mg PO is available every 4 hour and Hydromorphone 0.5 mg IV is available every 4 hours PRN for breakthrough pain. Infectious disease was consulted and evaluated the patient for leukocytosis. There is no obvious source of infection at this time, white blood count trending downward. Vancomycin and Zosyn were discontinued. Patient was started on IV cefepime, will discontinue if blood cultures are negative. Radiation oncology and medical oncology are following. Patient is on total blockade therapy, anastrozole. Radiation oncology, Dr. Yuen, feels the patient may benefit from palliative radiation to the chest wall to control pain and prevent further bone damage/lung compromise. The patient's daughter indicating she would like to take the patient back to [place] to be treated at [facility] in [place]; she will arrive on to determine how to proceed. Palliative Care was consulted to assist with symptom management and to discuss with the patient/family the benefits and burdens of her current illnesses and the options regarding future care. . Function/Cognitive Trajectory The patient was originally diagnosed with breast cancer in 2015 after a routine screening mammogram detected an abnormality. The patient underwent a left mastectomy after a biopsy definitively diagnosed invasive breast cancer. The patient subsequently declined further evaluation/treatment with radiation and medical oncology. In Mar, [address] of the chest revealed a cavitary mass in the left lower lobe. The patient underwent a biopsy which confirmed metastatic adenocarcinoma consistent with breast primary- ER positive disease. The patient was evaluated in the oncology clinic and was started on hormone blockade therapy with an anastrozole. In the past week the patient has become increasingly confused, having hallucinations. Her appetite is poor and the patient has a reported weight loss of 15 pounds in the past 6 weeks. Recent imaging revealed disease progression; there is also concern for possible metastatic disease to the brain. An MRI with contrast is pending. Radiation oncology has been consulted and recommendations were made for palliative radiation to the chest wall. Review of Systems ROS Limitations: Clinical Condition, Altered Mental Status Constitutional: COMPLAINS OF: Fatigue, Weight loss (reported weight loss of 15 pounds in the past 6 weeks), Change in appetite (decreased appetite), Pain ( patient reporting lower back pain), Generalized weakness Endocrine: DENIES: Polydipsia, Polyuria, Polyphagia Eyes: DENIES: Blurred vision Ears, nose, mouth, throat: DENIES: Hearing loss Respiratory: DENIES: Shortness of breath Cardiovascular: DENIES: Dyspnea on Exertion, Lower Extremity Edema Gastrointestinal: COMPLAINS OF: Anorexia Musculoskeletal: COMPLAINS OF: Back pain Hematologic/Lymphatics: COMPLAINS OF: Bruising Psychiatric: COMPLAINS OF: Anxiety, Confusion, Hallucinations (visual hallucinations) Past Family Social History Coded Allergies: No Known Allergies (Unverified , 05/10/17) Past Medical History Breast cancer status post left mastectomy in January 2016 - patient refused follow -up treatment with tamoxifen and radiation. Chronic back pain Hypertension COPD Stage IV metastatic breast cancer . 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 Reported Medications Fentanyl Patch 72 HR (Fentanyl) 25 Mcg/Hr Patch 25 Mcg T-DERMAL Q72H Dyrenium (Triamterene) 50 Mg Cap 25 Mg PO DAILY Mirtazapine 15 Mg Tab 15 Mg PO DAILY Oxycodone (Oxycodone HCl) 5 Mg Cap 5 Mg PO QID Anastrozole 1 Mg Tab 1 Mg PO DAILY Metoprolol Succinate ER 24 HR (Metoprolol Succinate) 100 Mg Tab 100 Mg PO DAILY Amlodipine (Amlodipine Besylate) 5 Mg Tab 5 Mg PO DAILY . Current Medications Medications (Trade) Dose Ordered Sig/Bassem Route Start Time Stop Time Status Last Admin (NS Flush) 2 ml UNSCH PRN IV FLUSH 05/10/17 14:00 05/10/17 15:27 (Arimidex) 1 mg DAILY PO 05/11/17 09:00 05/11/17 12:04 (Remeron) 15 mg DAILY PO 05/11/17 09:00 05/12/17 08:19 (Ling-Colace) 2 tab BID PO 05/10/17 21:00 05/12/17 08:19 (Toprol Xl) 100 mg DAILY PO 05/11/17 09:00 05/12/17 08:19 Patient Own Medication PT OWN MED: Triamter... DAILY PO 05/11/17 09:00 (Duragesic 25 Mcg Patch.72 Hr) 1 patch Q72H T-DERMAL 05/10/17 18:00 05/10/17 18:08 Miscellaneous Information 1 Q72H T-DERMAL 05/10/17 18:00 05/10/17 18:09 (Norvasc) 5 mg DAILY PO 05/11/17 09:00 05/12/17 08:19 Oxycodone HCl 5 mg 5 mg Q4HR PRN PO 05/10/17 18:45 05/12/17 08:20 (D5-NS + KCl 20 Meq Inj) 1,000 ml @ 84 mls/hr [id number] IV 05/10/17 18:45 05/12/17 06:09 Hydromorphone HCl 0.5 mg 0.5 mg Q4H PRN IV PUSH 05/11/17 11:45 05/12/17 04:42 (Maxipime Inj/NS Inj) 100 ml @ 200 mls/hr Q12H IV 05/11/17 18:00 05/12/17 06:15 (SEROquel) 12.5 mg BID PO 05/11/17 18:15 05/12/17 08:21 (Pill Splitter) 1 ea UNSCH PRN OTHER 05/11/17 18:30 Family History Patient's mother from complications related to breast cancer. Her father from some type of gastric cancer. The patient's daughter is a breast cancer survivor. . Substance Use Tobacco: [id number] smoking history, active smoker Alcohol: Patient rarely consumes alcohol Prescription med abuse: None known Illicits: None known . Psychosocial History Ms. Brown is originally from [facility] but now lives in [place]. She has one sister (Rayne) who lives in [place]. The patient was for a short period of time, in the 1969. She has 2 adult children, a daughter ( Ranjana) and a son (Alfredo). Both of her children live in [place], [place]. She is currently estranged from her son. Patient worked in the [employer] industry for many years; she is now retired. The patient is single and lives alone in a condo in [place]. . Spiritual/Cultural Factors Nonreligious per sister. . Living Will: Never completed Health Care Surrogate: Never completed Durable Power of [employer] Equipment Erector: Never completed Documented care wishes: No written advanced directives were completed. . Today's verbally stated goals: Goals remain aggressive at this time. . Family/friends goals: Patient's daughter would like to move patient to [place] where she lives so the patient can receive aggressive treatment at the [facility]. . Ethical and Legal Issues No known ethical or legal issues at this time. . Physical Exam Vital Signs Date Time Temp Pulse Resp B/P Pulse Ox O2 Delivery O2 Flow Rate FiO2 05/12/17 07:50 98.4 78 20 113/75 95 05/12/17 05:10 16 05/12/17 04:00 99.4 84 16 107/67 99 05/12/17 00:01 99.3 70 16 102/59 92 05/11/17 20:00 99.5 93 16 126/72 93 05/11/17 15:20 100.1 71 18 141/66 95 05/11/17 12:10 99.3 62 21 126/57 96 . 05/11/17 05/12/17 19:00 07:00 Intake Total 1191 ml Output Total 400 ml 1125 ml Balance -400 ml 66 ml Intake Oral 35 ml IV Total 1156 ml Output Urine Total 400 ml 1125 ml # Bowel Movements 0 0 . Exam CONSTITUTIONAL/GENERAL: This is a frail, older patient in no apparent distress. TUBES/LINES/DRAINS: PIV 1, Stroud SKIN: No jaundice, rashes, or lesions. Ecchymoses on upper extremities. No wounds seen anteriorly. Skin temperature appropriate. Not diaphoretic. HEAD: Atraumatic. Normocephalic. EYES: Pupils equal and round and reactive. Extraocular motions intact. No scleral icterus. No injection or drainage. Fundi not examined. ENT: Hearing grossly normal. Nose without bleeding or purulent drainage. NECK: Trachea midline. CARDIOVASCULAR: Regular rate and rhythm without murmurs, gallops, or rubs. No JVD. Peripheral pulses symmetric. RESPIRATORY/CHEST: Symmetric, unlabored respirations. Clear to auscultation. Breath sounds equal bilaterally. No wheezes, rales, or rhonchi. GASTROINTESTINAL: Abdomen soft, non-tender, nondistended. Bowel sounds present. GENITOURINARY: Without palpable bladder distension. Stroud catheter in place. MUSCULOSKELETAL: Extremities without clubbing, cyanosis, or edema. LYMPHATICS: No palpable cervical or supraclavicular adenopathy. NEUROLOGICAL: Awake but intermittently confused, lethargic. Patient responds to simple questions with 1-2 word answers, speech it time is nonsensical. Patient follows commands. Moving all extremities. PSYCHIATRIC: Having visual hallucinations . Diagnostic Tests Laboratory Laboratory Tests Test 05/10/17 05/10/17 05/10/17 05/10/17 13:50 14:09 14:30 14:40 White Blood Count 28.7 TH/MM3 (4.0-11.0) Red Blood Count 4.05 MIL/MM3 (4.00-5.30) Hemoglobin 11.3 GM/DL (11.6-15.3) Hematocrit 35.0 % (35.0-46.0) Mean Corpuscular Volume 86.3 FL (80.0-100.0) Mean Corpuscular Hemoglobin 27.9 PG (27.0-34.0) Mean Corpuscular Hemoglobin 32.4 % Concent (32.0-36.0) Red Cell Distribution Width 14.6 % (11.6-17.2) Platelet Count 224 TH/MM3 (150-450) Mean Platelet Volume 7.4 FL (7.0-11.0) Neutrophils (%) (Auto) 93.4 % (16.0-70.0) Lymphocytes (%) (Auto) 2.0 % (9.0-44.0) Monocytes (%) (Auto) 4.2 % (0.0-8.0) Eosinophils (%) (Auto) 0.1 % (0.0-4.0) Basophils (%) (Auto) 0.3 % (0.0-2.0) Neutrophils # (Auto) 26.8 TH/MM3 (1.8-7.7) Lymphocytes # (Auto) 0.6 TH/MM3 (1.0-4.8) Monocytes # (Auto) 1.2 TH/MM3 (0-0.9) Eosinophils # (Auto) 0.0 TH/MM3 (0-0.4) Basophils # (Auto) 0.1 TH/MM3 (0-0.2) CBC Comment DIFF FINAL Differential Comment Prothrombin Time 10.8 SEC (9.8-11.6) Prothromb Time International 1.0 RATIO Ratio Sodium Level 133 MEQ/L (136-145) Potassium Level 3.8 MEQ/L (3.5-5.1) Chloride Level 97 MEQ/L (98-107) Carbon Dioxide Level 27.4 MEQ/L (21.0-32.0) Anion Gap 9 MEQ/L (5-15) Blood Urea Nitrogen 25 MG/DL (7-18) Creatinine 0.83 MG/DL (0.50-1.00) Estimat Glomerular Filtration 67 ML/MIN (>89) Rate Random Glucose 237 MG/DL (74-106) Calcium Level 9.7 MG/DL (8.5-10.1) Total Bilirubin 0.7 MG/DL (0.2-1.0) Aspartate Amino Transf 35 U/L (15-37) (AST/SGOT) Alanine Aminotransferase 30 U/L (10-53) (ALT/SGPT) Alkaline Phosphatase 71 U/L (45-117) Troponin I 0.09 NG/ML (0.02-0.05) Total Protein 5.5 GM/DL (6.4-8.2) Albumin 2.3 GM/DL (3.4-5.0) Thyroid Stimulating Hormone 0.412 uIU/ML 3rd Gen (0.358-3.740) Lactic Acid Level 1.7 mmol/L (0.4-2.0) Ammonia 12 MCMOL/L (11-32) Blood Gas Puncture Site RT RADIAL Blood Gas Patient Temperature 98.6 Blood Gas HCO3 26 mmol/L (22-26) Blood Gas Base Excess 2.8 mmol/L (-2-2) Blood Gas Oxygen Saturation 96 % (90-100) Arterial Blood pH 7.47 (7.380-7.420) Arterial Blood Partial 37 mmHg (38-42) Pressure CO2 Arterial Blood Partial 95 mmHG Pressure O2 (61-120) Arterial Blood Oxygen Content 15.0 Vol % (12.0-20.0) Arterial Blood 1.7 % (0-4) Carboxyhemoglobin Arterial Blood Methemoglobin 0.6 % (0-2) Blood Gas Hemoglobin 11.0 G/DL (12.0-16.0) Oxygen Delivery Device NASAL CANNULA Blood Gas Liter Flow 2.5 L/M Urine Color YELLOW (YELLW/STRAW) Urine Turbidity CLEAR (CLEAR) Urine pH 6.0 (5.0-8.5) Urine Specific Conrad 1.019 (1.002-1.035) Urine Protein 30 mg/dL (NEG-TRACE) Urine Glucose (UA) 150 mg/dL (NEG) Urine Ketones NEG mg/dL (NEG) Urine Occult Blood NEG (NEG) Urine Nitrite NEG (NEG) Urine Bilirubin NEG (NEG) Urine Urobilinogen LESS THAN 2.0 MG/DL (LESS THAN 2.0) Urine Leukocyte Esterase MOD (NEG) Urine RBC 6 /hpf (0-3) Urine WBC 5 /hpf (0-5) Urine Squamous Epithelial 1 /hpf (0-5) Cells Urine Bacteria OCC /hpf (NONE) Urine Mucus FEW /lpf (OCC) Microscopic Urinalysis Comment CATH-CULTURE IND Test 05/11/17 05/11/17 05/12/17 14:49 19:25 06:54 White Blood Count 25.6 TH/MM3 17.0 TH/MM3 (4.0-11.0) (4.0-11.0) Red Blood Count 3.57 MIL/MM3 3.26 MIL/MM3 (4.00-5.30) (4.00-5.30) Hemoglobin 10.3 GM/DL 9.3 GM/DL (11.6-15.3) (11.6-15.3) Hematocrit 30.8 % 27.8 % (35.0-46.0) (35.0-46.0) Mean Corpuscular Volume 86.2 FL 85.4 FL (80.0-100.0) (80.0-100.0) Mean Corpuscular Hemoglobin 28.9 PG 28.6 PG (27.0-34.0) (27.0-34.0) Mean Corpuscular Hemoglobin 33.5 % 33.5 % Concent (32.0-36.0) (32.0-36.0) Red Cell Distribution Width 14.6 % 14.6 % (11.6-17.2) (11.6-17.2) Platelet Count 198 TH/MM3 188 TH/MM3 (150-450) (150-450) Mean Platelet Volume 7.6 FL 7.5 FL (7.0-11.0) (7.0-11.0) Neutrophils (%) (Auto) 92.1 % 88.9 % (16.0-70.0) (16.0-70.0) Lymphocytes (%) (Auto) 2.8 % 5.6 % (9.0-44.0) (9.0-44.0) Monocytes (%) (Auto) 3.8 % (0.0-8.0) 4.4 % (0.0-8.0) Eosinophils (%) (Auto) 0.9 % (0.0-4.0) 0.9 % (0.0-4.0) Basophils (%) (Auto) 0.4 % (0.0-2.0) 0.2 % (0.0-2.0) Neutrophils # (Auto) 23.6 TH/MM3 15.1 TH/MM3 (1.8-7.7) (1.8-7.7) Lymphocytes # (Auto) 0.7 TH/MM3 1.0 TH/MM3 (1.0-4.8) (1.0-4.8) Monocytes # (Auto) 1.0 TH/MM3 0.7 TH/MM3 (0-0.9) (0-0.9) Eosinophils # (Auto) 0.2 TH/MM3 0.2 TH/MM3 (0-0.4) (0-0.4) Basophils # (Auto) 0.1 TH/MM3 0.0 TH/MM3 (0-0.2) (0-0.2) CBC Comment DIFF FINAL DIFF FINAL Differential Comment Sodium Level 133 MEQ/L 137 MEQ/L (136-145) (136-145) Potassium Level 3.7 MEQ/L 3.0 MEQ/L (3.5-5.1) (3.5-5.1) Chloride Level 100 MEQ/L 101 MEQ/L (98-107) (98-107) Carbon Dioxide Level 24.7 MEQ/L 25.2 MEQ/L (21.0-32.0) (21.0-32.0) Anion Gap 8 MEQ/L (5-15) 11 MEQ/L (5-15) Blood Urea Nitrogen 10 MG/DL (7-18) 7 MG/DL (7-18) Creatinine 0.65 MG/DL 0.48 MG/DL (0.50-1.00) (0.50-1.00) Estimat Glomerular Filtration 89 ML/MIN (>89) 126 ML/MIN Rate (>89) Random Glucose 252 MG/DL 162 MG/DL (74-106) (74-106) Calcium Level 9.0 MG/DL 9.0 MG/DL (8.5-10.1) (8.5-10.1) Total Bilirubin 0.6 MG/DL (0.2-1.0) Aspartate Amino Transf 26 U/L (15-37) (AST/SGOT) Alanine Aminotransferase 25 U/L (10-53) (ALT/SGPT) Alkaline Phosphatase 80 U/L (45-117) Total Protein 4.9 GM/DL (6.4-8.2) Albumin 1.8 GM/DL (3.4-5.0) Lactic Acid Level 1.8 mmol/L (0.4-2.0) . Result Diagram: 05/12/17 0654 05/12/17 0654 Microbiology Microbiology Date/Time Procedure Status Source Growth 05/10/17 14:05 Aerobic Blood Culture - Preliminary Resulted Blood Peripheral NO GROWTH IN 1 DAY 05/10/17 14:05 Anaerobic Blood Culture - Preliminary Resulted Blood Peripheral NO GROWTH IN 1 DAY 05/10/17 14:10 Aerobic Blood Culture - Preliminary Resulted Blood Peripheral NO GROWTH IN 1 DAY 05/10/17 14:10 Anaerobic Blood Culture - Preliminary Resulted Blood Peripheral NO GROWTH IN 1 DAY 05/10/17 14:40 Urine Culture - Preliminary Resulted Urine Catheterized Urine NO GROWTH IN 24 HOURS. . Imaging Last [address] 05/10/171346 Signed Impressions: Service Date/Time: Wednesday, May 10, 2017 15:06 - CONCLUSION: No acute disease. Koko Plasencia MD Chest X-Ray 05/10/171346 Signed Impressions: Service Date/Time: Wednesday, May 10, 2017 14:10 - CONCLUSION: 1. Redemonstration of large left lower lobe cavitary mass similar to recent CT exam. 2. Otherwise, no acute abnormality. Constantin Erickson MD Chest CT 05/10/17 0000 Signed Impressions: Service Date/Time: Wednesday, May 10, 2017 15:10 - CONCLUSION: 1. Interval worsening cavitary mass within the left lower lobe which now extends through the posterior chest wall and results in extensive lytic destruction of the adjacent posterior ribs. This measures 8.7 x 6.9 cm in greatest dimension. This is consistent with neoplasm. There is also enlargement of the right paratracheal and subcarinal mediastinal as well as left hilar lymphadenopathy which appear necrotic. 2. Underlying emphysematous changes within the lungs bilaterally. 3. Degenerative changes and scoliosis of the thoracic spine. 4. Indeterminate area of decreased perfusion versus complex/solid lesion within the upper pole of the right kidney which will be described in more detail on the CT of the abdomen report done this same day. Koko Plasencia MD Abdomen/Pelvis CT 05/10/17 0000 Signed Impressions: Service Date/Time: Wednesday, May 10, 2017 15:10 - CONCLUSION: 1. Area of decreased perfusion versus complex/solid mass within the upper pole of the right kidney measuring 2.5 x 2.1 cm which is nonspecific. Outpatient PET/CT scan maybe helpful for further evaluation if clinically indicated. 2. Uncomplicated colonic diverticulosis. 3. Degenerative changes and scoliosis of the thoraco-lumbar spine. 4. 1 cm left renal cyst. 5. Enlarging cavitary left lower lobe mass which invades the posterior chest wall and erodes the adjacent ribs which is described in detail in the CT of the chest report done the same day. Koko Plasencia MD . Patient/Family Conference Present at Family Conference: Met with the patient and her sister at bedside. . Issues Discussed: * Palliative care role, purpose, approach * Additional medical, psychosocial, and spiritual history * Patients general health, functional status, and cognitive changes in the months leading up to the current hospitalization * Patient/family understanding of the current medical problems * Patient/family understanding of prognosis * Patients goals of care as best understood from advance directives and/or conversations and/or values * Current medical treatment options and benefits/burdens of those options * Likely scenarios comparing ongoing aggressive care with a transition to comfort measures only * Questions answered to the best of my ability * Palliative care contact information provided . Assessment and Plan Disease Oriented Problem List: (1) HTN (hypertension) (2) COPD (chronic obstructive pulmonary disease) (3) Breast cancer metastasized to lung Comment: = CT chest showing worsening of the cavitary mass within the left lower lobe that extends into the posterior chest wall resulting in extensive lytic destruction of the adjacent posterior ribs = MR brain with contrast pending = Patient currently on anastrozole = Radiation oncology, Dr. Yuen, following with recommendations for palliative radiation to the chest wall = Palliative Care following to assist with symptom management and to discuss with the family the benefits and burdens of her current illnesses and the options regarding future care. (4) Leukocytosis Comment: = Blood cultures negative to date = Urine culture growing corynebacterium species = Receiving IV cefepime . Symptom Scale: (1) Pain (2) Confusion (3) Generalized weakness (4) Decreased appetite Pertinent Non-Medical Issues Psychosocial: Ms. Brown is originally from [facility] but now lives in [place]. She has one sister (Rayne) who lives in [place]. The patient was for a short period of time, in the 1969. She has 2 adult children, a daughter (Ranjana) and a son (Alfredo). Both of her children live in [place], [place]. She is currently estranged from her son. Patient worked in the [employer] industry for many years; she is now retired. The patient is single and lives alone in a condo in [place]. Spiritual: Non-nondenominational per sister Legal: Per [place] statutes, in the absence of written advanced directives healthcare proxy decision-making falls to the patient's 2 adult children Ethical issues impacting care: No known ethical issues impacting care at this time. . Important Contacts Ranjana Amin, daughter: [phone] Camryn Henry, sister: [phone] Dacia, ql-rmppigic-zm-law: [phone] . Prognosis Ms. Brown is a 77-year-old female who was first diagnosed with breast cancer in 2016 and underwent a left mastectomy; she declined further evaluation by radiation and medical oncology. In Mar, 2017 the patient developed left flank pain. CT imaging of the chest revealed cavitary mass in the left lower lobe and a lung biopsy confirmed metastatic adenocarcinoma consistent with breast primary. The patient was started on hormone blockade therapy with anastrozole. Patient has experienced increased pain, weakness, weight loss and confusion. Recent imaging reveals disease progression. Radiation oncology is recommending palliative radiation to the chest wall. Given the patient's extensive metastatic disease along with her recent decline, long-term prognosis is poor. . Code Status: Full Code Plan * FULL CODE * Decision-making: Per [place] statutes, in the absence of written advanced directives healthcare proxy decision making will fall to the patient's 2 adult children * Goals: Goals remain aggressive at this time. * Symptom managementconfusion: Patient experiencing increased confusion, altered mental status with hallucinations; consider is at bedside. Psychiatry feels patient may history of recent delirium. However, given the presence of extensive metastatic disease in the lungs there is a possibility of brain metastasis. MRI brain with contrast pending. Will continue to monitor, await MRI results. * Symptom managementpain: Patient denies pain on exam, endorses increased pain in lower back and chest wall. She was recently started on Duragesic 25 echogram patch every 72 hours. Oxycodone 5 mg PO every 4 hours and hydromorphone 0.5 mg IV every 4 hours are available as needed for breakthrough pain, being used sparingly. 24 hour dosing requirements = hydromorphone 0.5 mg IV push 1; oxycodone 5 mg PO x 1. Palliative care will monitor PRN requirements and make recommendations as indicated. * Symptom managementdecreased appetite: Patient appetite is poor with a 15 pound weight loss reported in the past 6 weeks. Protein: 4.9, albumin 1.8. BMI 20.5 Recommendations to initiate appetite stimulant. * Radiation oncology and medical oncology are following. Patient is on total blockade therapy, anastrozole. Radiation oncology, Dr. Yuen, feels the patient may benefit from palliative radiation to the chest wall to control pain and prevent further bone damage/lung compromise. The patient's daughter indicating she would like to take the patient back to [place] to be treated at [facility] in [place]; she will arrive on to determine how to proceed. * Palliative care contact information was provided to the patient and her family. * Radiation oncology and medical oncology are following. Patient is on total blockade therapy, anastrozole. Radiation oncology, Dr. Yuen, feels the patient may benefit from palliative radiation to the chest wall to control pain and prevent further bone damage/lung compromise. The patient's daughter indicating she would like to take the patient back to [place] to be treated at [facility] in [place]; she will arrive on to determine how to proceed. * Palliative care will continue to follow throughout the patient's hospitalization to establish trust, assist with symptom management and clarification of medical treatment goals. . Thank you for the opportunity to participate in the care of Ms. Brown. . Attestation To help prompt me to consider important information that might be impacting today's encounter and assessment, information from prior notes written by myself or my colleagues may have been "brought forward" into today's note. My signature on this note, however, is an attestation that I personally performed the exam, history, and/or decision-making noted today, and, unless otherwise indicated, the interactions with patient, family, and staff as well as the review of records all occurred today. I also attest that the listed assessment and stated plan reflect my best clinical judgment today based on the combination of historical information, prior notes, and today's exam/ interactions. When time spent is documented, it refers only to time spent today by the signer, or if indicated, combined time spent today by collaborating physician/nurse practitioner. . Clara Singh May 12, 2017 10:59
[2017-05-12 11:50] VITALS: BP 112/58; PULSE 69; RESP 20; TEMP 97.9; O2SAT 95
[2017-05-12] MEDS: ANASTROZOLE 1 MG TAB PO SCH (13:35)
--- NOTE | 2017-05-12 13:44 | PD.ONC.PN ---
Subjective Subjective Remarks Tmax 100.1 overnight. States pain is well controlled at present. Talked with palliative care this morning. Continues to want aggressive care. Objective Data Date Time Temp Pulse Resp B/P Pulse Ox O2 Delivery O2 Flow Rate FiO2 05/12/17 07:50 98.4 78 20 113/75 95 05/12/17 05:10 16 05/12/17 04:00 99.4 84 16 107/67 99 05/12/17 00:01 99.3 70 16 102/59 92 05/11/17 20:00 99.5 93 16 126/72 93 05/11/17 15:20 100.1 71 18 141/66 95 Result Diagram: 05/12/17 0654 05/12/17 0654 Laboratory Results Laboratory Tests Test 05/11/17 05/11/17 05/12/17 14:49 19:25 06:54 White Blood Count 25.6 TH/MM3 17.0 TH/MM3 Red Blood Count 3.57 MIL/MM3 3.26 MIL/MM3 Hemoglobin 10.3 GM/DL 9.3 GM/DL Hematocrit 30.8 % 27.8 % Mean Corpuscular Volume 86.2 FL 85.4 FL Mean Corpuscular Hemoglobin 28.9 PG 28.6 PG Mean Corpuscular Hemoglobin 33.5 % 33.5 % Concent Red Cell Distribution Width 14.6 % 14.6 % Platelet Count 198 TH/MM3 188 TH/MM3 Mean Platelet Volume 7.6 FL 7.5 FL Neutrophils (%) (Auto) 92.1 % 88.9 % Lymphocytes (%) (Auto) 2.8 % 5.6 % Monocytes (%) (Auto) 3.8 % 4.4 % Eosinophils (%) (Auto) 0.9 % 0.9 % Basophils (%) (Auto) 0.4 % 0.2 % Neutrophils # (Auto) 23.6 TH/MM3 15.1 TH/MM3 Lymphocytes # (Auto) 0.7 TH/MM3 1.0 TH/MM3 Monocytes # (Auto) 1.0 TH/MM3 0.7 TH/MM3 Eosinophils # (Auto) 0.2 TH/MM3 0.2 TH/MM3 Basophils # (Auto) 0.1 TH/MM3 0.0 TH/MM3 CBC Comment DIFF FINAL DIFF FINAL Differential Comment Sodium Level 133 MEQ/L 137 MEQ/L Potassium Level 3.7 MEQ/L 3.0 MEQ/L Chloride Level 100 MEQ/L 101 MEQ/L Carbon Dioxide Level 24.7 MEQ/L 25.2 MEQ/L Anion Gap 8 MEQ/L 11 MEQ/L Blood Urea Nitrogen 10 MG/DL 7 MG/DL Creatinine 0.65 MG/DL 0.48 MG/DL Estimat Glomerular Filtration 89 ML/MIN 126 ML/MIN Rate Random Glucose 252 MG/DL 162 MG/DL Calcium Level 9.0 MG/DL 9.0 MG/DL Total Bilirubin 0.6 MG/DL Aspartate Amino Transf 26 U/L (AST/SGOT) Alanine Aminotransferase 25 U/L (ALT/SGPT) Alkaline Phosphatase 80 U/L Total Protein 4.9 GM/DL Albumin 1.8 GM/DL Lactic Acid Level 1.8 mmol/L Culture Results Microbiology Date/Time Procedure Status Source Growth 05/10/17 14:05 Aerobic Blood Culture - Preliminary Resulted Blood Peripheral NO GROWTH IN 2 DAYS 05/10/17 14:05 Anaerobic Blood Culture - Preliminary Resulted Blood Peripheral NO GROWTH IN 2 DAYS 05/10/17 14:10 Aerobic Blood Culture - Preliminary Resulted Blood Peripheral NO GROWTH IN 2 DAYS 05/10/17 14:10 Anaerobic Blood Culture - Preliminary Resulted Blood Peripheral NO GROWTH IN 2 DAYS 05/10/17 14:40 Urine Culture - Final Complete Urine Catheterized Urine Corynebacterium Sp Administered Medications Medications (Trade) Dose Ordered Sig/Bassem Route PRN Reason Start Time Stop Time Status Last Admin Dose Admin IV Flush (NS Flush) 2 ml UNSCH PRN IV FLUSH FLUSH AFTER USING IV ACCESS 05/10/17 14:00 05/10/17 15:27 Anastrozole (Arimidex) 1 mg DAILY PO 05/11/17 09:00 05/11/17 12:04 Mirtazapine (Remeron) 15 mg DAILY PO 05/11/17 09:00 05/12/17 08:19 Senna/Docusate Sodium (Ling-Colace) 2 tab BID PO 05/10/17 21:00 05/12/17 08:19 Metoprolol Succinate (Toprol Xl) 100 mg DAILY PO 05/11/17 09:00 05/12/17 08:19 Fentanyl (Duragesic 25 Mcg Patch.72 Hr) 1 patch Q72H T-DERMAL 05/10/17 18:00 05/10/17 18:08 Miscellaneous Information 1 Q72H T-DERMAL 05/10/17 18:00 05/10/17 18:09 Amlodipine Besylate (Norvasc) 5 mg DAILY PO 05/11/17 09:00 05/12/17 08:19 Oxycodone HCl 5 mg 5 mg Q4HR PRN PO PAIN SCALE 4 TO 10 05/10/17 18:45 05/12/17 08:20 Potassium Chloride/Dextrose/ Sod Cl (D5-NS + KCl 20 Meq Inj) 1,000 ml @ 84 mls/hr [id number] IV 05/10/17 18:45 05/12/17 06:09 Hydromorphone HCl 0.5 mg 0.5 mg Q4H PRN IV PUSH PAIN SCALE 4 TO 10 05/11/17 11:45 05/12/17 04:42 Cefepime HCl/ Sodium Chloride (Maxipime Inj/NS Inj) 100 ml @ 200 mls/hr Q12H IV 05/11/17 18:00 05/12/17 06:15 Quetiapine Fumarate (SEROquel) 12.5 mg BID PO 05/11/17 18:15 05/12/17 08:21 Objective Remarks GENERAL: Elderly female, sitting up in bed in [facility]. SKIN: Warm and dry. HEAD: Normocephalic. EYES: No injection or drainage. NECK: Supple, trachea midline. CARDIOVASCULAR: Regular rate and rhythm RESPIRATORY: diminished at bases, anterior [place] clear. GASTROINTESTINAL: Abdomen soft, non-tender, nondistended. EXTREMITIES: No cyanosis NEUROLOGICAL: awake and alert, normal speech. moving all extremities. Assessment/Plan Problem List: (1) Breast cancer metastasized to lung Status: Acute Plan: --CT chest showed interval worsening of the cavitary mass within the left lower lobe and extending into the posterior chest wall resulting in extensive lytic destruction of the adjacent posterior ribs. --CT abdomen and pelvis-->no additional findings --MRI brain pending --currently on Arimidex --Dr. Yuen, radiation oncology following for palliative XRT to chest wall --palliative care also following to assess goals (2) Leukocytosis Status: Acute Plan: --most likely reactive -- will rule out any underlying infection. --agree with IV antibiotics. --blood cultures no growth --UC growing corynebacterium species. (3) Cancer associated pain Status: Acute Plan: --Fentanyl 25mcg patch + Oxycodone or dilaudid for breakthrough pain (4) Microcytic anemia Status: Acute Plan: --will obtain iron studies. monitor, no transfusion needed at present. Assessment 77y/o female with metastatic breast cancer (currently on Arimidex) admitted with intractable pain and altered sensorium and hallucinations. h/o COPD and Hypertension. Plan 1. appreciate palliative care consult 2. await MRI brain 3. continue pain management Attending Statement The exam, history, and the medical decision-making described in the above note were completed with the assistance of the mid-level provider. I reviewed and agree with the findings presented. I attest that I had a [id number] encounter with the patient on the same day, and personally performed and documented my assessment and findings in the medical record more lucid today wants aggressive care Brain MRI does not show any metastatic disease Palliative XRT to the chest If stable over the next 24 hours, can be discharged home outpatient f/u n oncology clinic Approval for Ibrance pending, which will be started in addition to the AI Problem Qualifiers (1) Leukocytosis: Qualified Code: D72.829 - Leukocytosis, unspecified type Meenu Maria May 12, 2017 13:43 Clara Singh May 12, 2017 15:51 Zia Syed MD May 12, 2017 23:08
--- NOTE | 2017-05-12 13:50 | PD.CONS ---
Provisional Diagnosis Admission Date May 10, 2017 at 16:13 [place] I. Delirium History of Present Illness Service Psychiatry Consult Requested By Dr. Evelyn Tang Primary Care Physician Zia Syed MD HPI Very pleasant 77-year-old female with multiple problems including metastatic cancer. Patient recognizes she was markedly confused yesterday but feels she is much improved today. Today she is alert and oriented 3. She is also knowledgeable about her current medical condition. She is not exhibit any psychotic symptoms or waxing and waning mental status. She is calm, pleasant and cooperative. This physician feels she has a history of recent delirium. At this time we have nothing further to offer her psychiatrically. Review of Systems Except as stated in HPI: all other systems reviewed are Neg Past Family Social History Coded Allergies: No Known Allergies (Unverified , 05/10/17) Active Scripts Oxygen tank 1 Ea Tank #2 Liter David[employer] Swarm Continuous Oxygen Concentrator Portable Gaseous 2 L/min via Nasal Cannula Continuous For 99 months Prov:Pranay Bennett MD R3 03/28/17 Sennosides-Docusate Sodium (Senna Plus 8.6-50 mg)1 Tab Tab2 Tab PO BID #60 TAB Prov:Aguila Ordoñez MD 03/25/17 Reported Medications Fentanyl Patch 72 HR 25 Mcg/Hr Patch25 Mcg T-DERMAL Q72H #10 PATCH Ref 0 05/10/17 Triamterene (Dyrenium)50 Mg Cap25 Mg PO DAILY #60 CAP Ref 0 05/10/17 Mirtazapine 15 Mg Tab15 Mg PO DAILY #30 TAB Ref 0 05/10/17 Oxycodone 5 Mg Cap5 Mg PO QID Ref 0 05/10/17 Anastrozole 1 Mg Tab1 Mg PO DAILY #30 TAB Ref 0 05/10/17 Metoprolol Succinate ER 24 HR 100 Mg Syw091 Mg PO DAILY #30 TAB Ref 0 05/10/17 Amlodipine 5 Mg Tab5 Mg PO DAILY #30 TAB Ref 0 03/22/17 Discontinued Reported Medications Metoprolol Succinate ER 24 HR 50 Mg Tab50 Mg PO DAILY #30 TAB Ref 0 03/22/17 Discontinued Scripts Tramadol (Ultram)50 Mg Tab50 Mg PO Q6HR PRN (pain) #28 TAB Prov:Aguila Ordoñez MD 03/26/17 Current Medications Medications (Trade) Dose Ordered Sig/Bassem Route Start Time Stop Time Status Last Admin (NS Flush) 2 ml UNSCH PRN IV FLUSH 05/10/17 14:00 05/10/17 15:27 (Arimidex) 1 mg DAILY PO 05/11/17 09:00 05/12/17 13:35 (Remeron) 15 mg DAILY PO 05/11/17 09:00 05/12/17 08:19 (Ling-Colace) 2 tab BID PO 05/10/17 21:00 05/12/17 08:19 (Toprol Xl) 100 mg DAILY PO 05/11/17 09:00 05/12/17 08:19 Patient Own Medication PT OWN MED: Triamter... DAILY PO 05/11/17 09:00 (Duragesic 25 Mcg Patch.72 Hr) 1 patch Q72H T-DERMAL 05/10/17 18:00 05/10/17 18:08 Miscellaneous Information 1 Q72H T-DERMAL 05/10/17 18:00 05/10/17 18:09 (Norvasc) 5 mg DAILY PO 05/11/17 09:00 05/12/17 08:19 Oxycodone HCl 5 mg 5 mg Q4HR PRN PO 05/10/17 18:45 05/12/17 08:20 (D5-NS + KCl 20 Meq Inj) 1,000 ml @ 84 mls/hr [id number] IV 05/10/17 18:45 05/12/17 06:09 Hydromorphone HCl 0.5 mg 0.5 mg Q4H PRN IV PUSH 05/11/17 11:45 05/12/17 04:42 (Maxipime Inj/NS Inj) 100 ml @ 200 mls/hr Q12H IV 05/11/17 18:00 05/12/17 06:15 (SEROquel) 12.5 mg BID PO 05/11/17 18:15 05/12/17 08:21 (Pill Splitter) 1 ea UNSCH PRN OTHER 05/11/17 18:30 (KCl) 40 meq DAILY PO 05/13/17 09:00 Family History Denied for mental illness. Social History Denied for alcohol and drug abuse. Patient's Strengths (min. 2) Verbal and has access to healthcare. Physical Exam Vital Signs Vital Signs Date Time Temp Pulse Resp B/P Pulse Ox O2 Delivery O2 Flow Rate FiO2 05/12/17 07:50 98.4 78 20 113/75 95 05/10/17 19:41 Nasal Cannula 2 I/O 05/11/17 05/11/17 05/12/17 08:00 16:00 00:00 Output Total 900 ml 400 ml 775 ml Balance -900 ml -400 ml -775 ml Mental Status Examination Speech: Unremarkable Orientation: x3 Memory: Unremarkable Thought Process: Organized, Goal Directed Thought Content: Unremarkable Hallucination Type: None Attention and Concentration: Good Suicidal Ideation: No Previous Suicide Attempts: No Homicidal Ideation: No Previous Homicide Attempts: No Insight: Fair Judgment: WNL Affect: Good Mood: Appropriate Motor Activity: Normal gait Assessment & Plan Problem List: (1) Delirium due to another medical condition ICD Code: F05 Assessment & Plan Estimated LOS: days this physician feels we have nothing psychiatrically to offer this lady. Tanmay Salazar MD May 12, 2017 13:50
[2017-05-12] MEDS ORDERED: GADODIAMIDE PF 287 MG/ML 5 ML VIAL (for RAD MRI) IV ONE (14:25)
[2017-05-12] MEDS ORDERED: POTASSIUM CHLORIDE 10 MEQ CONTROLLED RELEASE TAB PO ONE (15:45)
[2017-05-12 15:50] VITALS: BP 118/68; PULSE 74; RESP 20; TEMP 98.4; O2SAT 96
--- NOTE | 2017-05-12 16:41 | RADRPT ---
EXAM DATE/TIME: 05/12/2017 13:54 [place] COMPARISON: MRI BRAIN W & W/O CONTRAST, March 24, 2017, 16:18. INDICATIONS : Metastatic disease. Breast CA. CONTRAST: 15 cc Omniscan (gadodiamide) IV MEDICAL HISTORY : Carcinoma, breast. Carcinoma, lung. Hypertension. SURGICAL HISTORY : Mastectomy, left. ENCOUNTER: Subsequent ACUITY: 3 day PAIN SCORE: 0/10 LOCATION: Head TECHNIQUE: Multiplanar, multisequence MRI of the brain was performed both prior to and following the administrat ion of paramagnetic contrast. FINDINGS: There are scattered areas of high signal intensity in the periventricular white matter. There is no restricted diffusion evident. There are no extra-axial fluid collections appreciated. Ventricular si ze is appropriate. Following intravenous administration of gadolinium there is no abnormal contrast e nhancement. The posterior fossa is unremarkable. CONCLUSION: 1. Negative MRI of the brain performed without and with contrast for metastatic disease. 2. Stable periventricular white matter changes. Pepe Bustamante MD FACR on May 12, 2017 at 16:03 Board Certified Radiologist. This report was verified electronically.
[2017-05-12 18:52] LABS: TRANSFERRIN IRON PROFILE 124 MG/DL (200-360)
[2017-05-12 19:18] LABS: FERRITIN 591 NG/ML (8-252)
[2017-05-12 20:00] VITALS: BP 135/63; PULSE 91; RESP 18; TEMP 98.9; O2SAT 94
[2017-05-13] VITALS: BP 134/60; PULSE 65; RESP 16; TEMP 98.2; O2SAT 95
[2017-05-13 05:00] VITALS: BP 176/74; PULSE 70; RESP 18; TEMP 98.9; O2SAT 96
[2017-05-13] MEDS: CEFEPIME INJ 1,000 MG in SODIUM CHLORIDE 0.9% INJ 100 ML IV SCH (05:46)
[2017-05-13] MEDS: D5-NS + KCL 20 MEQ INJ 1,000 ML IV SCH ×2 (05:47→20:49)
[2017-05-13 08:00] VITALS: BP 156/68; PULSE 79; RESP 18; TEMP 98.8; O2SAT 96
[2017-05-13] MEDS: TRIAMTERENE 25 MG PO SCH (08:02)
[2017-05-13] MEDS: POTASSIUM CHLORIDE 10 MEQ CONTROLLED RELEASE TAB PO SCH (08:21)
[2017-05-13] MEDS: ANASTROZOLE 1 MG TAB PO SCH (08:22)
[2017-05-13] MEDS: MIRTAZAPINE 15 MG TAB PO SCH (08:22)
[2017-05-13] MEDS: METOPROLOL SUCCINATE 50 MG EXTENDED RELEASE TAB PO SCH (08:22)
[2017-05-13] MEDS: DOCUSATE SODIUM 50 MG/SENNA 8.6 MG TAB PO SCH ×2 (08:22→20:39)
[2017-05-13] MEDS: QUEtiapine FUMARATE 25 MG TAB PO SCH ×2 (08:22→20:39)
[2017-05-13] MEDS: amLODIPine BESYLATE 5 MG TAB PO SCH (08:22)
[2017-05-13 11:23] LABS: BASOPHIL % 0.2 % (0.0-2.0); EOSINOPHIL # 0.2 TH/MM3 (0-0.4); EOSINOPHIL % 1.4 % (0.0-4.0); HEMATOCRIT 29.5 % (35.0-46.0); HEMO FLAGS DIFF FINAL; LYMPH % 5.5 % (9.0-44.0); LYMPHOCYTE # 0.8 TH/MM3 (1.0-4.8); MEAN CELL VOLUME 86.7 FL (80.0-100.0); MEAN CORPUSCULAR HEMOGLOBIN 27.9 PG (27.0-34.0); MEAN CORPUSCULAR HGB CONC 32.2 % (32.0-36.0); MONO % 4.9 % (0.0-8.0); PLATELET COUNT 194 TH/MM3 (150-450); RED CELL DISTRIBUTION WIDTH 14.9 % (11.6-17.2); WHITE BLOOD COUNT 14.7 TH/MM3 (4.0-11.0)
[2017-05-13 12:00] VITALS: BP 143/65; PULSE 77; RESP 18; TEMP 97.2; O2SAT 96
[2017-05-13 13:55] LABS: BICARBONATE 27.7 MEQ/L (21.0-32.0); POTASSIUM 4.5 MEQ/L (3.5-5.1)
--- NOTE | 2017-05-13 15:27 | HHI.IDPN ---
Subjective Subjective Remarks Notes reviewed No further fever BC negative UA ok Mental status better Brain MRI no mets Antibiotics cefepime Lines PIV Past Medical History Reviewed Allergies: Coded Allergies: No Known Allergies (Unverified , 05/10/17) Objective . Vital Signs Date Time Temp Pulse Resp B/P Pulse Ox O2 Delivery O2 Flow Rate FiO2 05/13/17 12:00 97.2 77 18 143/65 96 05/13/17 08:00 98.8 79 18 156/68 96 05/13/17 05:00 98.9 70 18 176/74 96 05/13/17 00:00 98.2 65 16 134/60 95 05/12/17 20:00 98.9 91 18 135/63 94 05/12/17 15:50 98.4 74 20 118/68 96 05/12/17 05/12/17 05/13/17 15:00 23:00 07:00 Intake Total 320 ml 240 ml Output Total 625 ml 600 ml 800 ml Balance -305 ml -360 ml -800 ml Intake Oral 320 ml 240 ml Output Urine Total 625 ml 600 ml 800 ml # Bowel Movements 0 . Laboratory Tests Test 05/12/17 05/13/17 06:54 09:00 White Blood Count 17.0 TH/MM3 14.7 TH/MM3 Red Blood Count 3.26 MIL/MM3 3.40 MIL/MM3 Hemoglobin 9.3 GM/DL 9.5 GM/DL Hematocrit 27.8 % 29.5 % Mean Corpuscular Volume 85.4 FL 86.7 FL Mean Corpuscular Hemoglobin 28.6 PG 27.9 PG Mean Corpuscular Hemoglobin 33.5 % 32.2 % Concent Red Cell Distribution Width 14.6 % 14.9 % Platelet Count 188 TH/MM3 194 TH/MM3 Mean Platelet Volume 7.5 FL 7.9 FL Neutrophils (%) (Auto) 88.9 % 88.0 % Lymphocytes (%) (Auto) 5.6 % 5.5 % Monocytes (%) (Auto) 4.4 % 4.9 % Eosinophils (%) (Auto) 0.9 % 1.4 % Basophils (%) (Auto) 0.2 % 0.2 % Neutrophils # (Auto) 15.1 TH/MM3 13.0 TH/MM3 Lymphocytes # (Auto) 1.0 TH/MM3 0.8 TH/MM3 Monocytes # (Auto) 0.7 TH/MM3 0.7 TH/MM3 Eosinophils # (Auto) 0.2 TH/MM3 0.2 TH/MM3 Basophils # (Auto) 0.0 TH/MM3 0.0 TH/MM3 CBC Comment DIFF FINAL DIFF FINAL Differential Comment Laboratory Tests Test 05/11/17 05/12/17 05/12/17 05/13/17 19:25 06:54 17:51 12:50 Lactic Acid Level 1.8 mmol/L Sodium Level 137 MEQ/L 139 MEQ/L Potassium Level 3.0 MEQ/L 4.5 MEQ/L Chloride Level 101 MEQ/L 107 MEQ/L Carbon Dioxide Level 25.2 MEQ/L 27.7 MEQ/L Anion Gap 11 MEQ/L 4 MEQ/L Blood Urea Nitrogen 7 MG/DL 9 MG/DL Creatinine 0.48 MG/DL 0.51 MG/DL Estimat Glomerular Filtration 126 ML/MIN 117 ML/MIN Rate Random Glucose 162 MG/DL 153 MG/DL Calcium Level 9.0 MG/DL 10.5 MG/DL Iron Level 21 MCG/DL Total Iron Binding Capacity 174 MCG/DL Percent Iron Saturation 12.1 % Ferritin 591 NG/ML Vitamin B12 Level 587 PG/ML Imaging Last Impressions Head CT 05/10/17 1347 Signed Impressions: Service Date/Time: Wednesday, May 10, 2017 15:06 - CONCLUSION: No acute disease. Koko Plasencia MD Chest X-Ray 05/10/177 Signed Impressions: Service Date/Time: Wednesday, May 10, 2017 14:10 - CONCLUSION: 1. Redemonstration of large left lower lobe cavitary mass similar to recent CT exam. 2. Otherwise, no acute abnormality. Constantin Erickson MD Chest CT 05/10/17 0000 Signed Impressions: Service Date/Time: Wednesday, May 10, 2017 15:10 - CONCLUSION: 1. Interval worsening cavitary mass within the left lower lobe which now extends through the posterior chest wall and results in extensive lytic destruction of the adjacent posterior ribs. This measures 8.7 x 6.9 cm in greatest dimension. This is consistent with neoplasm. There is also enlargement of the right paratracheal and subcarinal mediastinal as well as left hilar lymphadenopathy which appear necrotic. 2. Underlying emphysematous changes within the lungs bilaterally. 3. Degenerative changes and scoliosis of the thoracic spine. 4. Indeterminate area of decreased perfusion versus complex/solid lesion within the upper pole of the right kidney which will be described in more detail on the CT of the abdomen report done this same day. Koko Plasencia MD Abdomen/Pelvis CT 05/10/17 0000 Signed Impressions: Service Date/Time: Wednesday, May 10, 2017 15:10 - CONCLUSION: 1. Area of decreased perfusion versus complex/solid mass within the upper pole of the right kidney measuring 2.5 x 2.1 cm which is nonspecific. Outpatient PET/CT scan maybe helpful for further evaluation if clinically indicated. 2. Uncomplicated colonic diverticulosis. 3. Degenerative changes and scoliosis of the thoraco-lumbar spine. 4. 1 cm left renal cyst. 5. Enlarging cavitary left lower lobe mass which invades the posterior chest wall and erodes the adjacent ribs which is described in detail in the CT of the chest report done the same day. Koko Plasencia MD Physical Exam GENERAL: Awake and alert, not in respiratory distress. SKIN: Warm and dry. No generalized rash HEAD: Atraumatic. Normocephalic. No temporal wasting, or tenderness. EYES: [place] conjunctiva. No petechia or hemorrhage. Pupils equal, round and reactive to light. Extraocular movements full and intact. No scleral icterus. No injection or drainage. EARS, NOSE AND THROAT: Nose without bleeding or purulent nasal discharge. No sinus tenderness. Mucous membranes pink and moist. No oral lesions noted. No exudate. No oral thrush. NECK: Trachea midline. Supple and not tender, no meningeal signs CARDIOVASCULAR: Regular rate and rhythm. No murmurs, rubs or gallops heard RESPIRATORY: Clear to auscultation. Breath sounds equal bilaterally. No rales , wheezing or rhonchi ABDOMEN: Soft, nondistended, with mild diffuse tenderness. Bowel sounds present and normoactive. No guarding. No rebound. No organomegaly. EXTREMITIES: No clubbing, cyanosis, or edema.No joint effusion, has good ROM. No calf tenderness. Well perfused and warm. NEUROLOGICAL: Non-focal PSYCHIATRIC: Normal affect, calm and cooperative. LINE: No evidence of infection Assessment & Plan Remarks IMPRESSION Leukocytosis, etiology? improving - no obvious source of infection - no clinical evidence of PNA, UA ok - ?bacteremia, but she clinically looks good, all BC negative, has no line - likely due to her malignancy Breast CA with mets to lung, enlarging and invading ribs Increasing back pain due to enlarging lung mass and into ribs R kidney mass, etiology? Confusion, ?due to med - better RECOMMENDATION Stop cefepime Monitor off Abx Follow temps Monitor progress Viry Lopez MD May 13, 2017 15:27
[2017-05-13] MEDS ORDERED: PHARMACY ORDERED LAB ONE (15:45)
[2017-05-13 16:00] VITALS: BP 122/75; PULSE 82; RESP 18; TEMP 97.8; O2SAT 96
--- NOTE | 2017-05-13 16:55 | HHI.HCPN ---
Reason for visit a. To assist with evaluation and management of symptoms including: pain, generalized weakness, confusion, decreased appetite b. To assist medical decision maker(s) with: better understanding of current medical conditions; weighing benefits/burdens of medical treatment options; making medical treatment decisions. . Subjective/Interval History Ms. Brown is a 77-year-old female with stage IV metastatic cancer who presented to [facility] ED on 05/10/2017 for evaluation of altered mental status. Dr. Syed is her oncologist. The patient's sister was visiting from [place] and noticed the patient had declined over a 4 day period. The sister reported the patient was increasingly confused and having hallucinations; the sister also noticed patient had not been eating or drinking well. PMH includes chronic back pain, hypertension and COPD. The patient was originally diagnosed with breast cancer in 2015 after a routine screening mammogram detected an abnormality. The patient underwent a left mastectomy after a biopsy definitively diagnosed invasive breast cancer. The patient subsequently declined further evaluation/treatment with radiation and medical oncology. Now with metastatic disease to the lungs, enlarging and invading the ribs. Radiation oncology and medical oncology are following. Patient is on total blockade therapy, anastrozole. Radiation oncology, Dr. Yuen, feels the patient may benefit from palliative radiation to the chest wall to control pain and prevent further bone damage/lung compromise. An MRI of the brain on showed no metastatic disease. WBC: 14.7, hemoglobin 9.5, hematocrit 29.5, platelets 194, neutrophils 88.0% Sodium: 139, potassium 4.5, chloride 107, carbon dioxide 27.7, glucose 153, calcium 10.5 BUN: 9, creatinine 0.51, GFR 117 Pulse 77, respirations 18, BP 143/65, oxygen saturation 96% on room air, oral temperature 97.2 Blood cultures negative to date; Cefepime discontinued . Patient having ongoing intermittent confusion which started when the was started on a fentanyl patch on 05/07/17. Recommendations to discontinue fentanyl patch which may be a contributing factor in the patient's altered mental status. Discussed with Dr. Voss who is amenable to discontinuing medication. Patient continues to have ongoing back pain likely related to tumor load and rib involvement. PRN hydromorphone and oxycodone are available q 4 hours. Family/friend interactions Family conference he is telephone with patient's sister (Rayne), son-in-law ( Sage), xd-jbpffdlu-gd-law (Dacia) and daughter (Ranjana). Patient's daughter is arranging medical transport to [facility] so the patient can be near family (she has no family locally) and pursue aggressive treatment at the [facility]. Dr. Voss and case management are aware. . Advance Directives Living Will: Never completed Health Care Surrogate: Never completed Durable Power of Cooler Servicer: Never completed Advance Directive Specifics Documented care wishes: No written advanced directives were completed. . Significant change in goals: Family is attempting to arrange medical transfer to [place], [place] to pursue aggressive treatment at the [facility]. . Objective Vital Signs Date Time Temp Pulse Resp B/P Pulse Ox O2 Delivery O2 Flow Rate FiO2 05/13/17 12:00 97.2 77 18 143/65 96 05/13/17 08:00 98.8 79 18 156/68 96 05/13/17 05:00 98.9 70 18 176/74 96 05/13/17 00:00 98.2 65 16 134/60 95 05/12/17 20:00 98.9 91 18 135/63 94 Intake & Output 05/13/17 05/13/17 07:00 19:00 Intake Total 240 ml 1563 ml Output Total 1400 ml Balance -1160 ml 1563 ml Intake Oral 240 ml IV Total 1563 ml Output Urine Total 1400 ml . Physical Exam CONSTITUTIONAL/GENERAL: This is a frail, older patient in no apparent distress. TUBES/LINES/DRAINS: PIV 1 SKIN: No jaundice, rashes, or lesions. Skin temperature appropriate. Not diaphoretic. HEAD: Atraumatic. Normocephalic. EYES: Pupils equal and round and reactive.No scleral icterus. No injection or drainage. Fundi not examined. ENT: Hearing grossly normal. Nose without bleeding or purulent drainage. NECK: Trachea midline. CARDIOVASCULAR: Regular rate and rhythm without murmurs, gallops, or rubs. No JVD. Peripheral pulses symmetric. RESPIRATORY/CHEST: Symmetric, unlabored respirations. Clear to auscultation. Breath sounds equal bilaterally. No wheezes, rales, or rhonchi. GASTROINTESTINAL: Abdomen soft, non-tender, nondistended. Bowel sounds present. GENITOURINARY: Without palpable bladder distension. MUSCULOSKELETAL: Extremities without clubbing, cyanosis, or edema. LYMPHATICS: No palpable cervical or supraclavicular adenopathy. NEUROLOGICAL: Awake but intermittently confused, lethargic. PSYCHIATRIC: No apparent anxiety, agitation. No hallucinations at time of exam . Diagnostic Tests Laboratory Laboratory Tests Test 05/11/17 05/11/17 05/12/17 05/12/17 14:49 19:25 06:54 17:51 White Blood Count 25.6 TH/MM3 17.0 TH/MM3 (4.0-11.0) (4.0-11.0) Red Blood Count 3.57 MIL/MM3 3.26 MIL/MM3 (4.00-5.30) (4.00-5.30) Hemoglobin 10.3 GM/DL 9.3 GM/DL (11.6-15.3) (11.6-15.3) Hematocrit 30.8 % 27.8 % (35.0-46.0) (35.0-46.0) Mean Corpuscular Volume 86.2 FL 85.4 FL (80.0-100.0) (80.0-100.0) Mean Corpuscular Hemoglobin 28.9 PG 28.6 PG (27.0-34.0) (27.0-34.0) Mean Corpuscular Hemoglobin 33.5 % 33.5 % Concent (32.0-36.0) (32.0-36.0) Red Cell Distribution Width 14.6 % 14.6 % (11.6-17.2) (11.6-17.2) Platelet Count 198 TH/MM3 188 TH/MM3 (150-450) (150-450) Mean Platelet Volume 7.6 FL 7.5 FL (7.0-11.0) (7.0-11.0) Neutrophils (%) (Auto) 92.1 % 88.9 % (16.0-70.0) (16.0-70.0) Lymphocytes (%) (Auto) 2.8 % 5.6 % (9.0-44.0) (9.0-44.0) Monocytes (%) (Auto) 3.8 % (0.0-8.0) 4.4 % (0.0-8.0) Eosinophils (%) (Auto) 0.9 % (0.0-4.0) 0.9 % (0.0-4.0) Basophils (%) (Auto) 0.4 % (0.0-2.0) 0.2 % (0.0-2.0) Neutrophils # (Auto) 23.6 TH/MM3 15.1 TH/MM3 (1.8-7.7) (1.8-7.7) Lymphocytes # (Auto) 0.7 TH/MM3 1.0 TH/MM3 (1.0-4.8) (1.0-4.8) Monocytes # (Auto) 1.0 TH/MM3 0.7 TH/MM3 (0-0.9) (0-0.9) Eosinophils # (Auto) 0.2 TH/MM3 0.2 TH/MM3 (0-0.4) (0-0.4) Basophils # (Auto) 0.1 TH/MM3 0.0 TH/MM3 (0-0.2) (0-0.2) CBC Comment DIFF FINAL DIFF FINAL Differential Comment Sodium Level 133 MEQ/L 137 MEQ/L (136-145) (136-145) Potassium Level 3.7 MEQ/L 3.0 MEQ/L (3.5-5.1) (3.5-5.1) Chloride Level 100 MEQ/L 101 MEQ/L (98-107) (98-107) Carbon Dioxide Level 24.7 MEQ/L 25.2 MEQ/L (21.0-32.0) (21.0-32.0) Anion Gap 8 MEQ/L (5-15) 11 MEQ/L (5-15) Blood Urea Nitrogen 10 MG/DL (7-18) 7 MG/DL (7-18) Creatinine 0.65 MG/DL 0.48 MG/DL (0.50-1.00) (0.50-1.00) Estimat Glomerular Filtration 89 ML/MIN (>89) 126 ML/MIN Rate (>89) Random Glucose 252 MG/DL 162 MG/DL (74-106) (74-106) Calcium Level 9.0 MG/DL 9.0 MG/DL (8.5-10.1) (8.5-10.1) Total Bilirubin 0.6 MG/DL (0.2-1.0) Aspartate Amino Transf 26 U/L (15-37) (AST/SGOT) Alanine Aminotransferase 25 U/L (10-53) (ALT/SGPT) Alkaline Phosphatase 80 U/L (45-117) Total Protein 4.9 GM/DL (6.4-8.2) Albumin 1.8 GM/DL (3.4-5.0) Lactic Acid Level 1.8 mmol/L (0.4-2.0) Iron Level 21 MCG/DL (50-170) Total Iron Binding Capacity 174 MCG/DL (250-450) Percent Iron Saturation 12.1 % (20-50) Ferritin 591 NG/ML (8-252) Vitamin B12 Level 587 PG/ML (193-986) Test 05/13/17 05/13/17 09:00 12:50 White Blood Count 14.7 TH/MM3 (4.0-11.0) Red Blood Count 3.40 MIL/MM3 (4.00-5.30) Hemoglobin 9.5 GM/DL (11.6-15.3) Hematocrit 29.5 % (35.0-46.0) Mean Corpuscular Volume 86.7 FL (80.0-100.0) Mean Corpuscular Hemoglobin 27.9 PG (27.0-34.0) Mean Corpuscular Hemoglobin 32.2 % Concent (32.0-36.0) Red Cell Distribution Width 14.9 % (11.6-17.2) Platelet Count 194 TH/MM3 (150-450) Mean Platelet Volume 7.9 FL (7.0-11.0) Neutrophils (%) (Auto) 88.0 % (16.0-70.0) Lymphocytes (%) (Auto) 5.5 % (9.0-44.0) Monocytes (%) (Auto) 4.9 % (0.0-8.0) Eosinophils (%) (Auto) 1.4 % (0.0-4.0) Basophils (%) (Auto) 0.2 % (0.0-2.0) Neutrophils # (Auto) 13.0 TH/MM3 (1.8-7.7) Lymphocytes # (Auto) 0.8 TH/MM3 (1.0-4.8) Monocytes # (Auto) 0.7 TH/MM3 (0-0.9) Eosinophils # (Auto) 0.2 TH/MM3 (0-0.4) Basophils # (Auto) 0.0 TH/MM3 (0-0.2) CBC Comment DIFF FINAL Differential Comment Sodium Level 139 MEQ/L (136-145) Potassium Level 4.5 MEQ/L (3.5-5.1) Chloride Level 107 MEQ/L (98-107) Carbon Dioxide Level 27.7 MEQ/L (21.0-32.0) Anion Gap 4 MEQ/L (5-15) Blood Urea Nitrogen 9 MG/DL (7-18) Creatinine 0.51 MG/DL (0.50-1.00) Estimat Glomerular Filtration 117 ML/MIN Rate (>89) Random Glucose 153 MG/DL (74-106) Calcium Level 10.5 MG/DL (8.5-10.1) . Result Diagram: 05/13/17 0900 05/13/17 1250 Assessment and Plan Disease Oriented Problem List: (1) HTN (hypertension) (2) COPD (chronic obstructive pulmonary disease) (3) Breast cancer metastasized to lung Comment: = CT chest showing worsening of the cavitary mass within the left lower lobe that extends into the posterior chest wall resulting in extensive lytic destruction of the adjacent posterior ribs = MR brain with contrast pending = Patient currently on anastrozole = Radiation oncology, Dr. Yuen, following with recommendations for palliative radiation to the chest wall = Palliative Care following to assist with symptom management and to discuss with the family the benefits and burdens of her current illnesses and the options regarding future care. (4) Leukocytosis Comment: = Blood cultures negative to date = Urine culture growing corynebacterium species = Receiving IV cefepime . Symptom Scale: (1) Pain (2) Confusion (3) Generalized weakness (4) Decreased appetite Pertinent Non-Medical Issues Psychosocial: Ms. Brown is originally from [facility] but now lives in [place]. She has one sister (Rayne) who lives in [place]. The patient was for a short period of time, in the 1969. She has 2 adult children, a daughter (Ranjana) and a son (Alfredo). Both of her children live in [place], [place]. She is currently estranged from her son. Patient worked in the [employer] industry for many years; she is now retired. The patient is single and lives alone in a condo in [place]. Spiritual: Non-church per sister Legal: Per [place] statutes, in the absence of written advanced directives healthcare proxy decision-making falls to the patient's 2 adult children Ethical issues impacting care: No known ethical issues impacting care at this time. . Important Contacts Ranajna Amin, daughter: [phone] Camryn Henry, sister: [phone] Dacia, yj-myssypzo-br-law: [phone] . Prognosis Ms. Brown is a 77-year-old female who was first diagnosed with breast cancer in 2015 and underwent a left mastectomy; she declined further evaluation by radiation and medical oncology. In Mar, 2017 the patient developed left flank pain. CT imaging of the chest revealed cavitary mass in the left lower lobe and a lung biopsy confirmed metastatic adenocarcinoma consistent with breast primary. The patient was started on hormone blockade therapy with anastrozole. Patient has experienced increased pain, weakness, weight loss and confusion. Recent imaging reveals disease progression. Radiation oncology is recommending palliative radiation to the chest wall. Given the patient's extensive metastatic disease along with her recent decline, long-term prognosis is poor. . Code Status: Full Code Plan * FULL CODE * Decision-making: Per [place] statutes, in the absence of written advanced directives healthcare proxy decision making will fall to the patient's 2 adult children * Goals: Goals remain aggressive at this time. * Family conference he is telephone with patient's sister (Rayne), son-in-law ( Sage), gp-lifbyvze-bk-law (Dacia) and daughter (Ranjana). Patient's daughter is arranging medical transport to [facility] so the patient can be near family (she has no family locally) and pursue aggressive treatment at the [facility]. Dr. Voss and case management are aware. * Symptom managementconfusion: Patient experiencing increased confusion, altered mental status with hallucinations; consider is at bedside. Psychiatry feels patient may history of recent delirium. MRI of the brain with contrast and without contrast negative on 05/12/17. Family feels patient's confusion began when the patient was started on the Duragesic patch on 05/07/17 and request it be discontinued. Discussed with Dr. Voss who is amenable to discontinuing medication. * Symptom managementpain: Patient denies pain on exam. However, having ongoing back pain likely related to tumor load and rib involvement. Duragesic 25mcg patch every 72 hours discontinued her family who thinks medication is contributing to patient's confusion. PRN Oxycodone and Hydromorphone are available every 4 hours. Palliative care will monitor PRN requirements and make recommendations as indicated. * Symptom managementdecreased appetite: Patient appetite is poor with a 15 pound weight loss reported in the past 6 weeks. Protein: 4.9, albumin 1.8. BMI 20.5 Recommendations to initiate appetite stimulant. * Family conference he is telephone with patient's sister (Rayne), son-in-law ( Sage), hb-obhzskfm-hx-law (Dacia) and daughter (Ranjana). Patient's daughter is arranging medical transport to [facility] so the patient can be near family (she has no family locally) and pursue aggressive treatment at the [facility]. Dr. Voss and case management are aware. * Radiation oncology and medical oncology are following. Patient is on total blockade therapy, anastrozole. Radiation oncology, Dr. Yuen, feels the patient may benefit from palliative radiation to the chest wall to control pain and prevent further bone damage/lung compromise. * Palliative care contact information was provided to the patient and her family. * Radiation oncology and medical oncology are following. Patient is on total blockade therapy, anastrozole. Radiation oncology, Dr. Yuen, feels the patient may benefit from palliative radiation to the chest wall to control pain and prevent further bone damage/lung compromise. The patient's daughter indicating she would like to take the patient back to [place] to be treated at [facility] in [place]; she will arrive on to determine how to proceed. * Palliative care will continue to follow throughout the patient's hospitalization to establish trust, assist with symptom management and clarification of medical treatment goals. . Attestation To help prompt me to consider important information that might be impacting today's encounter and assessment, information from prior notes written by myself or my colleagues may have been "brought forward" into today's note. My signature on this note, however, is an attestation that I personally performed the exam, history, and/or decision-making noted today, and, unless otherwise indicated, the interactions with patient, family, and staff as well as the review of records all occurred today. I also attest that the listed assessment and stated plan reflect my best clinical judgment today based on the combination of historical information, prior notes, and today's exam/ interactions. When time spent is documented, it refers only to time spent today by the signer, or if indicated, combined time spent today by collaborating physician/nurse practitioner. . Clara Singh May 13, 2017 16:55
[2017-05-13] MEDS: REMOVE OLD DURAGESIC (FENTANYL) PATCH T-DERMAL SCH (18:00)
[2017-05-13] MEDS ORDERED: BISACODYL 10 MG SUPP RECTAL ONE ×2 (18:15)
--- NOTE | 2017-05-13 18:18 | HHI.PR ---
Subjective Remarks no pain complainst , nausea or vomiting feels thirsty and dry mouth Objective Vitals Vital Signs Date Time Temp Pulse Resp B/P Pulse Ox O2 Delivery O2 Flow Rate FiO2 05/13/17 16:00 97.8 82 18 122/75 96 05/13/17 12:00 97.2 77 18 143/65 96 05/13/17 08:00 98.8 79 18 156/68 96 05/13/17 05:00 98.9 70 18 176/74 96 05/13/17 00:00 98.2 65 16 134/60 95 05/12/17 20:00 98.9 91 18 135/63 94 I/O 05/12/17 05/12/17 05/12/17 05/13/17 05/13/17 05/13/17 07:00 15:00 23:00 07:00 15:00 23:00 Intake Total 1191 ml 320 ml 240 ml 1563 ml 120 ml Output Total 1125 ml 625 ml 600 ml 800 ml Balance 66 ml -305 ml -360 ml -800 ml 1563 ml 120 ml Intake Oral 35 ml 320 ml 240 ml 120 ml IV Total 1156 ml 1563 ml Output Urine Total 1125 ml 625 ml 600 ml 800 ml # Voids 2 # Bowel Movements 0 0 Result Diagram: 05/13/17 0900 05/13/17 1250 Imaging Last Impressions Head CT 05/10/17 1347 Signed Impressions: Service Date/Time: Wednesday, May 10, 2017 15:06 - CONCLUSION: No acute disease. Koko Plasencia MD Chest X-Ray 05/10/17 1347 Signed Impressions: Service Date/Time: Wednesday, May 10, 2017 14:10 - CONCLUSION: 1. Redemonstration of large left lower lobe cavitary mass similar to recent CT exam. 2. Otherwise, no acute abnormality. Constantin Erickson MD Chest CT 05/10/17 0000 Signed Impressions: Service Date/Time: Wednesday, May 10, 2017 15:10 - CONCLUSION: 1. Interval worsening cavitary mass within the left lower lobe which now extends through the posterior chest wall and results in extensive lytic destruction of the adjacent posterior ribs. This measures 8.7 x 6.9 cm in greatest dimension. This is consistent with neoplasm. There is also enlargement of the right paratracheal and subcarinal mediastinal as well as left hilar lymphadenopathy which appear necrotic. 2. Underlying emphysematous changes within the lungs bilaterally. 3. Degenerative changes and scoliosis of the thoracic spine. 4. Indeterminate area of decreased perfusion versus complex/solid lesion within the upper pole of the right kidney which will be described in more detail on the CT of the abdomen report done this same day. Koko Plasencia MD Abdomen/Pelvis CT 05/10/17 0000 Signed Impressions: Service Date/Time: Wednesday, May 10, 2017 15:10 - CONCLUSION: 1. Area of decreased perfusion versus complex/solid mass within the upper pole of the right kidney measuring 2.5 x 2.1 cm which is nonspecific. Outpatient PET/CT scan maybe helpful for further evaluation if clinically indicated. 2. Uncomplicated colonic diverticulosis. 3. Degenerative changes and scoliosis of the thoraco-lumbar spine. 4. 1 cm left renal cyst. 5. Enlarging cavitary left lower lobe mass which invades the posterior chest wall and erodes the adjacent ribs which is described in detail in the CT of the chest report done the same day. Koko Plasencia MD Objective Remarks awake and alert, NAD, more awake and alert anicteric lungs decreased breath sounds left, no wheezes regular rhythm abdomen- soft, nontender, good bowel sounds moves all extremities - ff all commands extremities no edema A/P Assessment and Plan 77-year-old female with underlying breast cancer/lung cancer COPD hypertension complaining of fever low-grade fever and generalized weakness with marked leukocytosis SIRS likely secondary to cavitary lung lesion/malignant process underlying Leukocytosis from infection and from malignancy ID- ff- s We'll follow cultures urine and blood. 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 improved Hypercalcemia- give 500 cc bolus. Increae IV fluid rate Lovenox for DVT prophylaxis Discussed with patient and daughter. Discussed advance directives. Pedro Voss MD May 13, 2017 18:18
[2017-05-13] MEDS ORDERED: SODIUM CHLORID 0.9% 500 ML INJ 500 ML IV ONE (18:30)
[2017-05-13 20:00] VITALS: BP 129/59; PULSE 69; RESP 18; TEMP 96.7; O2SAT 95
--- NOTE | 2017-05-13 23:55 | PD.ONC.PN ---
Subjective Subjective Remarks not eating sleepy today does not want to be bothered restless denies any pain d/w nursing Objective Data Date Time Temp Pulse Resp B/P Pulse Ox O2 Delivery O2 Flow Rate FiO2 05/13/17 20:00 96.7 69 18 129/59 95 05/13/17 16:00 97.8 82 18 122/75 96 05/13/17 12:00 97.2 77 18 143/65 96 05/13/17 08:00 98.8 79 18 156/68 96 05/13/17 05:00 98.9 70 18 176/74 96 05/13/17 00:00 98.2 65 16 134/60 95 05/13/17 05/13/17 05/13/17 07:00 15:00 23:00 Intake Total 1563 ml 1670 ml Output Total 800 ml Balance -800 ml 1563 ml 1670 ml Result Diagram: 05/13/17 0900 05/13/17 1250 Laboratory Results Laboratory Tests Test 05/13/17 05/13/17 09:00 12:50 White Blood Count 14.7 TH/MM3 Red Blood Count 3.40 MIL/MM3 Hemoglobin 9.5 GM/DL Hematocrit 29.5 % Mean Corpuscular Volume 86.7 FL Mean Corpuscular Hemoglobin 27.9 PG Mean Corpuscular Hemoglobin 32.2 % Concent Red Cell Distribution Width 14.9 % Platelet Count 194 TH/MM3 Mean Platelet Volume 7.9 FL Neutrophils (%) (Auto) 88.0 % Lymphocytes (%) (Auto) 5.5 % Monocytes (%) (Auto) 4.9 % Eosinophils (%) (Auto) 1.4 % Basophils (%) (Auto) 0.2 % Neutrophils # (Auto) 13.0 TH/MM3 Lymphocytes # (Auto) 0.8 TH/MM3 Monocytes # (Auto) 0.7 TH/MM3 Eosinophils # (Auto) 0.2 TH/MM3 Basophils # (Auto) 0.0 TH/MM3 CBC Comment DIFF FINAL Differential Comment Sodium Level 139 MEQ/L Potassium Level 4.5 MEQ/L Chloride Level 107 MEQ/L Carbon Dioxide Level 27.7 MEQ/L Anion Gap 4 MEQ/L Blood Urea Nitrogen 9 MG/DL Creatinine 0.51 MG/DL Estimat Glomerular Filtration 117 ML/MIN Rate Random Glucose 153 MG/DL Calcium Level 10.5 MG/DL Administered Medications Medications (Trade) Dose Ordered Sig/Bassem Route PRN Reason Start Time Stop Time Status Last Admin Dose Admin IV Flush (NS Flush) 2 ml UNSCH PRN IV FLUSH FLUSH AFTER USING IV ACCESS 05/10/17 14:00 05/10/17 15:27 Anastrozole (Arimidex) 1 mg DAILY PO 05/11/17 09:00 05/13/17 08:22 Mirtazapine (Remeron) 15 mg DAILY PO 05/11/17 09:00 05/13/17 08:22 Senna/Docusate Sodium (Ling-Colace) 2 tab BID PO 05/10/17 21:00 05/13/17 20:39 Metoprolol Succinate (Toprol Xl) 100 mg DAILY PO 05/11/17 09:00 05/13/17 08:22 Miscellaneous Information 1 Q72H T-DERMAL 05/10/17 18:00 05/13/17 18:00 Amlodipine Besylate (Norvasc) 5 mg DAILY PO 05/11/17 09:00 05/13/17 08:22 Oxycodone HCl 5 mg 5 mg Q4HR PRN PO PAIN SCALE 4 TO 10 05/10/17 18:45 05/13/17 20:56 Potassium Chloride/Dextrose/ Sod Cl (D5-NS + KCl 20 Meq Inj) 1,000 ml @ 100 mls/hr Q10H IV 05/10/17 18:45 05/13/17 20:49 Hydromorphone HCl (Dilaudid Pf Inj) 0.5 mg Q4H PRN IV PUSH PAIN SCALE 4 TO 10;IF NO PO 05/11/17 11:45 05/12/17 04:42 Quetiapine Fumarate (SEROquel) 12.5 mg BID PO 05/11/17 18:15 05/13/17 20:39 Potassium Chloride (KCl) 40 meq DAILY PO 05/13/17 09:00 05/13/17 08:21 Objective Remarks GENERAL: nad, sleepy SKIN: Warm and dry.. NECK: Supple, trachea midline. No JVD or lymphadenopathy. LYMPHATIC: No adenopathy. CARDIOVASCULAR: Regular rate and rhythm without murmurs. RESPIRATORY: Breath sounds equal bilaterally. No accessory muscle use. chest wall pain GASTROINTESTINAL: Abdomen soft, non-tender, nondistended. EXTREMITIES: No cyanosis, or edema. Assessment/Plan Problem List: (1) Breast cancer metastasized to lung Status: Acute Plan: --CT chest showed interval worsening of the cavitary mass within the left lower lobe and extending into the posterior chest wall resulting in extensive lytic destruction of the adjacent posterior ribs. --CT abdomen and pelvis-->no additional findings --MRI brain pending --currently on Arimidex --Dr. Yuen, radiation oncology following for palliative XRT to chest wall --palliative care also following to assess goals (2) Leukocytosis Status: Acute Plan: --most likely reactive -- will rule out any underlying infection. --agree with IV antibiotics. --blood cultures no growth --UC growing corynebacterium species. (3) Cancer associated pain Status: Acute Plan: --Fentanyl 25mcg patch + Oxycodone or dilaudid for breakthrough pain (4) Microcytic anemia Status: Acute Plan: --will obtain iron studies. monitor, no transfusion needed at present. Assessment 77y/o female with metastatic breast cancer (currently on Arimidex) admitted with intractable pain and altered sensorium and hallucinations. h/o COPD and Hypertension. Plan 1. family had discussion with palliative care, want aggressive care 2. Pain control--continue pain meds. Rad Onc to start palliative XRT to chest wall 3. Patient is malnourished--Albumin 1.8. National Sales Manager consult. encourage oral intake. ensure tid with meals. 5. Deconditioning/weak 4. supportive care for now. Problem Qualifiers (1) Leukocytosis: Qualified Code: D72.829 - Leukocytosis, unspecified type Zia Syed MD May 13, 2017 23:55
[2017-05-14] VITALS: BP 145/56; PULSE 69; RESP 18; TEMP 98.7; O2SAT 96
[2017-05-14 04:00] VITALS: BP 148/57; PULSE 64; RESP 18; TEMP 96.7; O2SAT 96
[2017-05-14 08:00] VITALS: BP 151/65; PULSE 60; RESP 18; TEMP 99.3; O2SAT 96
[2017-05-14] MEDS: POTASSIUM CHLORIDE 10 MEQ CONTROLLED RELEASE TAB PO SCH (09:00)
[2017-05-14] MEDS: TRIAMTERENE 25 MG PO SCH (09:00)
[2017-05-14 09:15] LABS: ANION GAP 7 MEQ/L (5-15); AST (GOT) 16 U/L (15-37); BICARBONATE 25.4 MEQ/L (21.0-32.0); BLOOD UREA NITROGEN 8 MG/DL (7-18); CHLORIDE 104 MEQ/L (98-107); POTASSIUM 4.3 MEQ/L (3.5-5.1); SODIUM (NA) 136 MEQ/L (136-145)
[2017-05-14 09:20] LABS: ALKALINE PHOSPHATASE 64 U/L (45-117); ALT (GPT) 18 U/L (10-53); GLOMERULAR FILTRATION RATE 120 ML/MIN (>89); TOTAL BILIRUBIN ADULT 0.6 MG/DL (0.2-1.0)
[2017-05-14] MEDS: amLODIPine BESYLATE 5 MG TAB PO SCH (10:31)
[2017-05-14] MEDS: ANASTROZOLE 1 MG TAB PO SCH (10:31)
[2017-05-14] MEDS: METOPROLOL SUCCINATE 50 MG EXTENDED RELEASE TAB PO SCH (10:31)
[2017-05-14] MEDS: MIRTAZAPINE 15 MG TAB PO SCH (10:31)
[2017-05-14] MEDS: QUEtiapine FUMARATE 25 MG TAB PO SCH ×2 (10:32→19:35)
[2017-05-14] MEDS: DOCUSATE SODIUM 50 MG/SENNA 8.6 MG TAB PO SCH ×2 (10:33→19:34)
--- NOTE | 2017-05-14 11:10 | PD.ONC.PN ---
Subjective Subjective Remarks Afebrile overnight. Patient fatigued. States she doesn't know what's going on. "I have pain all over." Objective Data Date Time Temp Pulse Resp B/P Pulse Ox O2 Delivery O2 Flow Rate FiO2 05/14/17 08:00 99.3 60 18 151/65 96 05/14/17 04:00 96.7 64 18 148/57 96 05/14/17 00:00 98.7 69 18 145/56 96 05/13/17 22:00 19 05/13/17 20:00 96.7 69 18 129/59 95 05/13/17 16:00 97.8 82 18 122/75 96 05/13/17 12:00 97.2 77 18 143/65 96 05/14/17 05/14/17 05/14/17 07:00 15:00 23:00 Intake Total 877 ml Output Total 800 ml Balance 77 ml Result Diagram: 05/13/17 0900 05/14/17 0737 Laboratory Results Laboratory Tests Test 05/13/17 05/14/17 12:50 07:37 Sodium Level 139 MEQ/L 136 MEQ/L Potassium Level 4.5 MEQ/L 4.3 MEQ/L Chloride Level 107 MEQ/L 104 MEQ/L Carbon Dioxide Level 27.7 MEQ/L 25.4 MEQ/L Anion Gap 4 MEQ/L 7 MEQ/L Blood Urea Nitrogen 9 MG/DL 8 MG/DL Creatinine 0.51 MG/DL 0.50 MG/DL Estimat Glomerular Filtration 117 ML/MIN 120 ML/MIN Rate Random Glucose 153 MG/DL 126 MG/DL Calcium Level 10.5 MG/DL 10.0 MG/DL Total Bilirubin 0.6 MG/DL Aspartate Amino Transf 16 U/L (AST/SGOT) Alanine Aminotransferase 18 U/L (ALT/SGPT) Alkaline Phosphatase 64 U/L Total Protein 5.1 GM/DL Albumin 1.7 GM/DL Administered Medications Medications (Trade) Dose Ordered Sig/Bassem Route PRN Reason Start Time Stop Time Status Last Admin Dose Admin IV Flush (NS Flush) 2 ml UNSCH PRN IV FLUSH FLUSH AFTER USING IV ACCESS 05/10/17 14:00 05/10/17 15:27 Anastrozole (Arimidex) 1 mg DAILY PO 05/11/17 09:00 05/14/17 10:31 Mirtazapine (Remeron) 15 mg DAILY PO 05/11/17 09:00 05/14/17 10:31 Senna/Docusate Sodium (Ling-Colace) 2 tab BID PO 05/10/17 21:00 05/14/17 10:33 Metoprolol Succinate (Toprol Xl) 100 mg DAILY PO 05/11/17 09:00 05/14/17 10:31 Miscellaneous Information 1 Q72H T-DERMAL 05/10/17 18:00 05/13/17 18:00 Amlodipine Besylate (Norvasc) 5 mg DAILY PO 05/11/17 09:00 05/14/17 10:31 Oxycodone HCl 5 mg 5 mg Q4HR PRN PO PAIN SCALE 4 TO 10 05/10/17 18:45 05/14/17 10:32 Potassium Chloride/Dextrose/ Sod Cl (D5-NS + KCl 20 Meq Inj) 1,000 ml @ 100 mls/hr Q10H IV 05/10/17 18:45 05/13/17 20:49 Hydromorphone HCl (Dilaudid Pf Inj) 0.5 mg Q4H PRN IV PUSH PAIN SCALE 4 TO 10;IF NO PO 05/11/17 11:45 05/12/17 04:42 Quetiapine Fumarate (SEROquel) 12.5 mg BID PO 05/11/17 18:15 05/14/17 10:32 Potassium Chloride (KCl) 40 meq DAILY PO 05/13/17 09:00 05/13/17 08:21 Objective Remarks GENERAL: Elderly female, lying in bed, appears fatigued. SKIN: Warm and dry. HEAD: Normocephalic. EYES: No injection or drainage. NECK: Supple, trachea midline. CARDIOVASCULAR: Regular rate and rhythm RESPIRATORY: anterior hewitt clear. GASTROINTESTINAL: Abdomen soft, non-tender, nondistended. EXTREMITIES: No cyanosis NEUROLOGICAL: awake and alert. normal speech. moving extremities. Assessment/Plan Problem List: (1) Breast cancer metastasized to lung Status: Acute Plan: --CT chest showed interval worsening of the cavitary mass within the left lower lobe and extending into the posterior chest wall resulting in extensive lytic destruction of the adjacent posterior ribs. --CT abdomen and pelvis-->no additional findings --MRI brain no mets --currently on Arimidex --Dr. Yuen, radiation oncology following for palliative XRT to chest wall --palliative care also following, plan now is for patient to bed d/c and returned to [place] to be with family. (2) Leukocytosis Status: Acute Plan: - likely reactive --blood cultures no growth --UC growing corynebacterium species. (3) Cancer associated pain Status: Acute Plan: --on Oxycodone or dilaudid for breakthrough pain (4) Microcytic anemia Status: Acute Plan: monitor, no transfusion needed at present. Assessment 77y/o female with metastatic breast cancer (currently on Arimidex) admitted with intractable pain and altered sensorium and hallucinations. h/o COPD and Hypertension. Plan 1. continue pain management with Oxycodone/Dilaudid. will be cautious about increasing pain meds as patient remains altered/somnolent 2. case management working with daughter, tentative plan for patient to fly back to [place] on Wednesday 3. continue supportive care. Attending Statement The exam, history, and the medical decision-making described in the above note were completed with the assistance of the mid-level provider. I reviewed and agree with the findings presented. I attest that I had a [id number] encounter with the patient on the same day, and personally performed and documented my assessment and findings in the medical record Problem Qualifiers (1) Leukocytosis: Qualified Code: D72.829 - Leukocytosis, unspecified type Meenu Maria May 14, 2017 11:10 Zia Syed MD May 15, 2017 22:35
[2017-05-14 12:00] VITALS: BP 112/57; PULSE 69; RESP 18; TEMP 99.3; O2SAT 95
--- NOTE | 2017-05-14 13:31 | HHI.PR ---
Subjective Remarks awake and alert, more interactive and appropriate po intake improving Objective Vitals Vital Signs Date Time Temp Pulse Resp B/P Pulse Ox O2 Delivery O2 Flow Rate FiO2 05/14/17 12:00 99.3 69 18 112/57 95 05/14/17 08:00 99.3 60 18 151/65 96 05/14/17 04:00 96.7 64 18 148/57 96 05/14/17 00:00 98.7 69 18 145/56 96 05/13/17 22:00 19 05/13/17 20:00 96.7 69 18 129/59 95 05/13/17 16:00 97.8 82 18 122/75 96 I/O 05/13/17 05/13/17 05/13/17 05/14/17 05/14/17 05/14/17 07:00 15:00 23:00 07:00 15:00 23:00 Intake Total 1563 ml 1670 ml 877 ml Output Total 800 ml 500 ml 800 ml Balance -800 ml 1563 ml 1170 ml 77 ml Intake Oral 480 ml 120 ml IV Total 1563 ml 1190 ml 757 ml Output Urine Total 800 ml 500 ml 800 ml # Voids 3 # Bowel Movements 1 2 Result Diagram: 05/13/17 0900 05/14/17 0737 Imaging Last Impressions Head CT 05/10/17 1347 Signed Impressions: Service Date/Time: Wednesday, May 10, 2017 15:06 - CONCLUSION: No acute disease. Koko Plasencia MD Chest X-Ray 05/10/177 Signed Impressions: Service Date/Time: Wednesday, May 10, 2017 14:10 - CONCLUSION: 1. Redemonstration of large left lower lobe cavitary mass similar to recent CT exam. 2. Otherwise, no acute abnormality. Constantin Erickson MD Chest CT 05/10/17 0000 Signed Impressions: Service Date/Time: Wednesday, May 10, 2017 15:10 - CONCLUSION: 1. Interval worsening cavitary mass within the left lower lobe which now extends through the posterior chest wall and results in extensive lytic destruction of the adjacent posterior ribs. This measures 8.7 x 6.9 cm in greatest dimension. This is consistent with neoplasm. There is also enlargement of the right paratracheal and subcarinal mediastinal as well as left hilar lymphadenopathy which appear necrotic. 2. Underlying emphysematous changes within the lungs bilaterally. 3. Degenerative changes and scoliosis of the thoracic spine. 4. Indeterminate area of decreased perfusion versus complex/solid lesion within the upper pole of the right kidney which will be described in more detail on the CT of the abdomen report done this same day. Koko Plasencia MD Abdomen/Pelvis CT 05/10/17 0000 Signed Impressions: Service Date/Time: Wednesday, May 10, 2017 15:10 - CONCLUSION: 1. Area of decreased perfusion versus complex/solid mass within the upper pole of the right kidney measuring 2.5 x 2.1 cm which is nonspecific. Outpatient PET/CT scan maybe helpful for further evaluation if clinically indicated. 2. Uncomplicated colonic diverticulosis. 3. Degenerative changes and scoliosis of the thoraco-lumbar spine. 4. 1 cm left renal cyst. 5. Enlarging cavitary left lower lobe mass which invades the posterior chest wall and erodes the adjacent ribs which is described in detail in the CT of the chest report done the same day. Koko Plasencia MD Objective Remarks awake and alert, NAD, awake and alert, oriented x 3 anicteric lungs decreased breath sounds left, no wheezes regular rhythm abdomen- soft, nontender, good bowel sounds, no guarding moves all extremities - ff all commands extremities no edema moves all extremities equally A/P Assessment and Plan 77-year-old female with underlying breast cancer/lung cancer COPD hypertension complaining of fever low-grade fever and generalized weakness with marked leukocytosis SIRS likely secondary to cavitary lung lesion/malignant process underlying Leukocytosis from infection and from malignancy ID- ff- s We'll follow cultures urine and blood. 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 improved Hypercalcemia- give 500 cc bolus. Increae IV fluid rate Lovenox for DVT prophylaxis Discussed with patient and daughter. dC planning- patient has a flight back to [place] leaving from [place] at 7 am Wednesday will be DC here on wednesday 3 am- and will be travelling on the flight with a nurse Pedro Voss MD May 14, 2017 13:31
[2017-05-14] MEDS: HYDROmorphone HCL PF 1 MG/ML VIAL IV PUSH PRN (13:40)
--- NOTE | 2017-05-14 14:17 | HHI.IDPN ---
Subjective Subjective Remarks Notes reviewed No further fever BC negative WBC continues to improve Abx stopped yesterday Mental status better Brain MRI no mets D/C plans noted - to leave Wednesday and go to airport for flight to [place] Antibiotics None Lines PIV Past Medical History Reviewed Allergies: Coded Allergies: No Known Allergies (Unverified , 05/10/17) Objective . Vital Signs Date Time Temp Pulse Resp B/P Pulse Ox O2 Delivery O2 Flow Rate FiO2 05/14/17 12:00 99.3 69 18 112/57 95 05/14/17 08:00 99.3 60 18 151/65 96 05/14/17 04:00 96.7 64 18 148/57 96 05/14/17 00:00 98.7 69 18 145/56 96 05/13/17 22:00 19 05/13/17 20:00 96.7 69 18 129/59 95 05/13/17 16:00 97.8 82 18 122/75 96 05/13/17 05/13/17 05/14/17 15:00 23:00 07:00 Intake Total 1563 ml 1670 ml 877 ml Output Total 500 ml 800 ml Balance 1563 ml 1170 ml 77 ml Intake Oral 480 ml 120 ml IV Total 1563 ml 1190 ml 757 ml Output Urine Total 500 ml 800 ml # Voids 3 # Bowel Movements 1 2 . Laboratory Tests Test 05/13/17 09:00 White Blood Count 14.7 TH/MM3 Red Blood Count 3.40 MIL/MM3 Hemoglobin 9.5 GM/DL Hematocrit 29.5 % Mean Corpuscular Volume 86.7 FL Mean Corpuscular Hemoglobin 27.9 PG Mean Corpuscular Hemoglobin 32.2 % Concent Red Cell Distribution Width 14.9 % Platelet Count 194 TH/MM3 Mean Platelet Volume 7.9 FL Neutrophils (%) (Auto) 88.0 % Lymphocytes (%) (Auto) 5.5 % Monocytes (%) (Auto) 4.9 % Eosinophils (%) (Auto) 1.4 % Basophils (%) (Auto) 0.2 % Neutrophils # (Auto) 13.0 TH/MM3 Lymphocytes # (Auto) 0.8 TH/MM3 Monocytes # (Auto) 0.7 TH/MM3 Eosinophils # (Auto) 0.2 TH/MM3 Basophils # (Auto) 0.0 TH/MM3 CBC Comment DIFF FINAL Differential Comment Laboratory Tests Test 05/12/17 05/13/17 05/14/17 17:51 12:50 07:37 Iron Level 21 MCG/DL Total Iron Binding Capacity 174 MCG/DL Percent Iron Saturation 12.1 % Ferritin 591 NG/ML Vitamin B12 Level 587 PG/ML Sodium Level 139 MEQ/L 136 MEQ/L Potassium Level 4.5 MEQ/L 4.3 MEQ/L Chloride Level 107 MEQ/L 104 MEQ/L Carbon Dioxide Level 27.7 MEQ/L 25.4 MEQ/L Anion Gap 4 MEQ/L 7 MEQ/L Blood Urea Nitrogen 9 MG/DL 8 MG/DL Creatinine 0.51 MG/DL 0.50 MG/DL Estimat Glomerular Filtration 117 ML/MIN 120 ML/MIN Rate Random Glucose 153 MG/DL 126 MG/DL Calcium Level 10.5 MG/DL 10.0 MG/DL Total Bilirubin 0.6 MG/DL Aspartate Amino Transf 16 U/L (AST/SGOT) Alanine Aminotransferase 18 U/L (ALT/SGPT) Alkaline Phosphatase 64 U/L Total Protein 5.1 GM/DL Albumin 1.7 GM/DL Imaging Last Impressions Head CT 05/10/177 Signed Impressions: Service Date/Time: Wednesday, May 10, 2017 15:06 - CONCLUSION: No acute disease. Koko Plasencia MD Chest X-Ray 05/10/171346 Signed Impressions: Service Date/Time: Wednesday, May 10, 2017 14:10 - CONCLUSION: 1. Redemonstration of large left lower lobe cavitary mass similar to recent CT exam. 2. Otherwise, no acute abnormality. Constantin Erickson MD Chest CT 05/10/17 0000 Signed Impressions: Service Date/Time: Wednesday, May 10, 2017 15:10 - CONCLUSION: 1. Interval worsening cavitary mass within the left lower lobe which now extends through the posterior chest wall and results in extensive lytic destruction of the adjacent posterior ribs. This measures 8.7 x 6.9 cm in greatest dimension. This is consistent with neoplasm. There is also enlargement of the right paratracheal and subcarinal mediastinal as well as left hilar lymphadenopathy which appear necrotic. 2. Underlying emphysematous changes within the lungs bilaterally. 3. Degenerative changes and scoliosis of the thoracic spine. 4. Indeterminate area of decreased perfusion versus complex/solid lesion within the upper pole of the right kidney which will be described in more detail on the CT of the abdomen report done this same day. Koko Plasencia MD Abdomen/Pelvis CT 05/10/17 0000 Signed Impressions: Service Date/Time: Wednesday, May 10, 2017 15:10 - CONCLUSION: 1. Area of decreased perfusion versus complex/solid mass within the upper pole of the right kidney measuring 2.5 x 2.1 cm which is nonspecific. Outpatient PET/CT scan maybe helpful for further evaluation if clinically indicated. 2. Uncomplicated colonic diverticulosis. 3. Degenerative changes and scoliosis of the thoraco-lumbar spine. 4. 1 cm left renal cyst. 5. Enlarging cavitary left lower lobe mass which invades the posterior chest wall and erodes the adjacent ribs which is described in detail in the CT of the chest report done the same day. Koko Plasencia MD Physical Exam GENERAL: Awake and alert, not in respiratory distress. SKIN: Warm and dry. No generalized rash HEENT: [place] conjunctiva. No petechia or hemorrhage. Pupils equal, round and reactive to light. No scleral icterus. No injection or drainage. Nose without bleeding or purulent nasal discharge. Mucous membranes moist. No oral lesions noted. NECK: Trachea midline. Supple and not tender, no meningeal signs CARDIOVASCULAR: Regular rate and rhythm. No murmurs, rubs or gallops heard RESPIRATORY: Clear to auscultation. Breath sounds equal bilaterally. No rales , wheezing or rhonchi ABDOMEN: Soft, nondistended, with mild diffuse tenderness. Bowel sounds present and normoactive. No guarding. No rebound. No organomegaly. EXTREMITIES: No clubbing, cyanosis, or edema.No joint effusion, has good ROM. No calf tenderness. Well perfused and warm. NEUROLOGICAL: Non-focal PSYCHIATRIC: Normal affect, calm and cooperative. LINE: No evidence of infection Assessment & Plan Remarks IMPRESSION Leukocytosis, etiology? improving - no obvious source of infection - no clinical evidence of PNA, UA ok - ?bacteremia, but she clinically looks good, all BC negative, has no line - likely due to her malignancy Breast CA with mets to lung, enlarging and invading ribs Increasing back pain due to enlarging lung mass and into ribs R kidney mass, etiology? Confusion, ?due to med - better RECOMMENDATION Patient stable off Abx Clinically doing wel from ID standpoint I will sign off Agree with D/C plans Viry Lopez MD May 14, 2017 14:17
--- NOTE | 2017-05-14 15:54 | HHI.HCPN ---
Reason for visit a. To assist with evaluation and management of symptoms including: pain, generalized weakness, confusion, decreased appetite b. To assist medical decision maker(s) with: better understanding of current medical conditions; weighing benefits/burdens of medical treatment options; making medical treatment decisions. . Subjective/Interval History Ms. Brown is a 77-year-old female with stage IV metastatic cancer who presented to [facility] ED on 05/10/2017 for evaluation of altered mental status. Dr. Syed is her oncologist. The patient's sister was visiting from [place] and noticed the patient had declined over a 4 day period. The sister reported the patient was increasingly confused and having hallucinations; the sister also noticed patient had not been eating or drinking well. PMH includes chronic back pain, hypertension and COPD. The patient was originally diagnosed with breast cancer in 2015 after a routine screening mammogram detected an abnormality. The patient underwent a left mastectomy after a biopsy definitively diagnosed invasive breast cancer. The patient subsequently declined further evaluation/treatment with radiation and medical oncology. Now with metastatic disease to the lungs, enlarging and invading the ribs. An MRI of the brain on 05/12/17 showed no metastatic disease. Patient is on total blockade therapy, anastrozole. Radiation oncology, Dr. Yuen, feels the patient may benefit from palliative radiation to the chest wall to control pain and prevent further bone damage/lung compromise. Patient and family have mutually decided to postpone radiation while they coordinate medical transportation to [place], [place] where the patient's daughter lives, and arrangements are being made for the patient to be evaluated at the [facility]. Dr. Voss and case management are aware. staffing account manager, Roseann, is working with the family to coordinate plans-patient has a flight scheduled from [place] at 7 AM on Wednesday05/16/2017 and will be discharged on Wednesday at 3 AM. She will be traveling on the flight with a privately hired nurse. Patient is more alert today than yesterday after the fentanyl patch was discontinued, however remains intermittently confused. Attempted to discuss designation of a health care surrogate, but the patient was unable/unwilling to choose who she want want to be her healthcare decision making in the event that she was incapacitated to make these decisions independently.. She denied pain on exam. PRN Oxycodone and IV Dilaudid are available every 4 hours. In the past 24 hours the patient has received Oxycodone 5 mg x 2 and Dilaudid 0.5 mg IV 1. HR 69, respirations 18, BP 112/57, oxygen saturation 95% on room air, oral temperature 99.3 No recent lab work is available. Blood cultures negative to date, urine culture growing Corynebacterium Sp. Antibiotics were discontinued. . Advance Directives Living Will: Never completed Health Care Surrogate: Never completed Durable Power of Segmental Paver Installer: Never completed Advance Directive Specifics Documented care wishes: No written advanced directives were completed. . Objective Vital Signs Date Time Temp Pulse Resp B/P Pulse Ox O2 Delivery O2 Flow Rate FiO2 05/14/17 12:00 99.3 69 18 112/57 95 05/14/17 08:00 99.3 60 18 151/65 96 05/14/17 04:00 96.7 64 18 148/57 96 05/14/17 00:00 98.7 69 18 145/56 96 05/13/17 22:00 19 05/13/17 20:00 96.7 69 18 129/59 95 05/13/17 16:00 97.8 82 18 122/75 96 Intake & Output 05/14/17 05/14/17 07:00 19:00 Intake Total 2427 ml 240 ml Output Total 1300 ml Balance 1127 ml 240 ml Intake Oral 480 ml 240 ml IV Total 1947 ml Output Urine Total 1300 ml # Voids 1 2 # Bowel Movements 3 . Physical Exam CONSTITUTIONAL/GENERAL: This is a frail, older patient in no apparent distress. TUBES/LINES/DRAINS: PIV 1 SKIN: No jaundice, rashes, or lesions. Skin temperature appropriate. Not diaphoretic. HEAD: Atraumatic. Normocephalic. EYES: Pupils equal and round and reactive. No scleral icterus. No injection or drainage. Fundi not examined. ENT: Hearing grossly normal. Nose without bleeding or purulent drainage. NECK: Trachea midline. CARDIOVASCULAR: Regular rate and rhythm without murmurs, gallops, or rubs. No JVD. Peripheral pulses symmetric. RESPIRATORY/CHEST: Symmetric, unlabored respirations. Clear to auscultation. Breath sounds equal bilaterally. No wheezes, rales, or rhonchi. GASTROINTESTINAL: Abdomen soft, non-tender, nondistended. Bowel sounds present. GENITOURINARY: Without palpable bladder distension. MUSCULOSKELETAL: Extremities without clubbing, cyanosis, or edema. LYMPHATICS: No palpable cervical or supraclavicular adenopathy. NEUROLOGICAL: Awake, more alert today remains intermittently confused. Moves all extremities. PSYCHIATRIC: No apparent anxiety, agitation. No hallucinations at time of exam . Diagnostic Tests Laboratory Laboratory Tests Test 05/11/17 05/12/17 05/12/17 05/13/17 19:25 06:54 17:51 09:00 Lactic Acid Level 1.8 mmol/L (0.4-2.0) White Blood Count 17.0 TH/MM3 14.7 TH/MM3 (4.0-11.0) (4.0-11.0) Red Blood Count 3.26 MIL/MM3 3.40 MIL/MM3 (4.00-5.30) (4.00-5.30) Hemoglobin 9.3 GM/DL 9.5 GM/DL (11.6-15.3) (11.6-15.3) Hematocrit 27.8 % 29.5 % (35.0-46.0) (35.0-46.0) Mean Corpuscular Volume 85.4 FL 86.7 FL (80.0-100.0) (80.0-100.0) Mean Corpuscular Hemoglobin 28.6 PG 27.9 PG (27.0-34.0) (27.0-34.0) Mean Corpuscular Hemoglobin 33.5 % 32.2 % Concent (32.0-36.0) (32.0-36.0) Red Cell Distribution Width 14.6 % 14.9 % (11.6-17.2) (11.6-17.2) Platelet Count 188 TH/MM3 194 TH/MM3 (150-450) (150-450) Mean Platelet Volume 7.5 FL 7.9 FL (7.0-11.0) (7.0-11.0) Neutrophils (%) (Auto) 88.9 % 88.0 % (16.0-70.0) (16.0-70.0) Lymphocytes (%) (Auto) 5.6 % 5.5 % (9.0-44.0) (9.0-44.0) Monocytes (%) (Auto) 4.4 % (0.0-8.0) 4.9 % (0.0-8.0) Eosinophils (%) (Auto) 0.9 % (0.0-4.0) 1.4 % (0.0-4.0) Basophils (%) (Auto) 0.2 % (0.0-2.0) 0.2 % (0.0-2.0) Neutrophils # (Auto) 15.1 TH/MM3 13.0 TH/MM3 (1.8-7.7) (1.8-7.7) Lymphocytes # (Auto) 1.0 TH/MM3 0.8 TH/MM3 (1.0-4.8) (1.0-4.8) Monocytes # (Auto) 0.7 TH/MM3 0.7 TH/MM3 (0-0.9) (0-0.9) Eosinophils # (Auto) 0.2 TH/MM3 0.2 TH/MM3 (0-0.4) (0-0.4) Basophils # (Auto) 0.0 TH/MM3 0.0 TH/MM3 (0-0.2) (0-0.2) CBC Comment DIFF FINAL DIFF FINAL Differential Comment Sodium Level 137 MEQ/L (136-145) Potassium Level 3.0 MEQ/L (3.5-5.1) Chloride Level 101 MEQ/L (98-107) Carbon Dioxide Level 25.2 MEQ/L (21.0-32.0) Anion Gap 11 MEQ/L (5-15) Blood Urea Nitrogen 7 MG/DL (7-18) Creatinine 0.48 MG/DL (0.50-1.00) Estimat Glomerular Filtration 126 ML/MIN Rate (>89) Random Glucose 162 MG/DL (74-106) Calcium Level 9.0 MG/DL (8.5-10.1) Iron Level 21 MCG/DL (50-170) Total Iron Binding Capacity 174 MCG/DL (250-450) Percent Iron Saturation 12.1 % (20-50) Ferritin 591 NG/ML (8-252) Vitamin B12 Level 587 PG/ML (193-986) Test 05/13/17 05/14/17 12:50 07:37 Sodium Level 139 MEQ/L 136 MEQ/L (136-145) (136-145) Potassium Level 4.5 MEQ/L 4.3 MEQ/L (3.5-5.1) (3.5-5.1) Chloride Level 107 MEQ/L 104 MEQ/L (98-107) (98-107) Carbon Dioxide Level 27.7 MEQ/L 25.4 MEQ/L (21.0-32.0) (21.0-32.0) Anion Gap 4 MEQ/L (5-15) 7 MEQ/L (5-15) Blood Urea Nitrogen 9 MG/DL (7-18) 8 MG/DL (7-18) Creatinine 0.51 MG/DL 0.50 MG/DL (0.50-1.00) (0.50-1.00) Estimat Glomerular Filtration 117 ML/MIN 120 ML/MIN Rate (>89) (>89) Random Glucose 153 MG/DL 126 MG/DL (74-106) (74-106) Calcium Level 10.5 MG/DL 10.0 MG/DL (8.5-10.1) (8.5-10.1) Total Bilirubin 0.6 MG/DL (0.2-1.0) Aspartate Amino Transf 16 U/L (15-37) (AST/SGOT) Alanine Aminotransferase 18 U/L (10-53) (ALT/SGPT) Alkaline Phosphatase 64 U/L (45-117) Total Protein 5.1 GM/DL (6.4-8.2) Albumin 1.7 GM/DL (3.4-5.0) . Result Diagram: 05/13/17 0900 05/14/17 0737 Assessment and Plan Disease Oriented Problem List: (1) HTN (hypertension) (2) COPD (chronic obstructive pulmonary disease) (3) Breast cancer metastasized to lung Comment: = CT chest showing worsening of the cavitary mass within the left lower lobe that extends into the posterior chest wall resulting in extensive lytic destruction of the adjacent posterior ribs = MR brain with contrast pending = Patient currently on anastrozole = Radiation oncology, Dr. Yuen, following with recommendations for palliative radiation to the chest wall = Palliative Care following to assist with symptom management and to discuss with the family the benefits and burdens of her current illnesses and the options regarding future care. (4) Leukocytosis Comment: = Blood cultures negative to date = Urine culture growing corynebacterium species = Afebrile = Antibiotics discontinued 05/14/17 . Symptom Scale: (1) Pain (2) Confusion (3) Generalized weakness (4) Decreased appetite Pertinent Non-Medical Issues Psychosocial: Ms. Brown is originally from [facility] but now lives in [place]. She has one sister (Rayne) who lives in [place]. The patient was for a short period of time, in the 1969. She has 2 adult children, a daughter (Ranjana) and a son (Alfredo). Both of her children live in [place], [place]. She is currently estranged from her son. Patient worked in the [employer] industry for many years; she is now retired. The patient is single and lives alone in a condo in [place]. Spiritual: Non-sabianist per sister Legal: Per [place] statutes, in the absence of written advanced directives healthcare proxy decision-making falls to the patient's 2 adult children Ethical issues impacting care: No known ethical issues impacting care at this time. . Important Contacts Ranjana Amin, daughter: [phone] Camryn Carl, sister: [phone] Dacia, sx-eiwkvikc-fa-law: [phone] . Prognosis Ms. Brown is a 77-year-old female who was first diagnosed with breast cancer in 2015 and underwent a left mastectomy; she declined further evaluation by radiation and medical oncology. In Mar, 2017 the patient developed left flank pain. CT imaging of the chest revealed cavitary mass in the left lower lobe and a lung biopsy confirmed metastatic adenocarcinoma consistent with breast primary. The patient was started on hormone blockade therapy with anastrozole. Patient has experienced increased pain, weakness, weight loss and confusion. Recent imaging reveals disease progression. Radiation oncology is recommending palliative radiation to the chest wall. Given the patient's extensive metastatic disease along with her recent decline, long-term prognosis is poor. . Code Status: Full Code Plan * FULL CODE * Decision-making: Per [place] statutes, in the absence of written advanced directives healthcare proxy decision making will fall to the patient's 2 adult children. * Attempted to discuss designation of a health care surrogate, but the patient was unable/unwilling to choose who she want want to be her healthcare decision making in the event that she was incapacitated to make these decisions independently. * Goals: Goals remain aggressive at this time. * Patient and family have mutually decided to postpone radiation while they coordinate medical transportation to [place], [place] where the patient's daughter lives, and arrangements are being made for the patient to be evaluated at the [facility]. Dr. Voss and case management are aware. staffing account manager, Roseann, is working with the family to coordinate plans-patient has slight scheduled from [place] at 7 AM on Wednesday05/16/2017 and will be discharged on Wednesday at 3 AM. She will be traveling on the flight with a privately hired nurse. * Symptom managementconfusion: Patient was experiencing altered mentation, confusion, hallucinations on admission. MRI of the brain with contrast and without contrast negative on 05/12/17. Patient's remains intermittently confused but symptoms have decreased since discontinuing the patient's Duragesic patch on 05/13/17. * Symptom managementpain: Patient denies pain on exam. However, having ongoing back pain likely related to tumor load and rib involvement. Duragesic 25mcg patch every 72 hours discontinued on 05/13/17 because the family about the patient's progressively increased confusion began when the patient was started on this new medication. Patient denies pain on exam PRN Oxycodone and Hydromorphone are available every 4 hours and is being sparingly used. Palliative care will monitor PRN requirements and make recommendations as indicated. * Symptom managementdecreased appetite: Patient appetite is poor with a 15 pound weight loss reported in the past 6 weeks. Protein: 4.9, albumin 1.8. BMI 20.5 * Radiation oncology and medical oncology are following. Patient is on total blockade therapy, anastrozole. Radiation oncology, Dr. Yuen, feels the patient may benefit from palliative radiation to the chest wall to control pain and prevent further bone damage/lung compromise but the family has decided to postpone radiation until the patient can be transported to [facility] where she will be evaluated at the [facility]. * Palliative care will continue to follow throughout the patient's hospitalization to establish trust, assist with symptom management and clarification of medical treatment goals. . Attestation To help prompt me to consider important information that might be impacting today's encounter and assessment, information from prior notes written by myself or my colleagues may have been "brought forward" into today's note. My signature on this note, however, is an attestation that I personally performed the exam, history, and/or decision-making noted today, and, unless otherwise indicated, the interactions with patient, family, and staff as well as the review of records all occurred today. I also attest that the listed assessment and stated plan reflect my best clinical judgment today based on the combination of historical information, prior notes, and today's exam/ interactions. When time spent is documented, it refers only to time spent today by the signer, or if indicated, combined time spent today by collaborating physician/nurse practitioner. . Clara Singh May 14, 2017 15:54
[2017-05-14 16:00] VITALS: BP 100/56; PULSE 67; RESP 16; TEMP 98.6; O2SAT 94
[2017-05-14] MEDS: D5-NS + KCL 20 MEQ INJ 1,000 ML IV SCH ×2 (19:27→23:20)
[2017-05-14 20:00] VITALS: BP 108/58; PULSE 72; RESP 16; TEMP 99.1; O2SAT 94
[2017-05-15] VITALS: BP 110/56; PULSE 69; RESP 19; TEMP 98; O2SAT 94
[2017-05-15 04:00] VITALS: BP 112/60; PULSE 70; RESP 18; TEMP 98.6; O2SAT 95
[2017-05-15 08:00] VITALS: BP 132/70; PULSE 68; RESP 16; TEMP 99; O2SAT 95
[2017-05-15] MEDS: amLODIPine BESYLATE 5 MG TAB PO SCH (08:25)
[2017-05-15] MEDS: QUEtiapine FUMARATE 25 MG TAB PO SCH ×2 (08:25→21:12)
[2017-05-15] MEDS: POTASSIUM CHLORIDE 10 MEQ CONTROLLED RELEASE TAB PO SCH (08:25)
[2017-05-15] MEDS: METOPROLOL SUCCINATE 50 MG EXTENDED RELEASE TAB PO SCH (08:26)
[2017-05-15] MEDS: DOCUSATE SODIUM 50 MG/SENNA 8.6 MG TAB PO SCH ×2 (08:26→21:12)
[2017-05-15] MEDS: MIRTAZAPINE 15 MG TAB PO SCH (08:26)
[2017-05-15] MEDS: ANASTROZOLE 1 MG TAB PO SCH (08:31)
--- NOTE | 2017-05-15 11:51 | HHI.PR ---
Subjective Remarks patient awake and alert pain controlled with pain meds, + pain with movements no nausea or vomiting voiding spontaneously, + flatus Objective Vitals Vital Signs Date Time Temp Pulse Resp B/P Pulse Ox O2 Delivery O2 Flow Rate FiO2 05/15/17 08:00 99.0 68 16 132/70 95 05/15/17 04:00 98.6 70 18 112/60 95 05/15/17 00:00 98.0 69 19 110/56 94 05/14/17 20:00 99.1 72 16 108/58 94 05/14/17 16:00 98.6 67 16 100/56 94 05/14/17 12:00 99.3 69 18 112/57 95 I/O 05/14/17 05/14/17 05/14/17 05/15/17 05/15/17 05/15/17 07:00 15:00 23:00 07:00 15:00 23:00 Intake Total 877 ml 240 ml 480 ml 2151 ml Output Total 800 ml 350 ml Balance 77 ml 240 ml 480 ml 1801 ml Intake Oral 120 ml 240 ml 480 ml 120 ml IV Total 757 ml 2031 ml Output Urine Total 800 ml 350 ml # Voids 2 1 # Bowel Movements 2 Result Diagram: 05/13/17 0900 05/14/17 0737 Imaging Last Impressions Brain MRI 05/12/17 0000 Signed Impressions: Service Date/Time: Friday, May 12, 2017 13:54 - CONCLUSION: 1. Negative MRI of the brain performed without and with contrast for metastatic disease. 2. Stable periventricular white matter changes. Pepe Bustamante MD FACR Head CT 05/10/17 1347 Signed Impressions: Service Date/Time: Wednesday, May 10, 2017 15:06 - CONCLUSION: No acute disease. Koko Plasencia MD Chest X-Ray 05/10/17 1347 Signed Impressions: Service Date/Time: Wednesday, May 10, 2017 14:10 - CONCLUSION: 1. Redemonstration of large left lower lobe cavitary mass similar to recent CT exam. 2. Otherwise, no acute abnormality. Constantin Erickson MD Chest CT 05/10/17 0000 Signed Impressions: Service Date/Time: Wednesday, May 10, 2017 15:10 - CONCLUSION: 1. Interval worsening cavitary mass within the left lower lobe which now extends through the posterior chest wall and results in extensive lytic destruction of the adjacent posterior ribs. This measures 8.7 x 6.9 cm in greatest dimension. This is consistent with neoplasm. There is also enlargement of the right paratracheal and subcarinal mediastinal as well as left hilar lymphadenopathy which appear necrotic. 2. Underlying emphysematous changes within the lungs bilaterally. 3. Degenerative changes and scoliosis of the thoracic spine. 4. Indeterminate area of decreased perfusion versus complex/solid lesion within the upper pole of the right kidney which will be described in more detail on the CT of the abdomen report done this same day. Koko Plasencia MD Abdomen/Pelvis CT 05/10/17 0000 Signed Impressions: Service Date/Time: Wednesday, May 10, 2017 15:10 - CONCLUSION: 1. Area of decreased perfusion versus complex/solid mass within the upper pole of the right kidney measuring 2.5 x 2.1 cm which is nonspecific. Outpatient PET/CT scan maybe helpful for further evaluation if clinically indicated. 2. Uncomplicated colonic diverticulosis. 3. Degenerative changes and scoliosis of the thoraco-lumbar spine. 4. 1 cm left renal cyst. 5. Enlarging cavitary left lower lobe mass which invades the posterior chest wall and erodes the adjacent ribs which is described in detail in the CT of the chest report done the same day. Koko Plasencia MD Objective Remarks awake and alert, NAD, awake and alert, oriented x 3 anicteric lungs decreased breath sounds left, no wheezes regular rhythm abdomen- soft, nontender, good bowel sounds, no guarding moves all extremities - ff all commands extremities no edema moves all extremities equally Procedures none A/P Assessment and Plan 77-year-old female with underlying breast cancer/lung cancer COPD hypertension complaining of fever low-grade fever and generalized weakness with marked leukocytosis SIRS likely secondary to cavitary lung lesion/malignant process underlying Leukocytosis from infection and from malignancy ID- ff-- off antibiotics cultures negative CBC - WBC trending down 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 dC planning- patient has a flight back to [place] leaving from [place] at 7 am Wednesday will be DC here on wednesday 3 am- and will be travelling on the flight with a nurse d/w staff nurse- give pain meds prior to leaving for comfort Pedro Voss MD May 15, 2017 11:51 Pedro Voss MD May 15, 2017 11:51
[2017-05-15] MEDS ORDERED: OXYC-392 PO (11:53)
[2017-05-15 11:54] VITALS: BP 150/65; PULSE 68; RESP 20; TEMP 97.2; O2SAT 97
--- NOTE | 2017-05-15 11:56 | HHI.DS ---
Discharge Summary Admission Date May 10, 2017 at 16:13 Discharge Date: May 16, 2017 Admitting Diagnosis sepsis, altered mental status, UTI, cavitary lung mass (1) Acute encephalopathy ICD Code: G93.40 Diagnosis: Principal (2) Lung mass ICD Code: R91.8 Diagnosis: Principal (3) Generalized weakness ICD Code: R53.1 Diagnosis: Secondary (4) Hypercalcemia ICD Code: E83.52 Diagnosis: Secondary Procedures none Brief History - From Admission Patient is a 77-year-old female with history of breast cancer status post mastectomy, history of lung cancer, COPD on O2 nasal cannula who presented to the ER, complaining of feeling hot on and off with increasing back pain. Patient denies any cough or any sputum production, occasional headache, denies any diarrhea no urinary symptoms. Patient no complaints of abdominal discomfort. Patient still smokes 5-6 sticks per day. She is followed closely by Dr. Syed from oncology service and she was brought in today by her daughter because of increasing pain for the for past 4-5 days lower back pain. She has not been eating with poor by mouth appetite and feels very weak. Patient admitted for further evaluation. CBC/BMP: 05/13/17 0900 05/14/17 0737 Significant Findings Laboratory Tests Test 05/12/17 05/13/17 05/13/17 05/14/17 17:51 09:00 12:50 07:37 Iron Level 21 MCG/DL (50-170) Total Iron Binding Capacity 174 MCG/DL (250-450) Percent Iron Saturation 12.1 % (20-50) Ferritin 591 NG/ML (8-252) White Blood Count 14.7 TH/MM3 (4.0-11.0) Red Blood Count 3.40 MIL/MM3 (4.00-5.30) Hemoglobin 9.5 GM/DL (11.6-15.3) Hematocrit 29.5 % (35.0-46.0) Neutrophils (%) (Auto) 88.0 % (16.0-70.0) Lymphocytes (%) (Auto) 5.5 % (9.0-44.0) Neutrophils # (Auto) 13.0 TH/MM3 (1.8-7.7) Lymphocytes # (Auto) 0.8 TH/MM3 (1.0-4.8) Anion Gap 4 MEQ/L (5-15) Random Glucose 153 MG/DL 126 MG/DL (74-106) (74-106) Calcium Level 10.5 MG/DL (8.5-10.1) Total Protein 5.1 GM/DL (6.4-8.2) Albumin 1.7 GM/DL (3.4-5.0) Imaging Last Impressions Brain MRI 05/12/17 Signed Impressions: Service Date/Time: Friday, May 12, 2017 13:54 - CONCLUSION: 1. Negative MRI of the brain performed without and with contrast for metastatic disease. 2. Stable periventricular white matter changes. Pepe Bustamante MD FACR Head CT [id number] Signed Impressions: Service Date/Time: Wednesday, May 10, 2017 15:06 - CONCLUSION: No acute disease. Koko Plasencia MD Chest X-Ray [id number]/[id number] Signed Impressions: Service Date/Time: Wednesday, May 10, 2017 14:10 - CONCLUSION: 1. Redemonstration of large left lower lobe cavitary mass similar to recent CT exam. 2. Otherwise, no acute abnormality. Constantin Erickson MD Chest CT 05/10/17 Signed Impressions: Service Date/Time: Wednesday, May 10, 2017 15:10 - CONCLUSION: 1. Interval worsening cavitary mass within the left lower lobe which now extends through the posterior chest wall and results in extensive lytic destruction of the adjacent posterior ribs. This measures 8.7 x 6.9 cm in greatest dimension. This is consistent with neoplasm. There is also enlargement of the right paratracheal and subcarinal mediastinal as well as left hilar lymphadenopathy which appear necrotic. 2. Underlying emphysematous changes within the lungs bilaterally. 3. Degenerative changes and scoliosis of the thoracic spine. 4. Indeterminate area of decreased perfusion versus complex/solid lesion within the upper pole of the right kidney which will be described in more detail on the CT of the abdomen report done this same day. Koko Plasencia MD Abdomen/Pelvis CT 05/10/17 Signed Impressions: Service Date/Time: Wednesday, May 10, 2017 15:10 - CONCLUSION: 1. Area of decreased perfusion versus complex/solid mass within the upper pole of the right kidney measuring 2.5 x 2.1 cm which is nonspecific. Outpatient PET/CT scan maybe helpful for further evaluation if clinically indicated. 2. Uncomplicated colonic diverticulosis. 3. Degenerative changes and scoliosis of the thoraco-lumbar spine. 4. 1 cm left renal cyst. 5. Enlarging cavitary left lower lobe mass which invades the posterior chest wall and erodes the adjacent ribs which is described in detail in the CT of the chest report done the same day. Koko Plasencia MD PE at Discharge awake and alert, NAD, awake and alert, oriented x 3 anicteric lungs decreased breath sounds left, no wheezes regular rhythm abdomen- soft, nontender, good bowel sounds, no guarding moves all extremities - ff all commands extremities no edema moves all extremities equally Pt update on day of discharge awake and alert, tolerating po pain minimal with movements, voiding Hospital Course 77-year-old female with underlying breast cancer/lung cancer COPD hypertension complaining of fever low-grade fever and generalized weakness with marked leukocytosis SIRS likely secondary to cavitary lung lesion/malignant process underlying Leukocytosis from infection and from malignancy ID- ff-- off antibiotics cultures negative CBC - WBC trending down 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 dC planning- patient has a flight back to [place] leaving from [place] at 7 am Wednesday will be DC here on wednesday 3 am- and will be travelling on the flight with a nurse d/w staff nurse- give pain meds prior to leaving for comfort Pt Condition on Discharge: Stable Discharge Disposition: Disch to Another Hospital Discharge Time: <= 30 minutes Discharge Instructions DIET: Follow Instructions for: As Tolerated, No Restrictions Speech Therapy-Diet Recommends: Regular Activities you can perform: Weight Bearing as Nicole Activities to Avoid: Prolonged Standing, Strenuous Activity New Medications: Oxycodone (Oxycodone) 5 Mg Tab 5 MG PO Q4HR PRN PAIN SCALE 4 TO 10 #15 TAB Continued Medications: Amlodipine (Amlodipine) 5 Mg Tab 5 MG PO DAILY Blood Pressure Management #30 Ref 0 TAB Anastrozole (Anastrozole) 1 Mg Tab 1 MG PO DAILY Breast Cancer #30 Ref 0 TAB Fentanyl Patch 72 HR (Fentanyl Patch 72 HR) 25 Mcg/Hr Patch 25 MCG T-DERMAL Q72H Pain Management #10 Ref 0 PATCH Metoprolol Succinate ER 24 HR (Metoprolol Succinate ER 24 HR) 100 Mg Tab 100 MG PO DAILY #30 Ref 0 TAB Mirtazapine (Mirtazapine) 15 Mg Tab 15 MG PO DAILY Depression Control #30 Ref 0 TAB Oxycodone (Oxycodone) 5 Mg Cap 5 MG PO QID PAIN Ref 0 CAP Sennosides-Docusate Sodium (Senna Plus 8.6-50 mg) 1 Tab Tab 2 TAB PO BID Prevent Constipation #60 TAB Discontinued Medications: Triamterene (Dyrenium) 50 Mg Cap 25 MG PO DAILY Edema #60 Ref 0 CAP Pedro Voss MD May 15, 2017 11:56
[2017-05-15] MEDS ORDERED: QUET1TAB7 PO (13:12)
[2017-05-15] MEDS ORDERED: AMLO5TAB2 PO (13:14)
[2017-05-15] MEDS ORDERED: POTA-163 PO (13:20)
[2017-05-15 16:00] VITALS: BP 123/58; PULSE 72; RESP 18; TEMP 97.7; O2SAT 97
[2017-05-15] MEDS ORDERED: LOPERAMIDE HCL 2 MG CAP PO ONE (16:45)
[2017-05-15 20:00] VITALS: BP 122/59; PULSE 65; RESP 16; TEMP 100.2; O2SAT 95
[2017-05-15] MEDS: D5-NS + KCL 20 MEQ INJ 1,000 ML IV SCH (21:54)
[2017-05-16] VITALS: BP 111/58; PULSE 69; RESP 17; TEMP 99.3; O2SAT 94
[2017-05-16] MEDS: HYDROmorphone HCL PF 1 MG/ML VIAL IV PUSH PRN (03:36)
[2017-05-16 03:49] VITALS: BP 133/68; PULSE 74; RESP 16; TEMP 97.5; O2SAT 95
== END 2017-05-16 04:16 | disposition short-term general hospital (02) | DRG 180 ==
LOC: NEPC 13:32 → NEDA 16:13 → N05B 21:16 → HOCA 05-11 15:17
PROVIDERS: ADMIT Internal Medicine; ATTEND Internal Medicine
DX: C78.02 Secondary malignant neoplasm of left lung (principal); G93.40 Encephalopathy, unspecified; N17.9 Acute kidney failure, unspecified; G92 Toxic encephalopathy; R64 Cachexia; C79.51 Secondary malignant neoplasm of bone; E46 Unspecified protein-calorie malnutrition; R65.10 Systemic inflammatory response syndrome (SIRS) of non-infectious origin without acute organ dysfunction; F05 Delirium due to known physiological condition; N39.0 Urinary tract infection, site not specified; T40.4X5A Adverse effect of other synthetic narcotics, initial encounter; Z99.81 Dependence on supplemental oxygen; J44.9 Chronic obstructive pulmonary disease, unspecified; I10 Essential (primary) hypertension; R44.1 Visual hallucinations; Z85.3 Personal history of malignant neoplasm of breast; M19.90 Unspecified osteoarthritis, unspecified site; M54.5 Low back pain; G89.29 Other chronic pain; F17.210 Nicotine dependence, cigarettes, uncomplicated; G89.3 Neoplasm related pain (acute) (chronic); N28.89 Other specified disorders of kidney and ureter; Z91.19 Patient's noncompliance with other medical treatment and regimen; Z90.12 Acquired absence of left breast and nipple; Z85.828 Personal history of other malignant neoplasm of skin; R45.1 Restlessness and agitation; Z17.0 Estrogen receptor positive status [ER+]; K57.30 Diverticulosis of large intestine without perforation or abscess without bleeding; M41.9 Scoliosis, unspecified; N28.1 Cyst of kidney, acquired; Z51.5 Encounter for palliative care; Z80.3 Family history of malignant neoplasm of breast; Z80.0 Family history of malignant neoplasm of digestive organs; Z63.8 Other specified problems related to primary support group; Z68.20 Body mass index [BMI] 20.0-20.9, adult; E87.6 Hypokalemia; D50.9 Iron deficiency anemia, unspecified; Y92.009 Unspecified place in unspecified non-institutional (private) residence as the place of occurrence of the external cause; E83.52 Hypercalcemia
CPT/HCPCS: 36600; 70450; 70553; 71010; 71260; 74177; 76937; 80048; 80053; 81001; 82140; 82607; 82728; 82747; 82805; 82948; 83540; 83550; 83605; 84443; 84484; 85025; 85610; 87040; 87086; 87185; 87205; 93005; 96361; 96365; 99212; 99215; 99223; A9579; G0463; J0692; J1170; J2543; J3370; J3480; J7030; J7040; J7050; Q9967